=== PATIENT | male | born 1985 | race Caucasian/White ===

== ENCOUNTER 2016-10-05 18:18 | Emergency (ER) | payer OTHER ==
[2016-10-05 18:30] VITALS: RESP 18; TEMP 98.8
[2016-10-05] MEDS ORDERED: SODIUM CHLORIDE 0.9% 1,000 ML IV ONE (18:42)
[2016-10-05] MEDS ORDERED: KETOROLAC 30 MG/ML 1 ML VIAL IVP STA (18:42)
--- NOTE | 2016-10-05 18:46 | ED ---
Abdominal Pain HPI - General Chief Complaint: Abdominal Pain Stated Complaint: abd pain Time Seen by Provider: 10/05/16 18:28 Source: patient, RN notes reviewed Mode of arrival: ambulatory Limitations: no limitations - History of Present Illness Initial Comments: Patient is a 30-year-old male presents to the emergency room for evaluation of abdominal pain. Patient states abdominal pain began last night. Patient states he had a sharp constant right upper quadrant pain. Patient states she's had this type of pain before. Patient states she was here about 2 months ago with the same issue and they told him that nothing was wrong. Patient denies following up with the GI specialist or his primary care provider. Patient denies nausea, vomiting, diarrhea, constipation. Patient denies history of abdominal surgeries. Patient states his pain is worse with movement. Patient denies pain or burning during urination, trouble urinating or blood in the urine. Patient denies chest pain, shortness of breath, headache, dizziness, fevers, chills. Patient denies new foods. Patient states pain is not worsened with eating. - Related Data Home Medications Medication Instructions Recorded Confirmed Gabapentin 800 mg PO TID 06/25/16 10/05/16 Previous Rx's Medication Instructions Recorded Dicyclomine [Bentyl] 10 mg PO TID PRN #15 capsule 10/05/16 Allergies Allergy/AdvReac Type Severity Reaction Status Date / Time No Known Allergies Allergy Verified 10/05/16 18:44 Review of Systems ROS Statement: Those systems with pertinent positive or pertinent negative responses have been documented in the HPI. ROS Other: All systems not noted in ROS Statement are negative. 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 History of Any Multi-Drug Resistant Organisms: None Reported Past Surgical History: Joint Replacement, Orthopedic Surgery Additional Past Surgical History / Comment(s): Left jaw surgery with plate. Past Psychological History: Anxiety, Depression Smoking Status: Current every day smoker Past Alcohol Use History: None Reported Past Drug Use History: None Reported General Exam - General Exam Comments Initial Comments: Sitting in exam room in no acute distress. Limitations: no limitations General appearance: alert, in no apparent distress Head exam: Present: atraumatic, normocephalic, normal inspection Eye exam: Present: normal appearance ENT exam: Present: normal exam Neck exam: Present: normal inspection Respiratory exam: Present: normal lung sounds bilaterally. Absent: respiratory distress Cardiovascular Exam: Present: regular rate, normal rhythm, normal heart sounds GI/Abdominal exam: Present: soft, tenderness (RUQ), normal bowel sounds. Absent : distended, guarding, rebound, rigid Extremities exam: Present: normal inspection Back exam: Present: normal inspection Neurological exam: Present: alert, oriented X3, CN II-XII intact, normal gait Psychiatric exam: Present: normal affect, normal mood Skin exam: Present: warm, dry, intact, normal color. Absent: rash Course Vital Signs 10/05/16 10/05/16 18:27 21:13 Temperature 98.8 F 98.8 F Pulse Rate 99 77 Respiratory 18 18 Rate Blood Pressure 132/83 128/77 O2 Sat by Pulse 100 99 Oximetry Medical Decision Making - Medical Decision Making Patient a 30-year-old male presents to the emergency room for reevaluation of abdominal pain. Patient has been here multiple times for the same complaint. Labs show no significant findings. Advised patient to follow-up with GI specialist or his primary care provider for further evaluation. Patient states he understands everything that was discussed with him. Return parameters discussed. Case discussed with Dr. Chand. - Lab Data Result diagrams: 10/05/16 18:55 10/05/16 18:55 Lab Results 10/05/16 10/05/16 10/05/16 Range/Units 18:55 18:55 18:55 WBC 6.0 (3.8-10.6) k/uL RBC 5.15 (4.30-5.90) m/uL Hgb 15.5 (13.0-17.5) gm/dL Hct 47.1 (39.0-53.0) % MCV 91.3 (80.0-100.0) fL MCH 30.1 (25.0-35.0) pg MCHC 33.0 (31.0-37.0) g/dL RDW 11.8 (11.5-15.5) % Plt Count 171 (150-450) k/uL Neutrophils % 59 % Lymphocytes % 28 % Monocytes % 7 % Eosinophils % 2 % Basophils % 1 % Neutrophils # 3.6 (1.3-7.7) k/uL Lymphocytes # 1.7 (1.0-4.8) k/uL Monocytes # 0.4 (0-1.0) k/uL Eosinophils # 0.1 (0-0.7) k/uL Basophils # 0.1 (0-0.2) k/uL Sodium 142 (137-145) mmol/L Potassium 3.5 (3.5-5.1) mmol/L Chloride 100 (98-107) mmol/L Carbon Dioxide 30 (22-30) mmol/L Anion Gap 12 mmol/L BUN 8 L (9-20) mg/dL Creatinine 0.75 (0.66-1.25) mg/dL Est GFR (MDRD) Af Amer >60 (>60 ml/min/1.73 sqM) Est GFR (MDRD) Non-Af >60 (>60 ml/min/1.73 sqM) Glucose 89 (74-99) mg/dL Calcium 10.0 (8.4-10.2) mg/dL Total Bilirubin 0.6 (0.2-1.3) mg/dL AST 22 (17-59) U/L ALT 28 (21-72) U/L Alkaline Phosphatase 59 (38-126) U/L Total Protein 7.4 (6.3-8.2) g/dL Albumin 4.6 (3.5-5.0) g/dL Amylase 63 (30-110) U/L Lipase 66 (23-300) U/L Urine Color Colorless Urine Appearance Clear (Clear) Urine pH 7.5 (5.0-8.0) Ur Specific [place] 1.000 L (1.001-1.035) Urine Protein Negative (Negative) Urine Glucose (UA) Negative (Negative) Urine Ketones Negative (Negative) Urine Blood Negative (Negative) Urine Nitrate Negative (Negative) Urine Bilirubin Negative (Negative) Urine Urobilinogen <2.0 (<2.0) mg/dL Ur Leukocyte Esterase Negative (Negative) - Radiology Data Radiology results: report reviewed, image reviewed Disposition Clinical Impression: Abdominal pain Disposition: HOME SELF-CARE Condition: Good Instructions: Abdominal Pain (ED) Additional Instructions: Take prescribed medications as needed. Please follow-up with a GI specialist for further evaluation. If any new symptom arises, symptoms worsen or fever develops, return to ER as soon as possible. Prescriptions: Dicyclomine [Bentyl] 10 mg PO TID PRN #15 capsule PRN Reason: Pain Referrals: Carissa Schroeder MD [Primary Care Provider] - 1-2 days Trixie Nguyen MD [STAFF PHYSICIAN] - 1-2 days Time of Disposition: 20:49
[2016-10-05 19:25] LABS: Appearance,Urine Clear (Clear); Bilirubin,Urine Negative (Negative); Glucose,Urine (UA) Negative (Negative); Ketones,Urine Negative (Negative); Leukocyte Esterase,Urine Negative (Negative); Nitrite,Urine Negative (Negative); PH, Urine 7.5 (5.0-8.0); Protein,Urine Negative (Negative); UA Billing (MACRO vs. MICRO) CHEM; Urobilinogen,Urine <2.0 mg/dL (<2.0)
[2016-10-05 19:31] LABS: Basophils # (A) 0.1 k/uL (0-0.2); Basophils % (A) 1 %; CH 30.9; Eosinophils # (A) 0.1 k/uL (0-0.7); Eosinophils % (A) 2 %; HCT 47.1 % (39.0-53.0); HDW 2.49; HGB 15.5 gm/dL (13.0-17.5); Luc # (Auto) 0.17; Luc % (Auto) 3; Lymphocytes # (A) 1.7 k/uL (1.0-4.8); Lymphocytes % (A) 28 %; MCH 30.1 pg (25.0-35.0); MCV 91.3 fL (80.0-100.0); Mean Platelet Volume 8.9; Monocytes # (A) 0.4 k/uL (0-1.0); Monocytes % (A) 7 %; Neutrophils # (A) 3.6 k/uL (1.3-7.7); Neutrophils % (A) 59 %; RBC 5.15 m/uL (4.30-5.90); RDW 11.8 % (11.5-15.5); WBC (Perox) 6.22
[2016-10-05 19:37] LABS: ALT 28 U/L (21-72); AST 22 U/L (17-59); Alkaline Phosphatase 59 U/L (38-126); Amylase 63 U/L (30-110); Anion Gap 12 mmol/L; Blood Urea Nitrogen 8 mg/dL (9-20); Carbon Dioxide 30 mmol/L (22-30); Chloride 100 mmol/L (98-107); Glucose 89 mg/dL (74-99); Non-African American GFR(MDRD) >60 (>60 ml/min/1.73 sqM); Potassium 3.5 mmol/L (3.5-5.1); Sodium 142 mmol/L (137-145); Total Bilirubin 0.6 mg/dL (0.2-1.3); Total Protein 7.4 g/dL (6.3-8.2)
--- NOTE | 2016-10-05 20:09 | XR ---
EXAMINATION TYPE: XR KUB DATE OF EXAM: 10/05/2016 8:04 PM COMPARISON: 07/19/2016 INDICATION: Right upper quadrant pain TECHNIQUE: Single view abdomen upright view FINDINGS: There is a normal bowel gas pattern. Psoas margins are normal. No organomegaly is present. No suspicious air-fluid levels or differential air-fluid levels are evident. No free air is present. No abnormal calcifications are evident. IMPRESSION: 1. Normal upright abdomen
[2016-10-05] MEDS ORDERED: FAMOTIDINE 20 MG/2 ML VIAL IV STA (20:51)
[2016-10-05] MEDS ORDERED: DICYCLOMINE 20 MG TAB PO STA (20:51)
[2016-10-05 21:15] VITALS: BP 128/77; PULSE 77
== END 2016-10-05 21:21 | disposition home or self-care (01) ==
LOC: EC 18:18
DX: R10.11 Right upper quadrant pain (principal); G62.9 Polyneuropathy, unspecified; F17.200 Nicotine dependence, unspecified, uncomplicated; Z85.830 Personal history of malignant neoplasm of bone; Z79.899 Other long term (current) drug therapy
CPT/HCPCS: 36415; 80053; 82150; 83690; 85025; 81003; 74000; 99284; 96374; 96375; 96361; J1885

== ENCOUNTER 2016-10-08 20:40 | Emergency (ER) | payer OTHER ==
[2016-10-08 20:47] VITALS: BP 120/75; PULSE 100; RESP 20; TEMP 98.4
[2016-10-08] MEDS ORDERED: HYDROcodone/APAP 7.5-325MG 1 EACH TAB PO ONE (21:09)
[2016-10-08] MEDS ORDERED: IBUPROFEN 800 MG TAB PO STA (21:09)
--- NOTE | 2016-10-08 21:17 | ED ---
ENT HPI - General Chief complaint: Dental/Oral Stated complaint: Dental Pain Time Seen by Provider: 10/08/16 21:00 Source: patient, RN notes reviewed Mode of arrival: ambulatory Limitations: no limitations - History of Present Illness Initial comments: This is a 30-year-old male with a benign history states he has dental pain. He states he broke his 2 lower mid incisors off years ago they were glued back He broke off summary said pain intermittently since then he was on amoxicillin which she ran out. He does have appointment to see a dentist in [facility] in 1 week. He denies any fevers chills sweats is 8/10 pain. No drainage or discharge from the gums. No new injury. MD complaint: tooth pain - Related Data Home Medications Medication Instructions Recorded Confirmed Gabapentin 800 mg PO TID 06/25/16 10/08/16 Previous Rx's Medication Instructions Recorded Hydrocodone/Acetaminophen [[place] 1 each PO Q6HR PRN #20 tab 10/08/16 5-325] Ibuprofen [Motrin] 800 mg PO Q6HR PRN #20 tab 10/08/16 Allergies Allergy/AdvReac Type Severity Reaction Status Date / Time No Known Allergies Allergy Verified 10/08/16 20:57 Review of Systems ROS Statement: Those systems with pertinent positive or pertinent negative responses have been documented in the HPI. ROS Other: All systems not noted in ROS Statement are negative. 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 History of Any Multi-Drug Resistant Organisms: None Reported Past Surgical History: Joint Replacement, Orthopedic Surgery Additional Past Surgical History / Comment(s): Left jaw surgery with plate. Past Psychological History: Anxiety, Depression Smoking Status: Current every day smoker Past Alcohol Use History: None Reported Past Drug Use History: None Reported General Exam - General Exam Comments Initial Comments: This is a well-developed well-nourished awake alert oriented 3 male Limitations: no limitations General appearance: alert, anxious Head exam: Present: atraumatic, normocephalic, normal inspection Eye exam: Present: normal appearance, PERRL, EOMI. Absent: scleral icterus, conjunctival injection, periorbital swelling ENT exam: Present: mucous membranes moist, other (The lower anterior left incisors. Demonstrate fracture at about the mid level. 2 of them are fractured. No drainage or discharge. No gum erythema.) Neck exam: Present: normal inspection. Absent: tenderness, meningismus, lymphadenopathy Respiratory exam: Present: normal lung sounds bilaterally. Absent: respiratory distress, wheezes, rales, rhonchi, stridor Cardiovascular Exam: Present: regular rate, normal rhythm, normal heart sounds. Absent: systolic murmur, diastolic murmur, rubs, gallop, clicks Extremities exam: Present: normal inspection, full ROM Neurological exam: Present: alert, oriented X3, CN II-XII intact Psychiatric exam: Present: normal affect, normal mood Skin exam: Present: warm, dry, intact, normal color. Absent: rash Course Vital Signs 10/08/16 20:44 Temperature 98.4 F Pulse Rate 100 Respiratory 20 Rate Blood Pressure 120/75 O2 Sat by Pulse 100 Oximetry Medical Decision Making - Medical Decision Making At this time there is no indication of infection his pain likely from exposed nerve roots. Patient will be placed on appropriate pain medication is a keep his appointment next week with a dentist and return when necessary Disposition Clinical Impression: Fracture of tooth, Toothache Disposition: HOME SELF-CARE Condition: Good Instructions: Toothache (ED) Prescriptions: Hydrocodone/Acetaminophen [[place] 5-325] 1 each PO Q6HR PRN #20 tab PRN Reason: Pain Ibuprofen [Motrin] 800 mg PO Q6HR PRN #20 tab PRN Reason: Pain
== END 2016-10-08 21:22 | disposition home or self-care (01) ==
LOC: EC 20:40
DX: S02.5XXA Fracture of tooth (traumatic), initial encounter for closed fracture (principal); F17.200 Nicotine dependence, unspecified, uncomplicated; Z85.89 Personal history of malignant neoplasm of other organs and systems
CPT/HCPCS: 99282

== ENCOUNTER 2016-10-23 17:40 | Emergency (ER) | payer OTHER ==
[2016-10-23 17:54] VITALS: BP 142/71; PULSE 90; RESP 18; TEMP 98.7
--- NOTE | 2016-10-23 18:12 | ED ---
ENT HPI - General Chief complaint: Dental/Oral Stated complaint: oral pain Time Seen by Provider: 10/23/16 17:49 Source: patient, RN notes reviewed, old records reviewed Mode of arrival: ambulatory Limitations: no limitations - History of Present Illness Initial comments: Patient is a 30-year-old male with chief complaint of right lower dental pain for approximately one week. Patient reports that he is seeing a dentist next week in [place]. He reports that he isn't taking antibiotics that he's had left over at home for the past few days try to help with infection. He reports that his lower right molar gums were swelling. Patient states that he's been taking Motrin Tylenol with little relief the pain. Patient denies any swelling or over the face or inability to open and close the jaw. Patient reports that he does have a history of a jaw surgery a few years ago in a metal plate was installed after start was fractured. Patient denies any recent fever, chills, shortness of breath, chest pain, back pain, abdominal pain, nausea vomiting, numbness or tingling, dysuria or hematuria, constipation or diarrhea, headaches or visual changes, or any other current symptoms - Related Data Home Medications Medication Instructions Recorded Confirmed Gabapentin 800 mg PO TID 06/25/16 10/08/16 Previous Rx's Medication Instructions Recorded Hydrocodone/Acetaminophen [[place] 1 each PO Q6HR PRN #20 tab 10/08/16 5-325] Ibuprofen [Motrin] 800 mg PO Q6HR PRN #20 tab 10/08/16 HYDROcodone/APAP 5-325MG [[place] 1 tab PO Q6HR PRN #12 tab 10/23/16 5-325] Penicillin V Potassium [Pen Vee K] 500 mg PO QID #28 tab 10/23/16 Allergies Allergy/AdvReac Type Severity Reaction Status Date / Time No Known Allergies Allergy Verified 10/08/16 20:57 Review of Systems ROS Statement: Those systems with pertinent positive or pertinent negative responses have been documented in the HPI. ROS Other: All systems not noted in ROS Statement are negative. 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 History of Any Multi-Drug Resistant Organisms: None Reported Past Surgical History: Joint Replacement, Orthopedic Surgery Additional Past Surgical History / Comment(s): Left jaw surgery with plate. Past Psychological History: Anxiety, Depression Smoking Status: Current every day smoker Past Alcohol Use History: None Reported Past Drug Use History: None Reported General Exam Limitations: no limitations General appearance: alert, in no apparent distress Head exam: Present: atraumatic, normocephalic, normal inspection Eye exam: Present: normal appearance, PERRL, EOMI. Absent: scleral icterus, conjunctival injection, periorbital swelling ENT exam: Present: normal exam, normal oropharynx, mucous membranes moist, TM's normal bilaterally, other (Patient has extremely poor dentition. Evidence of dental caries in tooth #31, 19, 3, 14.) Neck exam: Present: normal inspection. Absent: tenderness, meningismus, lymphadenopathy Respiratory exam: Present: normal lung sounds bilaterally. Absent: respiratory distress, wheezes, rales, rhonchi, stridor Cardiovascular Exam: Present: regular rate, normal rhythm, normal heart sounds. Absent: systolic murmur, diastolic murmur, rubs, gallop, clicks GI/Abdominal exam: Present: soft, normal bowel sounds. Absent: distended, tenderness, guarding, rebound, rigid Extremities exam: Present: normal inspection, full ROM, normal capillary refill. Absent: tenderness, pedal edema, joint swelling, calf tenderness Back exam: Present: normal inspection Neurological exam: Present: alert, oriented X3, CN II-XII intact Psychiatric exam: Present: normal affect, normal mood Skin exam: Present: warm, dry, intact, normal color. Absent: rash Course Vital Signs 10/23/16 17:52 Temperature 98.7 F Pulse Rate 90 Respiratory 18 Rate Blood Pressure 142/71 O2 Sat by Pulse 98 Oximetry Medical Decision Making - Medical Decision Making Patient is a 30-year-old male with chief complaint of right lower dental pain for approximately one week. Patient reports that he is seeing a dentist next week in [place]. He reports that he isn't taking antibiotics that he's had left over at home for the past few days try to help with infection. He reports that his lower right molar gums were swelling. Patient states that he's been taking Motrin Tylenol with little relief the pain. Patient is declining to have a dental block at this time. Patient will be given a prescription for Pen- V[place]rn Agui[place], [place] 5 #10. Patient advised to follow up with primary care provider. Patient understands that he needs follow-up with the dentist as well and return parameters were discussed. Disposition Clinical Impression: Pain, dental, Dental caries Disposition: HOME SELF-CARE Condition: Good Instructions: Dental Caries (ED), Toothache (ED) Additional Instructions: Patient denies follow-up with dentist. Patient also advised to return to emergency department if any increased signs of swelling or unable to open or close jaw occur. Take antibiotics as prescribed and his pain medication as instructed. Prescriptions: HYDROcodone/APAP 5-325MG [[place] 5-325] 1 tab PO Q6HR PRN #12 tab PRN Reason: Pain Penicillin V Potassium [Pen Vee K] 500 mg PO QID #28 tab Referrals: Nida Falcon FNPBC [Primary Care Provider] - 1-2 days Time of Disposition: 18:09
== END 2016-10-23 18:20 | disposition home or self-care (01) ==
LOC: EC 17:40
DX: K02.9 Dental caries, unspecified (principal); G62.9 Polyneuropathy, unspecified; F17.200 Nicotine dependence, unspecified, uncomplicated; Z85.831 Personal history of malignant neoplasm of soft tissue; Z79.899 Other long term (current) drug therapy
CPT/HCPCS: 99283

== ENCOUNTER → 2016-10-30 | Outpatient (CLI) | payer OTHER ==
--- NOTE | 2016-10-30 16:25 | CT ---
EXAMINATION TYPE: CT shoulder LT wo con DATE OF EXAM: 10/30/2016 3:51 PM COMPARISON: NONE HISTORY: History of osteogenic sarcoma as a child. Surgery done to implant fibula to shoulder. Pain x years. CT DLP: 294.90 mGycm Automated exposure control for dose reduction was used. FINDINGS: Axial images at 3 mm thick sections were obtained. Reconstructed images in the coronal and sagittal p bernardo are reviewed. Three-D reconstructed images are reviewed. The scapula appears intact. The glenoid appears unremarkable. The patient's transplanted proximal humerus appears intact. There multiple surgical clips within the distal diaphyseal region. The transplanted fibula replacing the humerus appears small but intact with out fracture. Soft tissues appear unremarkable. No cortical erosions are evident. No elevated periosteal reaction i s evident. IMPRESSION: UNREMARKABLE POST TRANSPLANT AND FIBULA LEFT HUMERAL REGION. NO ACUTE OSSEOUS ABNORMALITY IS IDENTIFI ED.
== END | disposition home or self-care (01) ==
LOC: RADCTMAIN 15:32
PROVIDERS: ATTEND Nurse Practitioner Family
DX: M25.512 Pain in left shoulder (principal); Z94.6 Bone transplant status

== ENCOUNTER 2016-11-09 13:10 | Emergency (ER) | payer OTHER ==
[2016-11-09 13:18] VITALS: BP 133/73; PULSE 89; RESP 20; TEMP 97.7
--- NOTE | 2016-11-09 13:35 | ED ---
General Adult HPI - General Chief complaint: Dental/Oral Stated complaint: Dental Pain Time Seen by Provider: 11/09/16 13:20 Source: patient, RN notes reviewed Mode of arrival: ambulatory Limitations: no limitations - History of Present Illness Initial comments: This is a 31-year-old male who presents with dental pain 2 weeks. Patient states he has already been an approximately 1 week of penicillin and states he has 1 week left. Patient states he had some swelling to the front lower jaw last week that has improved with penicillin. Patient states he presents to the today has a cannot get his pain under control. Patient states he has been taking Tylenol and Motrin for the pain. With further questioning patient also states he has tramadol at home which he has been taking as well. Patient denies any fever/chills, foul odor or drainage from the area. Patient states he has a follow-up with a dentist on Thursday for tooth extraction. Patient admits to tobacco use but denies any alcohol or drug use. Patient denies any recent shortness breath, chest pain, abdominal pain, nausea/vomiting/diarrhea, back pain, numbness, tingling, hematuria, headache, or visual changes, or any other complaints. - Related Data Home Medications Medication Instructions Recorded Confirmed Gabapentin 800 mg PO TID 06/25/16 10/30/16 Previous Rx's Medication Instructions Recorded Ibuprofen [Motrin] 800 mg PO Q6HR PRN #20 tab 10/08/16 HYDROcodone/APAP 5-325MG [[place] 1 tab PO Q6HR PRN #15 tab 10/30/16 5-325] Allergies Allergy/AdvReac Type Severity Reaction Status Date / Time No Known Allergies Allergy Verified 11/09/16 13:15 Review of Systems ROS Statement: Those systems with pertinent positive or pertinent negative responses have been documented in the HPI. ROS Other: All systems not noted in ROS Statement are negative. 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 History of Any Multi-Drug Resistant Organisms: None Reported Past Surgical History: Joint Replacement, Orthopedic Surgery Additional Past Surgical History / Comment(s): Left jaw surgery with plate. Past Psychological History: Anxiety, Depression Smoking Status: Current every day smoker Past Alcohol Use History: None Reported Past Drug Use History: None Reported General Exam - General Exam Comments Initial Comments: General: The patient is awake and alert, in no distress, and does not appear acutely ill. Eye: Pupils are equal, round and reactive to light, extra-ocular movements are intact. No nystagmus. There is normal conjunctiva bilaterally. No signs of icterus. Ears: TMs pink and pearly with intact cone of light bilaterally. Normal external ear canals Nose: Nasal turbinates pink and moist Mouth and throat: Poor dental hygiene, there is tenderness on palpation of teeth 24 and 23 and also #20. There is no surrounding erythema, drainage or swelling. There are moist mucous membranes and no oral lesions. Neck: The neck is supple, there is no tenderness or JVD. Cardiovascular: There is a regular rate and rhythm. No murmur, rub or gallop is appreciated. Respiratory: Lungs are clear to auscultation, respirations are non-labored, breath sounds are equal. No wheezes, stridor, rales, or rhonchi. Musculoskeletal: Normal ROM, no tenderness. Strength 5/5. Sensation intact. Radial pulses equal bilaterally 2+. Neurological: A&O x 3. CN II-XII intact, There are no obvious motor or sensory deficits. Coordination appears grossly intact. Speech is normal. Skin: Skin is warm and dry and no rashes or lesions are noted. Psychiatric: Cooperative, appropriate mood & affect, normal judgment. Limitations: no limitations Course Vital Signs 11/09/16 13:15 Temperature 97.7 F Pulse Rate 89 Respiratory 20 Rate Blood Pressure 133/73 O2 Sat by Pulse 98 Oximetry Medical Decision Making - Medical Decision Making This is a 31-year-old male who presents with dental pain 2 weeks. Patient is already on penicillin and states he has a week left. On physical exam patient is afebrile in the EC. Poor dental hygiene, there is tenderness on palpation of teeth 24 and 23 and also #20. There is no surrounding erythema, drainage or swelling. There are moist mucous membranes and no oral lesions. Patient already has tramadol, Tylenol and Motrin at home. I discussed that patient should continue his tramadol, Tylenol and Motrin and he needs to follow-up with his dentist for any further pain medication. I discussed that patient should finish his entire course of antibiotics. Patient was just seen in the EC 10 days ago and stated he had a follow-up in 1 week with his dentist and patient never followed up. I discussed that patient will receive one [place] before discharge. I discussed return parameters. I discussed the importance of following up with a dentist. Discussed that patient should follow up with PCP in one to 2 days or return to the EC for any worsening symptoms or for any further concerns. Patient was receptive to this plan and patient will be discharged home. Disposition Clinical Impression: Pain, dental Disposition: HOME SELF-CARE Condition: Good Instructions: Toothache (ED) Additional Instructions: Please continue Tylenol and Motrin. Please use the tramadol you have at home for breakthrough pain only. Please use medication as discussed. Please continue your antibiotics and follow up with your dentist. May use warm compresses to the area. [facility] dental plan: [address] [place] [address], . [employer]: Have to pay $50 for x -rays and the rest is covered. [phone]. Please follow-up with family doctor in the next 2 days of symptoms have not improved. Please return to emergency room if the symptoms increase or worsen or for any other concerns. Referrals: Bernie Groves MD [Primary Care Provider] - 1-2 days Time of Disposition: 13:43
[2016-11-09] MEDS ORDERED: HYDROcodone/APAP 5-325MG 1 EACH TAB PO STA (13:42)
== END 2016-11-09 13:56 | disposition home or self-care (01) ==
LOC: EC 13:10
DX: K08.89 Other specified disorders of teeth and supporting structures (principal); F17.200 Nicotine dependence, unspecified, uncomplicated; Z85.830 Personal history of malignant neoplasm of bone; Z79.899 Other long term (current) drug therapy
CPT/HCPCS: 99282

== ENCOUNTER 2016-11-15 00:01 | Emergency (ER) | payer OTHER ==
[2016-11-15 00:11] VITALS: BP 132/73; PULSE 98; RESP 16
--- NOTE | 2016-11-15 00:50 | ED ---
ENT HPI - General Chief complaint: Dental/Oral Stated complaint: dental pain Time Seen by Provider: 11/15/16 00:23 Source: patient, RN notes reviewed, old records reviewed Mode of arrival: ambulatory Limitations: no limitations - History of Present Illness Initial comments: Patient is 31-year-old male with chief complaint of chronic lower dental pain. Patient has been here multiple times in the past month for pain of the similar tooth. He continues to state that he's been trying to go to a dentist but minute appointment gets declined. Patient states that he had a appointment on last Thursday however he was unable to fulfill the appointment because they wanted a high down payment. Patient reports that he called another dental clinic and is seeing [facility] on the following Thursday. Patient states that he has been taking Motrin Tylenol in the meantime. He states that his pain is a more severe. He states that he will never come back to emergency department again for pain medicine until he can see this primary care provider as well as the dentist next week. Patient denies any fever or chills or increased swelling. He states that he is antibiotics from his previous trip to the emergency department. Patient denies any nausea or vomiting or shortness of breath. - Related Data Home Medications Medication Instructions Recorded Confirmed Gabapentin 800 mg PO TID 06/25/16 11/15/16 Previous Rx's Medication Instructions Recorded HYDROcodone/APAP 5-325MG [[place] 1 tab PO Q6HR PRN #8 tab 11/15/16 5-325] Allergies Allergy/AdvReac Type Severity Reaction Status Date / Time codeine Allergy Rash/Hives Verified 11/15/16 00:11 Review of Systems ROS Statement: Those systems with pertinent positive or pertinent negative responses have been documented in the HPI. ROS Other: All systems not noted in ROS Statement are negative. 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 History of Any Multi-Drug Resistant Organisms: None Reported Past Surgical History: Joint Replacement, Orthopedic Surgery Additional Past Surgical History / Comment(s): Left jaw surgery with plate. Past Psychological History: Anxiety, Depression Smoking Status: Current every day smoker Past Alcohol Use History: None Reported Past Drug Use History: None Reported General Exam - General Exam Comments Initial Comments: Pleasant 31-year-old male. No distress. Limitations: no limitations General appearance: alert, in no apparent distress Head exam: Present: atraumatic, normocephalic, normal inspection Eye exam: Present: normal appearance, PERRL, EOMI. Absent: scleral icterus, conjunctival injection, periorbital swelling ENT exam: Present: normal exam, mucous membranes moist. Absent: normal oropharynx (Chronic poor dentition.) Neck exam: Present: normal inspection. Absent: tenderness, meningismus, lymphadenopathy Respiratory exam: Present: normal lung sounds bilaterally. Absent: respiratory distress, wheezes, rales, rhonchi, stridor Cardiovascular Exam: Present: regular rate, normal rhythm, normal heart sounds. Absent: systolic murmur, diastolic murmur, rubs, gallop, clicks GI/Abdominal exam: Present: soft, normal bowel sounds. Absent: distended, tenderness, guarding, rebound, rigid Extremities exam: Present: normal inspection, full ROM, normal capillary refill. Absent: tenderness, pedal edema, joint swelling, calf tenderness Back exam: Present: normal inspection Neurological exam: Present: alert, oriented X3, CN II-XII intact Psychiatric exam: Present: normal affect, normal mood Skin exam: Present: warm, dry, intact, normal color. Absent: rash Course Vital Signs 11/15/16 00:07 Pulse Rate 98 Respiratory 16 Rate Blood Pressure 132/73 O2 Sat by Pulse 100 Oximetry Medical Decision Making - Medical Decision Making Patient is 31-year-old male with chief complaint of chronic lower dental pain. Patient has been here multiple times in the past month for pain of the similar tooth. He continues to state that he's been trying to go to a dentist but minute appointment gets declined. Patient states that he had a appointment on last Thursday however he was unable to fulfill the appointment because they wanted a high down payment. Patient reports that he called another dental clinic and is seeing [facility] on the following Thursday. Patient reports that he has no further pain medication at this time. He states he does have antibiotics left. Patient will be given a prescription for 5 [place]. I discussed the has to follow-up. I discussed he'll not be allowed to receive anything further in the emergency department. Disposition Clinical Impression: Dental implant pain Disposition: HOME SELF-CARE Condition: Good Instructions: Dental Caries (ED) Additional Instructions: Follow-up with dentist on appointment. Patient apply Orajel over the teeth. Return to emergency department any alarming signs or symptoms occur. Continue to complete antibiotic. Prescriptions: HYDROcodone/APAP 5-325MG [[place] 5-325] 1 tab PO Q6HR PRN #8 tab PRN Reason: Pain Referrals: Bernie Groves MD [Primary Care Provider] - 1-2 days Time of Disposition: 00:50
== END 2016-11-15 00:57 | disposition home or self-care (01) ==
LOC: EC 00:01
DX: K08.89 Other specified disorders of teeth and supporting structures (principal); G89.18 Other acute postprocedural pain; F41.9 Anxiety disorder, unspecified; F32.9 Major depressive disorder, single episode, unspecified; F17.200 Nicotine dependence, unspecified, uncomplicated; Z79.899 Other long term (current) drug therapy; Z88.5 Allergy status to narcotic agent; Z98.890 Other specified postprocedural states; Y83.8 Other surgical procedures as the cause of abnormal reaction of the patient, or of later complication, without mention of misadventure at the time of the procedure
CPT/HCPCS: 99283

== ENCOUNTER 2016-12-08 15:07 | Emergency (ER) | payer OTHER ==
[2016-12-08] MEDS ORDERED: SODIUM CHLORIDE 0.9% 1,000 ML IV ONE (15:55)
[2016-12-08] MEDS ORDERED: MORPHINE SULFATE 4 MG/ML SYRINGE IVP STA (15:55)
[2016-12-08] MEDS ORDERED: ONDANSETRON 4 MG/2 ML VIAL IVP STA (15:55)
--- NOTE | 2016-12-08 15:55 | ED ---
Abdominal Pain HPI - General Chief Complaint: Abdominal Pain Stated Complaint: Abd Pain Time Seen by Provider: 12/08/16 15:31 Source: patient, RN notes reviewed, old records reviewed Mode of arrival: ambulatory Limitations: no limitations - History of Present Illness Initial Comments: 31-year-old male presenting for right upper quadrant abdominal pain. Patient states he's had pain present for the past 3 days which is gradually worsening. He denies any nausea or vomiting associated. He denies any fevers or chills. States he has had this type of pain in the past. He has had a previous ultrasound about 6 months ago. He has not followed up with GI or his PCP for this recently. He has tried NSAIDs without relief. - Related Data Home Medications Medication Instructions Recorded Confirmed Gabapentin 800 mg PO TID PRN 06/25/16 12/08/16 Sertraline HCl [Zoloft] 50 mg PO HS 12/08/16 12/08/16 Previous Rx's Medication Instructions Recorded Dicyclomine [Bentyl] 20 mg PO QID PRN #16 tablet 12/08/16 HYDROcodone/APAP 5-325MG [[place] 1 tab PO Q6HR PRN #12 tab 12/08/16 5-325] Ibuprofen [Motrin] 800 mg PO Q8HR PRN #21 tab 12/08/16 Ondansetron Odt [Zofran Odt] 4 mg PO Q8HR PRN #12 tab 12/08/16 Allergies Allergy/AdvReac Type Severity Reaction Status Date / Time codeine Allergy Rash/Hives/ Verified 12/08/16 16:21 Itching Review of Systems ROS Statement: Those systems with pertinent positive or pertinent negative responses have been documented in the HPI. ROS Other: All systems not noted in ROS Statement are negative. 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 History of Any Multi-Drug Resistant Organisms: None Reported Past Surgical History: Joint Replacement, Orthopedic Surgery Additional Past Surgical History / Comment(s): Left jaw surgery with plate. Past Psychological History: Anxiety, Depression Smoking Status: Current every day smoker Past Alcohol Use History: None Reported Past Drug Use History: None Reported General Exam - General Exam Comments Initial Comments: General: Awake and Alert. No acute distress. Does not appear acutely ill. Eyes: GILMA, EOM intact. No nystagmus. No scleral icterus. HENT: Atraumatic, normocephalic. Mucous membranes moist. Trachea midline. Neck: The neck is supple, there is no tenderness or JVD. Cardiovascular: Regular rate and rhythm. No murmur, rub, or gallop is appreciated. Distal pulses intact. Respiratory: Lungs are clear to auscultation bilaterally. No wheezes, rales, rhonchi. No respiratory distress. Gastrointestinal: Soft, mild right upper quadrant tenderness. No rebound or guarding. Non-distended. No masses or organomegaly noted. No CVA tenderness. Musculoskeletal: No tenderness. Normal ROM. No gross deformity. No strength deficits. Neurological: A&Ox3. CN II-XII grossly intact, There are no obvious motor or sensory deficits. Coordination appears grossly intact. Speech is normal. Skin: Skin is warm and dry and no rashes or lesions are noted. Psychiatric: Cooperative, appropriate mood & affect, normal judgment. Limitations: no limitations Course Vital Signs 12/08/16 12/08/16 12/08/16 15:18 16:11 17:29 Temperature 98.0 F 98 F Pulse Rate 69 68 70 Respiratory 18 16 16 Rate Blood Pressure 149/79 141/88 126/62 O2 Sat by Pulse 100 99 98 Oximetry Medical Decision Making - Medical Decision Making 31-year-old male presenting for right upper quadrant pain. Patient with mild right upper quadrant tenderness on exam but no evidence of acute peritonitis. Per review of records patient has had recurrent pain in this area over several previous visits. He has had a previous ultrasound about 6 months ago which showed gallbladder contraction but no acute cholelithiasis or cholecystitis. Lab work was performed again today which was grossly unremarkable. No evidence of biliary obstructive process at this time. On reevaluation patient states he is feeling improved. Per review of records, I have previously seen this patient and recommended HIDA scan for further evaluation that time. Patient has not followed up with PCP or GI at this time. Recommend he follow up and have outpatient HIDA scan further evaluation of biliary dyskinesia. Referral for GI provided, although we discussed he may go through his PCP for this as well. Discussed symptomatic management and Rx provided in the interim. Discussed concerning signs symptoms for immediate return to the ED. Patient is agreeable with plan and discharge. - Lab Data Result diagrams: 12/08/16 16:00 12/08/16 16:00 Lab Results 12/08/16 12/08/16 Range/Units 16:00 16:00 WBC 7.0 (3.8-10.6) k/uL RBC 5.21 (4.30-5.90) m/uL Hgb 16.2 (13.0-17.5) gm/dL Hct 48.7 (39.0-53.0) % MCV 93.5 (80.0-100.0) fL MCH 31.1 (25.0-35.0) pg MCHC 33.3 (31.0-37.0) g/dL RDW 13.1 (11.5-15.5) % Plt Count 196 (150-450) k/uL Neutrophils % 55 % Lymphocytes % 32 % Monocytes % 7 % Eosinophils % 2 % Basophils % 0 % Neutrophils # 3.9 (1.3-7.7) k/uL Lymphocytes # 2.3 (1.0-4.8) k/uL Monocytes # 0.5 (0-1.0) k/uL Eosinophils # 0.1 (0-0.7) k/uL Basophils # 0.0 (0-0.2) k/uL Sodium 144 (137-145) mmol/L Potassium 3.8 (3.5-5.1) mmol/L Chloride 104 (98-107) mmol/L Carbon Dioxide 29 (22-30) mmol/L Anion Gap 11 mmol/L BUN 10 (9-20) mg/dL Creatinine 0.76 (0.66-1.25) mg/dL Est GFR (MDRD) Af Amer >60 (>60 ml/min/1.73 sqM) Est GFR (MDRD) Non-Af >60 (>60 ml/min/1.73 sqM) Glucose 96 (74-99) mg/dL Calcium 10.2 (8.4-10.2) mg/dL Magnesium 2.1 (1.6-2.3) mg/dL Total Bilirubin 0.8 (0.2-1.3) mg/dL AST 38 (17-59) U/L ALT 39 (21-72) U/L Alkaline Phosphatase 69 (38-126) U/L Total Protein 7.9 (6.3-8.2) g/dL Albumin 5.0 (3.5-5.0) g/dL Lipase 62 (23-300) U/L - Radiology Data Radiology results: report reviewed Disposition Clinical Impression: Nonspecific abdominal pain Disposition: HOME SELF-CARE Condition: Stable Instructions: Abdominal Pain (ED) Additional Instructions: Please follow up with your regular doctor or a GI specialist to schedule a HIDA scan. Prescriptions: Dicyclomine [Bentyl] 20 mg PO QID PRN #16 tablet PRN Reason: abdominal pain HYDROcodone/APAP 5-325MG [[place] 5-325] 1 tab PO Q6HR PRN #12 tab PRN Reason: Pain Ibuprofen [Motrin] 800 mg PO Q8HR PRN #21 tab PRN Reason: Pain Ondansetron Odt [Zofran Odt] 4 mg PO Q8HR PRN #12 tab PRN Reason: Nausea Referrals: Bernie Groves MD [Primary Care Provider] - 1-2 days Trixie Nguyen MD [STAFF PHYSICIAN] - 1-2 days Time of Disposition: 17:14
[2016-12-08 16:12] VITALS: RESP 16
[2016-12-08 16:22] LABS: Basophils % (A) 0 %; CH 30.8; CHCM 33.1; Eosinophils # (A) 0.1 k/uL (0-0.7); Eosinophils % (A) 2 %; HCT 48.7 % (39.0-53.0); HDW 2.48; HGB 16.2 gm/dL (13.0-17.5); Luc # (Auto) 0.25; Luc % (Auto) 4; Lymphocytes # (A) 2.3 k/uL (1.0-4.8); Lymphocytes % (A) 32 %; MCH 31.1 pg (25.0-35.0); MCHC 33.3 g/dL (31.0-37.0); MCV 93.5 fL (80.0-100.0); Mean Platelet Volume 7.9; Monocytes # (A) 0.5 k/uL (0-1.0); Monocytes % (A) 7 %; Neutrophils # (A) 3.9 k/uL (1.3-7.7); Neutrophils % (A) 55 %; RBC 5.21 m/uL (4.30-5.90); RDW 13.1 % (11.5-15.5); WBC (Perox) 7.22
[2016-12-08 16:32] LABS: ALT 39 U/L (21-72); AST 38 U/L (17-59); Alkaline Phosphatase 69 U/L (38-126); Anion Gap 11 mmol/L; Blood Urea Nitrogen 10 mg/dL (9-20); Calcium 10.2 mg/dL (8.4-10.2); Carbon Dioxide 29 mmol/L (22-30); Chloride 104 mmol/L (98-107); Glucose 96 mg/dL (74-99); Magnesium 2.1 mg/dL (1.6-2.3); Non-African American GFR(MDRD) >60 (>60 ml/min/1.73 sqM); Potassium 3.8 mmol/L (3.5-5.1); Sodium 144 mmol/L (137-145); Total Bilirubin 0.8 mg/dL (0.2-1.3); Total Protein 7.9 g/dL (6.3-8.2)
[2016-12-08] MEDS ORDERED: KETOROLAC 30 MG/ML 1 ML VIAL IVP STA (17:10)
[2016-12-08 17:33] VITALS: BP 126/62; PULSE 70; TEMP 98
== END 2016-12-08 17:33 | disposition home or self-care (01) ==
LOC: EC 15:07
DX: R10.11 Right upper quadrant pain (principal); F32.9 Major depressive disorder, single episode, unspecified; F17.200 Nicotine dependence, unspecified, uncomplicated; Z85.830 Personal history of malignant neoplasm of bone; Z88.5 Allergy status to narcotic agent; Z79.899 Other long term (current) drug therapy
CPT/HCPCS: 99284; 96374; 96375 ×2; 96361; 36415; 80053; 83690; 83735; 85025; J2270; J2405; J1885

== ENCOUNTER 2016-12-14 15:50 | Emergency (ER) | payer OTHER ==
[2016-12-14 15:56] VITALS: BP 136/93; PULSE 97; RESP 20; TEMP 98.5
--- NOTE | 2016-12-14 16:33 | ED ---
Wound/Laceration HPI - General Chief Complaint: Wound/Laceration Stated Complaint: finger lac-[facility] Time Seen by Provider: 12/14/16 16:04 Source: patient Mode of arrival: ambulatory Limitations: no limitations - History of Present Illness Initial Comments: Patient is a 31-year-old right-handed white male presenting to the emergency department with complaints of laceration to the ulnar side of his distal fifth digit. 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 Patient states he tried to catch the glass and cut his finger. Onset/Timin -: minutes(s) Extremity Location: Right: Hand (Ulnar side of distal fifth digit ) Place: work Patient Tetanus UTD: Yes Context: accidental Associated Symptoms: pain (Patient complains of a burning sensation currently rates pain 7 out of 10) Treatments Prior to Arrival: other (Patient states he flushed laceration with water immediately after cutting it) - Related Data Home Medications Medication Instructions Recorded Confirmed Gabapentin 800 mg PO TID PRN 06/25/16 12/08/16 Sertraline HCl [Zoloft] 50 mg PO HS 12/08/16 12/08/16 Previous Rx's Medication Instructions Recorded Dicyclomine [Bentyl] 20 mg PO QID PRN #16 tablet 12/08/16 HYDROcodone/APAP 5-325MG [[place] 1 tab PO Q6HR PRN #12 tab 12/08/16 5-325] Ibuprofen [Motrin] 800 mg PO Q8HR PRN #21 tab 12/08/16 Ondansetron Odt [Zofran Odt] 4 mg PO Q8HR PRN #12 tab 12/08/16 Allergies Allergy/AdvReac Type Severity Reaction Status Date / Time codeine Allergy Rash/Hives/ Verified 12/14/16 15:55 Itching Review of Systems ROS Statement: Those systems with pertinent positive or pertinent negative responses have been documented in the HPI. ROS Other: All systems not noted in ROS Statement are negative. 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 History of Any Multi-Drug Resistant Organisms: None Reported Past Surgical History: Joint Replacement, Orthopedic Surgery Additional Past Surgical History / Comment(s): Left jaw surgery with plate. Past Psychological History: Anxiety, Depression Smoking Status: Current every day smoker Past Alcohol Use History: None Reported Past Drug Use History: None Reported General Exam - General Exam Comments Initial Comments: GENERAL: Pt awake and alert, well-appearing, well-nourished, and in no acute distress. HEAD: Atraumatic, normocephalic. EYES: Pupils equal, round, and reactive to light, extraocular movements intact, sclera anicteric, conjunctiva are normal. ENT: Moist mucous membranes. NECK:supple without lymphadenopathy or JVD. LUNGS: Breath sounds clear to auscultation bilaterally. No wheezes, rales, or rhonchi. HEART: Heart S1, S2, no S3 or S4. Regular rate and rhythm. No murmurs, rubs or gallops. ABDOMEN: Soft, nontender, nondistended, normoactive bowel sounds. EXTREMITIES: Palpable peripheral pulses. Full range of motion of right hand. NEUROLOGICAL: Pt oriented x 3. No focal deficits. Strength and sensation grossly intact. PSYCH: Normal mood, normal affect. SKIN: Warm, dry. Irregular 2 mm laceration noted to ulnar distal fifth digit. Limitations: no limitations Right Hand Wrist exam: Present: normal inspection, full ROM, tenderness, laceration. Absent: swelling, ecchymosis Neuro motor exam: Present: wrist extension intact, thumb opposition intact, thumb IP flexion intact, thumb adduction intact, fingers 2-5 abduction intact Neurosensory exam: Present: 2-point discrimination, radial nerve intact, ulnar nerve intact, median nerve intact Vascular: Present: normal capillary refill, radial pulse, brachial pulse, ulnar pulse. Absent: vascular compromise Course Vital Signs 12/14/16 15:54 Temperature 98.5 F Pulse Rate 97 Respiratory 20 Rate Blood Pressure 136/93 O2 Sat by Pulse 99 Oximetry Procedures - Laceration Laceration #1 Consent Obtained: verbal consent Time Out Performed: No Indication: laceration Site: hand (Distal phalanx of fifth digit) Size (cm): 3 Description: irregular, clean Depth: simple, single layer Anesthetic Used: lidocaine 1% Anesthesia Technique: local infiltration Amount (mls): 2 Pre-repair: wound explored, irrigated extensively, deep structures intact Type of Sutures: nylon Size of Sutures: 5-0 Number of Sutures: 5 Technique: simple, interrupted Patient Tolerated Procedure: well, no complications Medical Decision Making - Medical Decision Making Laceration to right fifth digit. X-ray negative for foreign body. Patient tolerated laceration repair well. Discharge instructions and return parameters reviewed. Patient agrees with treatment plan. - Radiology Data Radiology results: report reviewed X-ray right finger: No evidence of fracture or dislocation. No radiopaque foreign body. As read by radiologist Dr. Collado. Disposition Clinical Impression: Laceration Disposition: HOME SELF-CARE Condition: Good Instructions: Care For Your Stitches (ED), Finger Laceration (ED) Additional Instructions: Postop wound care: Keep wound dry and clean for 24 hours; if dressing accidentally becomes wet, change dressing immediately. Gently clean the edges of the wound daily with a cotton swab saturated with peroxide to remove crust. Return immediately if signs of infection occur such as redness or red streaks progressing up and extremity, increasing pain, swelling, or fevers. Please return for suture removal in 7-9 days or sooner if complications. Please return to the emergency department if symptoms do not improve or get worse. Referrals: Bernie Groves MD [Primary Care Provider] - 1-2 days Time of Disposition: 17:07
--- NOTE | 2016-12-14 16:42 | XR ---
EXAMINATION TYPE: XR finger RT DATE OF EXAM: 12/14/2016 4:37 PM COMPARISON: NONE HISTORY: Laceration from glass to the middle phalanx of the fifth digit. TECHNIQUE: 3 radiographic views of the fifth digit were obtained. FINDINGS: There is no evidence of fracture or dislocation. Osseous mineralization is unremarkable. Mi ld soft tissue swelling is seen of the fifth digit at the proximal interphalangeal joint. The known l aceration is not radiographically evident. There is no radiopaque foreign body appreciated. IMPRESSION: No radiopaque foreign body. No fracture or dislocation.
== END 2016-12-14 17:18 | disposition home or self-care (01) ==
LOC: EC 15:50
DX: S61.216A Laceration without foreign body of right little finger without damage to nail, initial encounter (principal); F32.9 Major depressive disorder, single episode, unspecified; F17.200 Nicotine dependence, unspecified, uncomplicated; Z88.5 Allergy status to narcotic agent; Z85.830 Personal history of malignant neoplasm of bone; Z79.899 Other long term (current) drug therapy; W25.XXXA Contact with sharp glass, initial encounter; Y92.511 Restaurant or cafe as the place of occurrence of the external cause
CPT/HCPCS: 12002; 99283

== ENCOUNTER 2016-12-26 01:12 | Emergency (ER) | payer OTHER ==
[2016-12-26 01:19] VITALS: RESP 16; TEMP 98.5
[2016-12-26] MEDS ORDERED: KETOROLAC 30 MG/ML 1 ML VIAL IVP STA (01:31)
[2016-12-26] MEDS ORDERED: ONDANSETRON 4 MG/2 ML VIAL IVP STA (01:31)
[2016-12-26] MEDS ORDERED: SODIUM CHLORIDE 0.9% 1,000 ML IV STA (01:31)
[2016-12-26 02:20] LABS: ALT 36 U/L (21-72); AST 26 U/L (17-59); Alkaline Phosphatase 59 U/L (38-126); Amylase 63 U/L (30-110); Anion Gap 11 mmol/L; Appearance,Urine Clear (Clear); Bilirubin,Urine Negative (Negative); Blood Urea Nitrogen 10 mg/dL (9-20); Calcium 9.1 mg/dL (8.4-10.2); Carbon Dioxide 25 mmol/L (22-30); Chloride 105 mmol/L (98-107); Glucose 99 mg/dL (74-99); Glucose,Urine (UA) Negative (Negative); Ketones,Urine Trace (Negative); Leukocyte Esterase,Urine Negative (Negative); Mucus,Urine Few /hpf; Nitrite,Urine Negative (Negative); Non-African American GFR(MDRD) >60 (>60 ml/min/1.73 sqM); PH, Urine 5.5 (5.0-8.0); Particle Count 5028; Potassium 3.3 mmol/L (3.5-5.1); Protein,Urine 1+ (Negative); RBC,Urine 1 /hpf (0-5); Sodium 141 mmol/L (137-145); Specific Gravity,Urine 1.024 (1.001-1.035); Squamous Epithelial Cell,Urine <1 /hpf (0-4); Total Bilirubin 0.4 mg/dL (0.2-1.3); Total Protein 6.9 g/dL (6.3-8.2); UA Billing (MACRO vs. MICRO) MICRO; WBC,Urine 1 /hpf (0-5)
--- NOTE | 2016-12-26 02:36 | XR ---
EXAM: XR Abdomen, 1 View CLINICAL HISTORY: Reason: abdominal pain TECHNIQUE: Frontal upright views of the abdomen/pelvis. COMPARISON: 10/05/16 FINDINGS: Gastrointestinal tract: Stomach now appears somewhat distended, with air-fluid level in the fundus and debris present within. There is also now an air-fluid level in the right upper quadrant, most likely within duodenum. Otherwise, there is a relative paucity of small bowel gas. There are scattered air fluid levels present within nondilated colon. Bones/joints: Mild rightward curvature of the spine is stable as is bony deformity of the left iliac wing. IMPRESSION: Nonspecific findings that may be on the basis of a generalized ileus with air and fluid-filled distended stomach, air fluid level in the duodenum and within nondilated colon. Possibility of ongoing intestinal obstruction is not entirely excluded however. The findings could be correlated and followed clinically to guide further imaging follow-up if clinically indicated.
[2016-12-26 02:42] LABS: Basophils # (A) 0.1 k/uL (0-0.2); Basophils % (A) 1 %; CH 31.2; CHCM 34.6; Eosinophils # (A) 0.1 k/uL (0-0.7); Eosinophils % (A) 1 %; HCT 42.6 % (39.0-53.0); HDW 2.63; HGB 14.6 gm/dL (13.0-17.5); Luc # (Auto) 0.28; Luc % (Auto) 4; Lymphocytes # (A) 2.5 k/uL (1.0-4.8); Lymphocytes % (A) 31 %; MCH 31.1 pg (25.0-35.0); MCHC 34.3 g/dL (31.0-37.0); MCV 90.7 fL (80.0-100.0); Mean Platelet Volume 8.2; Monocytes # (A) 0.6 k/uL (0-1.0); Monocytes % (A) 7 %; Neutrophils # (A) 4.4 k/uL (1.3-7.7); Neutrophils % (A) 56 %; RBC 4.69 m/uL (4.30-5.90); RDW 12.8 % (11.5-15.5); WBC 7.8 k/uL (3.8-10.6); WBC (Perox) 7.88
[2016-12-26] MEDS ORDERED: MORPHINE SULFATE 2 MG/ML SYRINGE IVP ONE (03:16)
[2016-12-26] MEDS ORDERED: DICYCLOMINE 10 MG/ML 2 ML AMP IM STA (03:16)
--- NOTE | 2016-12-26 03:20 | ED ---
Abdominal Pain HPI - General Chief Complaint: Abdominal Pain Stated Complaint: Abd Pain Time Seen by Provider: 12/26/16 01:20 Source: patient, RN notes reviewed, old records reviewed Mode of arrival: ambulatory Limitations: no limitations - History of Present Illness Initial Comments: This is a 31-year-old male with chief complaint of abdominal pain, vomiting and diarrhea for the past week. Patient reports that he initially started with the abdominal pain on Thursday. He states is intermittent. He states that had multiple episodes of vomiting earlier in the week. He states it somewhat subsided. Then yesterday he had some diarrhea. Patient reports that he called off of work today. He states that he needs a note for work. Denies any fever or chills. Patient reports that the pain is mainly in the right upper quadrant. He does have a scheduled appointment with GI specialist next week. Denies any blood in his stool or vomit. Denies any chest pain, shortness of breath, nausea, dizziness, headache, upper a story symptoms. Denies any peripheral paresthesias or back pain. - Related Data Home Medications Medication Instructions Recorded Confirmed Gabapentin 800 mg PO TID PRN 06/25/16 12/08/16 Sertraline HCl [Zoloft] 50 mg PO HS 12/08/16 12/08/16 Previous Rx's Medication Instructions Recorded Dicyclomine [Bentyl] 20 mg PO QID PRN #16 tablet 12/08/16 HYDROcodone/APAP 5-325MG [[place] 1 tab PO Q6HR PRN #12 tab 12/08/16 5-325] Ibuprofen [Motrin] 800 mg PO Q8HR PRN #21 tab 12/08/16 Ondansetron Odt [Zofran Odt] 4 mg PO Q8HR PRN #12 tab 12/08/16 Loperamide HCl [Loperamide] 2 mg PO DAILY #6 capsule 12/26/16 Ondansetron Odt [Zofran Odt] 4 mg PO Q8HR PRN #10 tab 12/26/16 traMADol HCl [Ultram] 50 mg PO Q6H PRN #10 tab 12/26/16 Allergies Allergy/AdvReac Type Severity Reaction Status Date / Time codeine Allergy Rash/Hives/ Verified 12/26/16 01:19 Itching Review of Systems ROS Statement: Those systems with pertinent positive or pertinent negative responses have been documented in the HPI. ROS Other: All systems not noted in ROS Statement are negative. 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 History of Any Multi-Drug Resistant Organisms: None Reported Past Surgical History: Joint Replacement, Orthopedic Surgery Additional Past Surgical History / Comment(s): Left jaw surgery with plate. Past Psychological History: Anxiety, Depression Smoking Status: Current every day smoker Past Alcohol Use History: None Reported Past Drug Use History: None Reported General Exam - General Exam Comments Initial Comments: This is a well-appearing 31-year-old male. No distress. Limitations: no limitations General appearance: alert, in no apparent distress Head exam: Present: atraumatic, normocephalic, normal inspection Eye exam: Present: normal appearance, PERRL, EOMI. Absent: scleral icterus, conjunctival injection, periorbital swelling ENT exam: Present: normal exam, mucous membranes moist Neck exam: Present: normal inspection. Absent: tenderness, meningismus, lymphadenopathy Respiratory exam: Present: normal lung sounds bilaterally. Absent: respiratory distress, wheezes, rales, rhonchi, stridor Cardiovascular Exam: Present: regular rate, normal rhythm, normal heart sounds. Absent: systolic murmur, diastolic murmur, rubs, gallop, clicks GI/Abdominal exam: Present: soft, tenderness (Mild right upper quadrant tenderness.), normal bowel sounds. Absent: distended, guarding, rebound, rigid Extremities exam: Present: normal inspection, full ROM, normal capillary refill. Absent: tenderness, pedal edema, joint swelling, calf tenderness Back exam: Present: normal inspection Neurological exam: Present: alert, oriented X3, CN II-XII intact Psychiatric exam: Present: normal affect, normal mood Skin exam: Present: warm, dry, intact, normal color. Absent: rash Course Vital Signs 12/26/16 12/26/16 01:15 04:04 Temperature 98.5 F Pulse Rate 84 66 Respiratory 16 16 Rate Blood Pressure 130/71 126/69 O2 Sat by Pulse 100 100 Oximetry Medical Decision Making - Medical Decision Making Is a 31-year-old male well-known to the emergency department with chief complaint of right upper quadrant abdominal pain, nausea and vomiting earlier this week. Patient did have one episode diarrhea history. He called off from work and stated he needed a workup. IV fluids and labs are obtained. Labs are normal. Abdominal x-ray is normal. Patient does have a scheduled appointment to has missed next week. Discussed that I'll write him for work and he can have medication for his diarrhea and vomiting. Patient still concerned about pain medication. For a few tramadol for pain. Patient agrees to treatment plan will comply. Return parameters were discussed. - Lab Data Result diagrams: 12/26/16 01:50 12/26/16 01:50 Lab Results 12/26/16 12/26/16 12/26/16 Range/Units 01:50 01:50 01:50 WBC 7.8 (3.8-10.6) k/uL RBC 4.69 (4.30-5.90) m/uL Hgb 14.6 (13.0-17.5) gm/dL Hct 42.6 (39.0-53.0) % MCV 90.7 (80.0-100.0) fL MCH 31.1 (25.0-35.0) pg MCHC 34.3 (31.0-37.0) g/dL RDW 12.8 (11.5-15.5) % Plt Count 153 (150-450) k/uL Neutrophils % 56 % Lymphocytes % 31 % Monocytes % 7 % Eosinophils % 1 % Basophils % 1 % Neutrophils # 4.4 (1.3-7.7) k/uL Lymphocytes # 2.5 (1.0-4.8) k/uL Monocytes # 0.6 (0-1.0) k/uL Eosinophils # 0.1 (0-0.7) k/uL Basophils # 0.1 (0-0.2) k/uL Sodium 141 (137-145) mmol/L Potassium 3.3 L (3.5-5.1) mmol/L Chloride 105 (98-107) mmol/L Carbon Dioxide 25 (22-30) mmol/L Anion Gap 11 mmol/L BUN 10 (9-20) mg/dL Creatinine 0.90 (0.66-1.25) mg/dL Est GFR (MDRD) Af Amer >60 (>60 ml/min/1.73 sqM) Est GFR (MDRD) Non-Af >60 (>60 ml/min/1.73 sqM) Glucose 99 (74-99) mg/dL Calcium 9.1 (8.4-10.2) mg/dL Total Bilirubin 0.4 (0.2-1.3) mg/dL AST 26 (17-59) U/L ALT 36 (21-72) U/L Alkaline Phosphatase 59 (38-126) U/L Total Protein 6.9 (6.3-8.2) g/dL Albumin 4.4 (3.5-5.0) g/dL Amylase 63 (30-110) U/L Lipase 115 (23-300) U/L Urine Color Yellow Urine Appearance Clear (Clear) Urine pH 5.5 (5.0-8.0) Ur Specific [place] 1.024 (1.001-1.035) Urine Protein 1+ H (Negative) Urine Glucose (UA) Negative (Negative) Urine Ketones Trace H (Negative) Urine Blood Negative (Negative) Urine Nitrite Negative (Negative) Urine Bilirubin Negative (Negative) Urine Urobilinogen 2.0 (<2.0) mg/dL Ur Leukocyte Esterase Negative (Negative) Urine RBC 1 (0-5) /hpf Urine WBC 1 (0-5) /hpf Ur Squamous Epith Cells <1 (0-4) /hpf Hyaline Casts 14 H (0-2) /lpf Urine Mucus Few H (None) /hpf - Radiology Data Radiology results: report reviewed Nonspecific findings may be on the basis of generalized ileus with air air- fluid filled stented stomach. Air-fluid level in the duodenum and nondilated colon. Possibility of ongoing intestinal obstruction is not excluded. Findings could be correlated and followed up clinically to guide further imaging follow-up if clinically indicated. Disposition Clinical Impression: Gastroenteritis Disposition: HOME SELF-CARE Condition: Good Instructions: Gastroenteritis (ED) Additional Instructions: Patient to rest, increase fluids. Drink Gatorade or other fluids with electrolytes. Patient should follow-up with GI specialist as directed within the next week. Return to the emergency department if any alarming signs or symptoms occur. Take diarrhea medication and nausea medication as needed. Prescriptions: Loperamide HCl [Loperamide] 2 mg PO DAILY #6 capsule Ondansetron Odt [Zofran Odt] 4 mg PO Q8HR PRN #10 tab PRN Reason: Nausea traMADol HCl [Ultram] 50 mg PO Q6H PRN #10 tab PRN Reason: Pain Referrals: Bernie Groves MD [Primary Care Provider] - 1-2 days Time of Disposition: 03:17
[2016-12-26 04:05] VITALS: BP 126/69; PULSE 66
== END 2016-12-26 04:04 | disposition home or self-care (01) ==
LOC: EC 01:12
DX: K52.9 Noninfective gastroenteritis and colitis, unspecified (principal); R11.2 Nausea with vomiting, unspecified; F32.9 Major depressive disorder, single episode, unspecified; F41.9 Anxiety disorder, unspecified; F17.200 Nicotine dependence, unspecified, uncomplicated; Z79.899 Other long term (current) drug therapy; Z88.5 Allergy status to narcotic agent; Z85.830 Personal history of malignant neoplasm of bone; Z98.890 Other specified postprocedural states
CPT/HCPCS: 36415; 80053; 82150; 83690; 85025; 81001; 74000; 99284; 96374; 96375 ×2; 96361; 96372; J0500; J2405; J1885; J2270

== ENCOUNTER 2017-01-05 16:34 | Emergency (ER) | payer OTHER ==
[2017-01-05] MEDS ORDERED: SODIUM CHLORIDE 0.9% 1,000 ML IV STA (17:06)
[2017-01-05] MEDS ORDERED: KETOROLAC 30 MG/ML 1 ML VIAL IVP STA (17:06)
[2017-01-05] MEDS ORDERED: ONDANSETRON 4 MG/2 ML VIAL IVP STA (17:06)
--- NOTE | 2017-01-05 17:19 | ED ---
Abdominal Pain HPI - General Chief Complaint: Abdominal Pain Stated Complaint: Abd Pain Time Seen by Provider: 01/05/17 17:02 Source: patient, RN notes reviewed, old records reviewed Mode of arrival: ambulatory - History of Present Illness Initial Comments: This is a 31-year-old male presents emergency department with recurrent right upper quadrant pain. Patient was evaluated 10 days ago and lab work was obtained negative for any acute process. Patient reports that he has been down with his right upper quadrant pain for the past few months. He states that it will come and go for a few days. He states is been worse the past 3 days. He states he is unable to eat anything. Denies any nausea or vomiting. Denies any fever or chills, diarrhea or blood in his stools. Patient states that he is supposed to see a GI specialist on the . He states he feels like he cannot wait that long. Patient reports that he is supposed to have a HIDA scan done. Patient reports that he did have an ultrasound approximately 9 months ago which was negative for any stones that time. - Related Data Home Medications Medication Instructions Recorded Confirmed Gabapentin 800 mg PO TID 06/25/16 01/05/17 Sertraline [Zoloft] 100 mg PO HS 01/05/17 01/05/17 Previous Rx's Medication Instructions Recorded Famotidine [Pepcid] 20 mg PO BID #20 tablet 01/05/17 Allergies Allergy/AdvReac Type Severity Reaction Status Date / Time codeine Allergy Rash/Hives/ Verified 01/05/17 17:36 Itching Review of Systems ROS Statement: Those systems with pertinent positive or pertinent negative responses have been documented in the HPI. ROS Other: All systems not noted in ROS Statement are negative. Constitutional: Reports: chills. Denies: fever Eyes: Denies: eye pain ENT: Denies: ear pain, throat pain Respiratory: Denies: cough, dyspnea Cardiovascular: Denies: chest pain, palpitations Endocrine: Denies: fatigue Gastrointestinal: Reports: abdominal pain. 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 History of Any Multi-Drug Resistant Organisms: None Reported Past Surgical History: Joint Replacement, Orthopedic Surgery Additional Past Surgical History / Comment(s): Left jaw surgery with plate. Past Psychological History: Anxiety, Depression Smoking Status: Current every day smoker Past Alcohol Use History: None Reported Past Drug Use History: None Reported General Exam - General Exam Comments Initial Comments: This is a 31-year-old male, patient is resting in bed. He does not appear to be in any acute discomfort. General appearance: alert, in no apparent distress Head exam: Present: atraumatic, normocephalic, normal inspection Eye exam: Present: normal appearance, PERRL, EOMI. Absent: scleral icterus, conjunctival injection, periorbital swelling ENT exam: Present: normal exam, mucous membranes moist Neck exam: Present: normal inspection. Absent: tenderness, meningismus, lymphadenopathy Respiratory exam: Present: normal lung sounds bilaterally. Absent: respiratory distress, wheezes, rales, rhonchi, stridor Cardiovascular Exam: Present: regular rate, normal rhythm, normal heart sounds. Absent: systolic murmur, diastolic murmur, rubs, gallop, clicks GI/Abdominal exam: Present: soft, tenderness (Right upper quadrant and epigastric tenderness.), normal bowel sounds. Absent: distended, guarding, rebound, rigid Extremities exam: Present: normal inspection, full ROM, normal capillary refill. Absent: tenderness, pedal edema, joint swelling, calf tenderness Back exam: Present: normal inspection Neurological exam: Present: alert, oriented X3, CN II-XII intact Psychiatric exam: Present: normal affect, normal mood Skin exam: Present: warm, dry, intact, normal color. Absent: rash Course Vital Signs 01/05/17 16:51 Temperature 99.4 F Pulse Rate 96 Respiratory 18 Rate Blood Pressure 136/88 O2 Sat by Pulse 100 Oximetry Medical Decision Making - Medical Decision Making This is a 31-year-old male on into the emergency department with chief complaint of right upper quadrant abdominal pain. Patient denies any nausea or vomiting or diarrhea. He denies any blood in stools. No fever at this time. Patient is tender in the right upper quadrant. And slightly in the epigastric region. All lab work was reviewed and negative. Patient was given IV Zofran and Toradol. Patient is needed. Over all his labs are negative for any acute process. Right upper quadrant ultrasound shows no evidence of choledocholithiasis or cholecystitis. Right kidney was visualized and normal no masses were seen. Common bile duct was 3 mm and within normal limits. Discussed the findings with the patient. He does have an appointment with GI specialist next week. Discussed that I'll discharge the patient with Pepcid. Patient agrees to treatment plan will comply. Return parameters were discussed. - Lab Data Result diagrams: 01/05/17 17:01/05/17 17: Lab Results 01/05/17 01/05/17 01/05/17 Range/Units 17:15 17:15 17:15 WBC 8.3 (3.8-10.6) k/uL RBC 5.27 (4.30-5.90) m/uL Hgb 16.3 (13.0-17.5) gm/dL Hct 49.3 (39.0-53.0) % MCV 93.5 (80.0-100.0) fL MCH 30.9 (25.0-35.0) pg MCHC 33.0 (31.0-37.0) g/dL RDW 12.9 (11.5-15.5) % Plt Count 219 (150-450) k/uL Neutrophils % 69 % Lymphocytes % 22 % Monocytes % 5 % Eosinophils % 0 % Basophils % 0 % Neutrophils # 5.7 (1.3-7.7) k/uL Lymphocytes # 1.8 (1.0-4.8) k/uL Monocytes # 0.4 (0-1.0) k/uL Eosinophils # 0.0 (0-0.7) k/uL Basophils # 0.0 (0-0.2) k/uL Sodium 142 (137-145) mmol/L Potassium 4.1 (3.5-5.1) mmol/L Chloride 107 (98-107) mmol/L Carbon Dioxide 26 (22-30) mmol/L Anion Gap 9 mmol/L BUN 12 (9-20) mg/dL Creatinine 0.75 (0.66-1.25) mg/dL Est GFR (MDRD) Af Amer >60 (>60 ml/min/1.73 sqM) Est GFR (MDRD) Non-Af >60 (>60 ml/min/1.73 sqM) Glucose 105 H (74-99) mg/dL Plasma Lactic Acid Naif 1.5 (0.7-2.0) mmol/L Calcium 9.9 (8.4-10.2) mg/dL Total Bilirubin 0.7 (0.2-1.3) mg/dL AST 30 (17-59) U/L ALT 31 (21-72) U/L Alkaline Phosphatase 64 (38-126) U/L Total Protein 7.6 (6.3-8.2) g/dL Albumin 4.8 (3.5-5.0) g/dL Amylase 70 (30-110) U/L Lipase 71 (23-300) U/L Urine Color Urine Appearance (Clear) Urine pH (5.0-8.0) Ur Specific [place] (1.001-1.035) Urine Protein (Negative) Urine Glucose (UA) (Negative) Urine Ketones (Negative) Urine Blood (Negative) Urine Nitrite (Negative) Urine Bilirubin (Negative) Urine Urobilinogen (<2.0) mg/dL Ur Leukocyte Esterase (Negative) 01/05/17 Range/Units 17:15 WBC (3.8-10.6) k/uL RBC (4.30-5.90) m/uL Hgb (13.0-17.5) gm/dL Hct (39.0-53.0) % MCV (80.0-100.0) fL MCH (25.0-35.0) pg MCHC (31.0-37.0) g/dL RDW (11.5-15.5) % Plt Count (150-450) k/uL Neutrophils % % Lymphocytes % % Monocytes % % Eosinophils % % Basophils % % Neutrophils # (1.3-7.7) k/uL Lymphocytes # (1.0-4.8) k/uL Monocytes # (0-1.0) k/uL Eosinophils # (0-0.7) k/uL Basophils # (0-0.2) k/uL Sodium (137-145) mmol/L Potassium (3.5-5.1) mmol/L Chloride (98-107) mmol/L Carbon Dioxide (22-30) mmol/L Anion Gap mmol/L BUN (9-20) mg/dL Creatinine (0.66-1.25) mg/dL Est GFR (MDRD) Af Amer (>60 ml/min/1.73 sqM) Est GFR (MDRD) Non-Af (>60 ml/min/1.73 sqM) Glucose (74-99) mg/dL Plasma Lactic Acid Naif (0.7-2.0) mmol/L Calcium (8.4-10.2) mg/dL Total Bilirubin (0.2-1.3) mg/dL AST (17-59) U/L ALT (21-72) U/L Alkaline Phosphatase (38-126) U/L Total Protein (6.3-8.2) g/dL Albumin (3.5-5.0) g/dL Amylase (30-110) U/L Lipase (23-300) U/L Urine Color Light Yellow Urine Appearance Clear (Clear) Urine pH 7.5 (5.0-8.0) Ur Specific [place] 1.008 (1.001-1.035) Urine Protein Negative (Negative) Urine Glucose (UA) Negative (Negative) Urine Ketones Negative (Negative) Urine Blood Negative (Negative) Urine Nitrite Negative (Negative) Urine Bilirubin Negative (Negative) Urine Urobilinogen <2.0 (<2.0) mg/dL Ur Leukocyte Esterase Negative (Negative) - Radiology Data Radiology results: report reviewed Right upper quadrant ultrasound is negative for Colace. No evidence of Ortega sign. Right kidney within normal limits. No hydronephrosis or masses seen. Disposition Clinical Impression: Col[place] RUQ abdominal pain Disposition: HOME SELF-CARE Condition: Good Instructions: Abdominal Pain (ED) Additional Instructions: Patient advised to rest, increase fluids. Take prescriptions as directed. 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 Return to emergency Department family alarming signs or symptoms occur. Prescriptions: Famotidine [Pepcid] 20 mg PO BID #20 tablet Time of Disposition: 18:40
[2017-01-05 17:31] LABS: Basophils % (A) 0 %; CH 30.9; CHCM 33.2; Eosinophils % (A) 0 %; HCT 49.3 % (39.0-53.0); HDW 2.44; HGB 16.3 gm/dL (13.0-17.5); Luc # (Auto) 0.21; Luc % (Auto) 3; Lymphocytes # (A) 1.8 k/uL (1.0-4.8); Lymphocytes % (A) 22 %; MCH 30.9 pg (25.0-35.0); MCV 93.5 fL (80.0-100.0); Mean Platelet Volume 8.3; Monocytes # (A) 0.4 k/uL (0-1.0); Monocytes % (A) 5 %; Neutrophils # (A) 5.7 k/uL (1.3-7.7); Neutrophils % (A) 69 %; RBC 5.27 m/uL (4.30-5.90); RDW 12.9 % (11.5-15.5); WBC 8.3 k/uL (3.8-10.6)
[2017-01-05 17:34] LABS: Appearance,Urine Clear (Clear); Bilirubin,Urine Negative (Negative); Glucose,Urine (UA) Negative (Negative); Ketones,Urine Negative (Negative); Leukocyte Esterase,Urine Negative (Negative); Nitrite,Urine Negative (Negative); PH, Urine 7.5 (5.0-8.0); Protein,Urine Negative (Negative); Specific Gravity,Urine 1.008 (1.001-1.035); UA Billing (MACRO vs. MICRO) CHEM; Urobilinogen,Urine <2.0 mg/dL (<2.0)
[2017-01-05 17:39] LABS: ALT 31 U/L (21-72); AST 30 U/L (17-59); Alkaline Phosphatase 64 U/L (38-126); Amylase 70 U/L (30-110); Anion Gap 9 mmol/L; Blood Urea Nitrogen 12 mg/dL (9-20); Calcium 9.9 mg/dL (8.4-10.2); Carbon Dioxide 26 mmol/L (22-30); Chloride 107 mmol/L (98-107); Glucose 105 mg/dL (74-99); Non-African American GFR(MDRD) >60 (>60 ml/min/1.73 sqM); Potassium 4.1 mmol/L (3.5-5.1); Sodium 142 mmol/L (137-145); Total Bilirubin 0.7 mg/dL (0.2-1.3); Total Protein 7.6 g/dL (6.3-8.2)
--- NOTE | 2017-01-05 18:33 | US ---
EXAMINATION TYPE: US gallbladder DATE OF EXAM: 01/05/2017 5:58 PM COMPARISON: US CLINICAL HISTORY: Pain. RUQ pain EXAM MEASUREMENTS: Liver Length: 16.5 cm Gallbladder Wall: 0.2 cm CBD: 0.3 cm Right Kidney: 11.4 x 4.6 x 5.5 cm Pancreas: wnl Liver: wnl Gallbladder: No stones seen. Evidence for sonographic Ortega's sign: No CBD: wnl 3 mm. Right Kidney: No hydronephrosis or masses seen IMPRESSION: No sonographic evidence of cholecystitis.
[2017-01-05 18:55] VITALS: BP 121/73; PULSE 70; RESP 16; TEMP 98.3
== END 2017-01-05 18:54 | disposition home or self-care (01) ==
LOC: EC 16:34
DX: R10.11 Right upper quadrant pain (principal); F32.9 Major depressive disorder, single episode, unspecified; F17.200 Nicotine dependence, unspecified, uncomplicated; Z85.830 Personal history of malignant neoplasm of bone; Z88.5 Allergy status to narcotic agent; Z79.899 Other long term (current) drug therapy
CPT/HCPCS: 99284; 96374; 96375; 96361; 36415; 80053; 82150; 83605; 83690; 85025; 81003; 76705; J2405; J1885

== ENCOUNTER 2017-04-24 01:20 | Emergency (ER) | payer OTHER ==
[2017-04-24 01:25] VITALS: BP 137/82; PULSE 80; RESP 18; TEMP 99.2
[2017-04-24] MEDS ORDERED: HYDROcodone/APAP 7.5-325MG 1 EACH TAB PO ONE (01:46)
--- NOTE | 2017-04-24 01:50 | ED ---
Extremity Problem HPI - General Chief complaint: Extremity Problem,Nontraumatic Stated complaint: Pain/Anxiety Time Seen by Provider: 04/24/17 01:35 Source: patient, RN notes reviewed Mode of arrival: ambulatory Limitations: no limitations - History of Present Illness Initial comments: This a 31-year-old male presents emergency Department chief complaint of chronic pain. Patient states that he was on [place] 7.53 times a day for several years. Patient states that he is currently switching from Dr. Gomez to Dr. Elise for pain management. Patient states that he had osteosarcoma. Patient states that he said multiple bone grafting and full removal. Patient states that he ran out on the has been trying to deal with it was states he cannot tolerate the pain anymore. Patient denies any withdrawal symptoms at this time. Denies any suicidal or homicidal thoughts. Denies any illicit drug abuse. - Related Data Home Medications Medication Instructions Recorded Confirmed Gabapentin 800 mg PO TID 06/25/16 04/24/17 Sertraline [Zoloft] 100 mg PO HS 01/05/17 04/24/17 Previous Rx's Medication Instructions Recorded HYDROcodone/APAP 7.5-325MG [[place] 1 tab PO Q6HR PRN #20 tab 04/24/17 7.5-325] Allergies Allergy/AdvReac Type Severity Reaction Status Date / Time codeine Allergy Rash/Hives/ Verified 01/05/17 17:36 Itching Review of Systems ROS Statement: Those systems with pertinent positive or pertinent negative responses have been documented in the HPI. ROS Other: All systems not noted in ROS Statement are negative. 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 History of Any Multi-Drug Resistant Organisms: None Reported Past Surgical History: Joint Replacement, Orthopedic Surgery Additional Past Surgical History / Comment(s): Left jaw surgery with plate. Past Psychological History: Anxiety, Depression Smoking Status: Current every day smoker Past Alcohol Use History: None Reported Past Drug Use History: None Reported General Exam Limitations: no limitations General appearance: alert, in no apparent distress Head exam: Present: atraumatic, normocephalic, normal inspection Respiratory exam: Present: normal lung sounds bilaterally. Absent: respiratory distress, wheezes, rales, rhonchi, stridor Cardiovascular Exam: Present: regular rate, normal rhythm, normal heart sounds. Absent: systolic murmur, diastolic murmur, rubs, gallop, clicks Extremities exam: Present: other (Large deformity noted to the left humeral, shoulder region scars noted to the left lower leg and left hip) Course Vital Signs 04/24/17 01:22 Temperature 99.2 F Pulse Rate 80 Respiratory 18 Rate Blood Pressure 137/82 O2 Sat by Pulse 99 Oximetry Medical Decision Making - Medical Decision Making 31-year-old male presented for chronic pain. Patient's maps does not reveal any doctor shopping he's had prescriptions filled by Dr. Fischer last 3 months which are consistent. Patient will be given a short course of pain medication he is advised that we do not do long-term pain management from the ER that he needs to make these pills last until his appointment. Patient agrees to plan. Disposition Clinical Impression: Chronic pain Disposition: HOME SELF-CARE Condition: Stable Instructions: Chronic Pain (ED) Additional Instructions: Please return to the Emergency Department if symptoms worsen or any other concerns. Prescriptions: HYDROcodone/APAP 7.5-325MG [[place] 7.5-325] 1 tab PO Q6HR PRN #20 tab PRN Reason: Pain Referrals: Bernie Groves MD [Primary Care Provider] - 1-2 days Time of Disposition: 01:50
== END 2017-04-24 01:58 | disposition home or self-care (01) ==
LOC: EC 01:20
DX: G89.29 Other chronic pain (principal); M21.822 Other specified acquired deformities of left upper arm; M79.602 Pain in left arm; M79.605 Pain in left leg; F32.9 Major depressive disorder, single episode, unspecified; F41.9 Anxiety disorder, unspecified; G62.9 Polyneuropathy, unspecified; F17.200 Nicotine dependence, unspecified, uncomplicated; Z79.899 Other long term (current) drug therapy; Z88.5 Allergy status to narcotic agent; Z85.830 Personal history of malignant neoplasm of bone; Z98.890 Other specified postprocedural states
CPT/HCPCS: 99283

== ENCOUNTER 2017-04-30 16:48 | Emergency (ER) | payer OTHER ==
[2017-04-30 17:04] VITALS: BP 174/99; PULSE 97; RESP 18; TEMP 97.5
--- NOTE | 2017-04-30 17:22 | ED ---
Recheck HPI - General Chief Complaint: Recheck/Abnormal Lab/Rx Stated Complaint: chronic pain in left arm and left leg Time Seen by Provider: 04/30/17 17:08 Source: patient, RN notes reviewed Mode of arrival: ambulatory Limitations: no limitations - History of Present Illness Initial Comments: 31-year-old male presents for medication refill. 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 Patient scheduled see Dr. Elise in May. Patient states that he is to see Dr. Diego. Patient denies any new trauma. - Related Data Home Medications Medication Instructions Recorded Confirmed Gabapentin 800 mg PO TID 06/25/16 04/24/17 Sertraline [Zoloft] 100 mg PO HS 01/05/17 04/24/17 Previous Rx's Medication Instructions Recorded HYDROcodone/APAP 7.5-325MG [[place] 1 tab PO Q6HR PRN #20 tab 04/24/17 7.5-325] HYDROcodone/APAP 7.5-325MG [[place] 1 tab PO Q6HR PRN #20 tab 04/30/17 7.5-325] Allergies Allergy/AdvReac Type Severity Reaction Status Date / Time codeine Allergy Rash/Hives/ Verified 04/30/17 17:05 Itching Review of Systems ROS Statement: Those systems with pertinent positive or pertinent negative responses have been documented in the HPI. ROS Other: All systems not noted in ROS Statement are negative. 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 History of Any Multi-Drug Resistant Organisms: None Reported Past Surgical History: Joint Replacement, Orthopedic Surgery Additional Past Surgical History / Comment(s): Left jaw surgery with plate. Past Psychological History: Anxiety, Depression Smoking Status: Current every day smoker Past Alcohol Use History: None Reported Past Drug Use History: None Reported General Exam Limitations: no limitations General appearance: alert, in no apparent distress Neck exam: Present: normal inspection. Absent: tenderness, meningismus, lymphadenopathy Respiratory exam: Present: normal lung sounds bilaterally. Absent: respiratory distress, wheezes, rales, rhonchi, stridor Cardiovascular Exam: Present: regular rate, normal rhythm, normal heart sounds. Absent: systolic murmur, diastolic murmur, rubs, gallop, clicks Extremities exam: Present: other (Deformity noted to left shoulder, left hip and leg region) Course Vital Signs 04/30/17 17:01 Temperature 97.5 F L Pulse Rate 97 Respiratory 18 Rate Blood Pressure 174/99 O2 Sat by Pulse 100 Oximetry Medical Decision Making - Medical Decision Making 31-year-old male presented for medication refill. I did expand the patient that he'll receive a prescription now though he will not receive any further narcotics emergency department. He states he does understand this. I did explain that this is not place for chronic pain management. He does agree to this plan that he will not receive another prescription of [place] from the emergency department for his chronic pain. Disposition Clinical Impression: Chronic pain, Encounter for medication refill Disposition: HOME SELF-CARE Condition: Stable Instructions: Chronic Pain (ED) Additional Instructions: You must follow-up with pain management or primary care physician for further pain medications.Please return to the Emergency Department if symptoms worsen or any other concerns. Prescriptions: HYDROcodone/APAP 7.5-325MG [[place] 7.5-325] 1 tab PO Q6HR PRN #20 tab PRN Reason: Pain Referrals: Bernie Groves MD [Primary Care Provider] - 1-2 days Time of Disposition: 17:22
== END 2017-04-30 17:29 | disposition home or self-care (01) ==
LOC: EC 16:48
DX: G89.3 Neoplasm related pain (acute) (chronic) (principal); Z76.0 Encounter for issue of repeat prescription; M79.602 Pain in left arm; M79.605 Pain in left leg; G62.9 Polyneuropathy, unspecified; F41.9 Anxiety disorder, unspecified; F32.9 Major depressive disorder, single episode, unspecified; F17.200 Nicotine dependence, unspecified, uncomplicated; Z85.830 Personal history of malignant neoplasm of bone; Z98.890 Other specified postprocedural states; Z79.899 Other long term (current) drug therapy; Z88.5 Allergy status to narcotic agent
CPT/HCPCS: 99283

== ENCOUNTER 2017-05-01 14:20 | Emergency (ER) | payer OTHER ==
[2017-05-01 14:31] VITALS: BP 125/79; PULSE 82; RESP 20; TEMP 100.4
--- NOTE | 2017-05-01 15:08 | ED ---
Wound/Laceration HPI - General Chief Complaint: Wound/Laceration Stated Complaint: left mccall injury Time Seen by Provider: 05/01/17 14:37 Source: patient Mode of arrival: ambulatory Limitations: no limitations - History of Present Illness Initial Comments: Patient is a 31-year-old male who presents with a chief complaint of a laceration to his left anterior mccall. Patient was playing with his dog one hour ago when he hit his mccall on a coffee table. There is a 2 cm linear laceration on his anterior mccall. Patient states his last tetanus shot was 5 years ago. He has no other complaints at this time. Onset/Timin -: hour(s) Location: other Extremity Location: Left: Lower Leg Place: home Patient Tetanus UTD: Yes Context: accidental Associated Symptoms: pain Treatments Prior to Arrival: bandage - Related Data Home Medications Medication Instructions Recorded Confirmed Gabapentin 800 mg PO TID 06/25/16 05/01/17 Sertraline [Zoloft] 100 mg PO HS 01/05/17 05/01/17 HYDROcodone/APAP 7.5-325MG [[place] 1 tab PO TID 05/01/17 05/01/17 7.5-325] Allergies Allergy/AdvReac Type Severity Reaction Status Date / Time codeine Allergy Rash/Hives/ Verified 05/01/17 14:53 Itching Review of Systems ROS Statement: Those systems with pertinent positive or pertinent negative responses have been documented in the HPI. ROS Other: All systems not noted in ROS Statement are negative. 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 History of Any Multi-Drug Resistant Organisms: None Reported Past Surgical History: Joint Replacement, Orthopedic Surgery Additional Past Surgical History / Comment(s): Left jaw surgery with plate. Past Psychological History: Anxiety, Depression Smoking Status: Current every day smoker Past Alcohol Use History: None Reported Past Drug Use History: None Reported General Exam Limitations: no limitations General appearance: alert, in no apparent distress Head exam: Present: atraumatic, normocephalic Eye exam: Present: normal appearance Respiratory exam: Present: normal lung sounds bilaterally. Absent: respiratory distress, wheezes Cardiovascular Exam: Present: regular rate, normal rhythm GI/Abdominal exam: Present: soft. Absent: distended, tenderness Rectal exam: Present: deferred Extremities exam: Present: other (Patient is a 2 cm linear laceration to the anterior lower leg) Back exam: Present: normal inspection Neurological exam: Present: alert, altered Psychiatric exam: Present: normal affect Skin exam: Present: warm, dry, intact, other (See laceration description above) Course Vital Signs 05/01/17 14:29 Temperature 100.4 F H Pulse Rate 82 Respiratory 20 Rate Blood Pressure 125/79 O2 Sat by Pulse 99 Oximetry Procedures - Laceration Laceration #1 Consent Obtained: verbal consent Time Out Performed: Yes Indication: laceration Site: lower extremity Description: linear Depth: simple, single layer Sedation/Analgesia: none Anesthetic Used: lidocaine 1% Anesthesia Technique: local infiltration Pre-repair: wound explored, irrigated extensively Type of Sutures: nylon Size of Sutures: 4-0 Number of Sutures: 3 Technique: simple, interrupted Patient Tolerated Procedure: well, no complications Medical Decision Making - Medical Decision Making Patient presents with a laceration of the lower leg. Laceration was repaired as per the procedure note. Tetanus shot is up-to-date. Patient otherwise has no complaints. At this time he is stable for discharge, he is instructed to follow-up with primary care and to have his stitches removed in 7 days. He is further instructed to return to the emergency department if symptoms worsen or change in any way. Disposition Clinical Impression: Laceration Disposition: HOME SELF-CARE Condition: Good Instructions: Care For Your Stitches (ED) Referrals: Bernie Groves MD [Primary Care Provider] - 1-2 days
== END 2017-05-01 15:20 | disposition home or self-care (01) ==
LOC: EC 14:20
DX: S81.812A Laceration without foreign body, left lower leg, initial encounter (principal); F32.9 Major depressive disorder, single episode, unspecified; F41.9 Anxiety disorder, unspecified; F17.200 Nicotine dependence, unspecified, uncomplicated; Z98.890 Other specified postprocedural states; Z79.899 Other long term (current) drug therapy; Z88.5 Allergy status to narcotic agent; Z85.830 Personal history of malignant neoplasm of bone; W22.03XA Walked into furniture, initial encounter; Y93.89 Activity, other specified
CPT/HCPCS: 12001; 99282

== ENCOUNTER 2017-05-30 20:28 | Emergency (ER) | payer OTHER ==
[2017-05-30 20:39] VITALS: BP 132/95; PULSE 112; RESP 20; TEMP 98.9
--- NOTE | 2017-05-30 20:48 | ED ---
General Adult HPI - General Chief complaint: Recheck/Abnormal Lab/Rx Stated complaint: left side pain Time Seen by Provider: 05/30/17 20:40 Source: patient Mode of arrival: ambulatory Limitations: no limitations - History of Present Illness Initial comments: This is a 31-year-old male who presents to emergency department with request for medication refill of [place]. Patient states his prescription ran out and is unable to have it refilled until . He is prescribed [place] for chronic pain management. - Related Data Home Medications Medication Instructions Recorded Confirmed Gabapentin 800 mg PO TID 06/25/16 05/30/17 Sertraline [Zoloft] 100 mg PO HS 01/05/17 05/30/17 HYDROcodone/APAP 7.5-325MG [[place] 1 tab PO TID 05/01/17 05/30/17 7.5-325] Previous Rx's Medication Instructions Recorded Ibuprofen 600 mg PO Q6HR #30 tablet 05/30/17 Allergies Allergy/AdvReac Type Severity Reaction Status Date / Time codeine Allergy Rash/Hives/ Verified 05/30/17 20:39 Itching Review of Systems ROS Statement: Those systems with pertinent positive or pertinent negative responses have been documented in the HPI. ROS Other: All systems not noted in ROS Statement are negative. 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 History of Any Multi-Drug Resistant Organisms: None Reported Past Surgical History: Joint Replacement, Orthopedic Surgery Additional Past Surgical History / Comment(s): Left jaw surgery with plate. Past Psychological History: Anxiety, Depression Smoking Status: Current every day smoker Past Alcohol Use History: None Reported Past Drug Use History: None Reported General Exam - General Exam Comments Initial Comments: General: Awake and alert, well-developed; in no apparent distress. HEENT: Head atraumatic, normocephalic. Pupils are equal, round and reactive to light. Extraocular movements intact. Neck: Supple. Normal ROM. Cardiovascular: Regular rate and rhythm. No murmurs, rubs or gallops. Chest symmetrical. Respiratory: Lungs clear to auscultation bilaterally. No wheezes, rales or rhonchi. Normal respiratory effort with no use of accessory muscles. Skin: [place], warm and dry without rashes or lesions. Neurological: Alert and oriented x3. CN II-XII grossly intact. Speech is fluent and answers are appropriate. No focal neuro deficits. Psychiatric: Normal mood and affect. No overt signs of depression or anxiety noted. Limitations: no limitations Course Vital Signs 05/30/17 20:38 Temperature 98.9 F Pulse Rate 112 H Respiratory 20 Rate Blood Pressure 132/95 O2 Sat by Pulse 99 Oximetry Medical Decision Making - Medical Decision Making This case was discussed with attending physician, Dr. Long. I explained to the patient that the emergency department will not refill narcotics. Patient requests prescription for ibuprofen to hold him over until . Disposition Clinical Impression: Chronic pain Disposition: HOME SELF-CARE Condition: Good Additional Instructions: Please follow up with her primary care provider for pain management. Please return to the ED if any concerns arise. Prescriptions: Ibuprofen 600 mg PO Q6HR #30 tablet Referrals: Bernie Groves MD [Primary Care Provider] - 1-2 days Time of Disposition: 20:51
== END 2017-05-30 21:02 | disposition home or self-care (01) ==
LOC: EC 20:28
DX: G89.29 Other chronic pain (principal); Z76.0 Encounter for issue of repeat prescription; F32.9 Major depressive disorder, single episode, unspecified; F41.9 Anxiety disorder, unspecified; F17.200 Nicotine dependence, unspecified, uncomplicated; Z85.830 Personal history of malignant neoplasm of bone; Z79.899 Other long term (current) drug therapy; Z88.5 Allergy status to narcotic agent
CPT/HCPCS: 99283

== ENCOUNTER 2017-09-20 14:31 | Emergency (ER) | payer OTHER ==
[2017-09-20 14:41] VITALS: RESP 16
[2017-09-20] MEDS ORDERED: ONDANSETRON ODT 4 MG TAB PO STA (14:59)
--- NOTE | 2017-09-20 15:00 | ED ---
General Adult HPI - General Chief complaint: Nausea/Vomiting/Diarrhea Stated complaint: nausea/dizziness Time Seen by Provider: 09/20/17 14:53 Source: patient, family, RN notes reviewed Mode of arrival: ambulatory Limitations: no limitations - History of Present Illness Initial comments: Patient 31-year-old male who presents emergency room today with a chief complaint of symptoms of nausea and feeling lightheaded. He states symptoms started yesterday. States he does feel little better today. States that he was feeling nauseated earlier in the day had decreased appetite. States that appetites seems to be improving little since she's been here at the hospital. Patient admits to feeling dizzy lightheaded worse when he stands up. Patient denies any other complaints or symptoms. Denies any other sick contacts. Patient denies any recent fever, chills, shortness of breath, chest pain, back pain, abdominal pain, vomiting, numbness or tingling, dysuria or hematuria, constipation or diarrhea, headaches or visual changes, or any other complaints. - Related Data Home Medications Medication Instructions Recorded Confirmed Sertraline [Zoloft] 100 mg PO HS 01/05/17 09/20/17 Buprenorphine HCl/Naloxone HCl 1 each SL TID 09/20/17 09/20/17 [Suboxone 8 mg-2 mg Sl Film] Previous Rx's Medication Instructions Recorded Ondansetron Odt [Zofran ODT] 4 mg PO Q8HR PRN #20 tab 09/20/17 Allergies Allergy/AdvReac Type Severity Reaction Status Date / Time codeine Allergy Rash/Hives/ Verified 09/20/17 15:05 Itching Review of Systems ROS Statement: Those systems with pertinent positive or pertinent negative responses have been documented in the HPI. ROS Other: All systems not noted in ROS Statement are negative. 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 History of Any Multi-Drug Resistant Organisms: None Reported Past Surgical History: Joint Replacement, Orthopedic Surgery Additional Past Surgical History / Comment(s): Left jaw surgery with plate. Past Psychological History: Anxiety, Depression Smoking Status: Current every day smoker Past Alcohol Use History: None Reported Past Drug Use History: None Reported General Exam - General Exam Comments Initial Comments: General: The patient is awake and alert, in no distress, and does not appear acutely ill. Eye: Pupils are equal, round and reactive to light, extra-ocular movements are intact. No nystagmus. There is normal conjunctiva bilaterally. No signs of icterus. Ears, nose, mouth and throat: There are moist mucous membranes and no oral lesions. Neck: The neck is supple, there is no tenderness or JVD. Cardiovascular: There is a regular rate and rhythm. No murmur, rub or gallop is appreciated. Respiratory: Lungs are clear to auscultation, respirations are non-labored, breath sounds are equal. No wheezes, stridor, rales, or rhonchi. Gastrointestinal: Soft, non-distended, non-tender abdomen without masses or organomegaly noted. There is no rebound or guarding present. No CVA tenderness. Bowel sounds are unremarkable. Musculoskeletal: Normal ROM, no tenderness. Strength 5/5. Sensation intact. Pulses equal bilaterally 2+. Neurological: A&O x 3. CN II-XII intact, There are no obvious motor or sensory deficits. Coordination appears grossly intact. Speech is normal. Skin: Skin is warm and dry and no rashes or lesions are noted. Psychiatric: Cooperative, appropriate mood & affect, normal judgment. Limitations: no limitations Course Vital Signs 09/20/17 14:39 Temperature 98 F Pulse Rate 70 Respiratory 16 Rate Blood Pressure 112/70 O2 Sat by Pulse 100 Oximetry Medical Decision Making - Medical Decision Making Patient feeling better here in the emergency room after medication. Options were discussed about IV. Has declined. Feels well with Zofran ODT. Tolerating fluids. Will be discharged home. Advised follow-up or return if symptoms increase or worsen. Disposition Clinical Impression: Nausea & vomiting Disposition: HOME SELF-CARE Condition: Good Instructions: Acute Nausea and Vomiting (ED) Additional Instructions: Please use medication as discussed. Please follow-up with family doctor in the next 2 days of symptoms have not improved. Please return to emergency room if the symptoms increase or worsen or for any other concerns. Prescriptions: Ondansetron Odt [Zofran ODT] 4 mg PO Q8HR PRN #20 tab PRN Reason: Nausea Referrals: Carissa Schroeder MD [Primary Care Provider] - 1-2 days Time of Disposition: 15:52
[2017-09-20 16:07] VITALS: BP 120/56; PULSE 72; TEMP 97.4
== END 2017-09-20 15:55 | disposition home or self-care (01) ==
LOC: SUPCPDRO 14:31 → EC 14:31
DX: R11.2 Nausea with vomiting, unspecified (principal); R42 Dizziness and giddiness; R63.8 Other symptoms and signs concerning food and fluid intake; F17.200 Nicotine dependence, unspecified, uncomplicated; Z79.891 Long term (current) use of opiate analgesic; Z79.899 Other long term (current) drug therapy; Z88.5 Allergy status to narcotic agent
CPT/HCPCS: 99283

== ENCOUNTER 2017-12-05 23:05 | Emergency (ER) | payer OTHER ==
[2017-12-05] MEDS ORDERED: KETOROLAC 30 MG/ML 1 ML VIAL IVP STA (23:31)
[2017-12-05] MEDS ORDERED: SODIUM CHLORIDE 0.9% 1,000 ML IV STA (23:31)
[2017-12-05] MEDS ORDERED: METOCLOPRAMIDE 5 MG/ML 2 ML VIAL IVP STA (23:31)
[2017-12-05] MEDS ORDERED: diphenhydrAMINE 50 MG/ML 1 ML VIAL IVP STA (23:31)
--- NOTE | 2017-12-05 23:35 | ED ---
Headache HPI - General Chief Complaint: Headache Stated Complaint: Headache,Fever Time Seen by Provider: 12/05/17 23:21 Mode of arrival: ambulatory Limitations: no limitations - History of Present Illness Initial Comments: Patient is a 32-year-old male presenting to the emergency department for headache. He states that he woke up this morning with nausea and a fever of 102. He also admits to diffuse headache that has been fairly constant. He tried some Tylenol at noon which helped the fever but did not help the pain. He denies any significant neck pain or back pain as well as any abdominal complaints such as vomiting or diarrhea. Additionally, his fianc states that she had a viral type illness within the last week and thinks he may have contracted it. He denies any IV drug use or other illicit drug use - Related Data Home Medications Medication Instructions Recorded Confirmed Sertraline [Zoloft] 100 mg PO HS 01/05/17 12/05/17 Allergies Allergy/AdvReac Type Severity Reaction Status Date / Time codeine Allergy Rash/Hives/ Verified 12/05/17 23:16 Itching Review of Systems ROS Statement: Those systems with pertinent positive or pertinent negative responses have been documented in the HPI. Constitutional: Negative for chills, fatigue and fever. HENT: Negative for congestion. Respiratory: Negative for chest tightness, shortness of breath and wheezing. Cardiovascular: Negative for chest pain and palpitations. Gastrointestinal: Negative for abdominal pain. Negative for abdominal distention , diarrhea, nausea and vomiting. Genitourinary: Negative for dysuria. Musculoskeletal: Negative for back pain, neck pain and neck stiffness. Skin: Negative for color change. Neurological: Negative for dizziness, speech difficulty, weakness and light- headedness. Positive for headache Psychiatric/Behavioral: Negative for agitation and confusion. The patient is not nervous/anxious. ROS Other: All systems not noted in ROS Statement are negative. 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 History of Any Multi-Drug Resistant Organisms: None Reported Past Surgical History: Joint Replacement, Orthopedic Surgery Additional Past Surgical History / Comment(s): Left jaw surgery with plate. Past Psychological History: Anxiety, Depression Smoking Status: Current every day smoker Past Alcohol Use History: None Reported Past Drug Use History: None Reported General Exam - General Exam Comments Initial Comments: Physical Exam Constitutional: Pt is oriented to person, place, and time. Pt appears well- developed and well-nourished. No distress. HENT: Head: Normocephalic and atraumatic. Eyes: EOM are normal. Neck: Normal range of motion. Neck supple. Negative Kernig, negative Brudzinski Cardiovascular: Normal rate, regular rhythm, S1 normal, S2 normal and normal heart sounds. Exam reveals no gallop and no friction rub. No murmur heard. Pulmonary/Chest: Effort normal and breath sounds normal. No tachypnea and no bradypnea. No respiratory distress. No wheezes or rales noted. Abdominal: Soft. Bowel sounds are normal. Pt exhibits no shifting dullness, no distension, no pulsatile liver, no fluid wave, no abdominal bruit and no ascites. There is no tenderness. There is no rigidity, no rebound, no guarding, no tenderness at McBurney's point and negative Ortega's sign. Musculoskeletal: Normal range of motion. Neurological: Pt is alert and oriented to person, place, and time. No cranial nerve deficit. No meningeal signs present Skin: Skin is warm and dry. No rash noted. Pt is not diaphoretic. No erythema. No pallor. Psychiatric: Pt has a normal mood and affect. Pt behavior is normal. Thought content normal. Limitations: no limitations Course Vital Signs 12/05/17 12/06/17 23:13 00:43 Temperature 98.5 F 97 F L Pulse Rate 82 68 Respiratory 20 18 Rate Blood Pressure 109/68 108/56 O2 Sat by Pulse 100 98 Oximetry Medical Decision Making - Medical Decision Making Laboratory studies revealed that influenza was negative. Extensive discussion was had with the patient and his family member about the possibility of meningitis. Joint decision making was conducted and it was decided that there is a low likelihood of meningitis based on physical exam findings as well as HPI. However, present cons of lumbar puncture were discussed and patient currently declined. Patient was given fluids as well as Toradol, Reglan, Benadryl and stated that his symptoms were much improved.It was explained that while there does not appear to be an emergent process, the etiology of the symptoms are still unclear but possibly related to viral illness and may need further workup as an outpatient if symptoms continue. Explained all labs and diagnostic test results and that we will discharge the patient home and patient is to follow up with PCP in 1-2 days and return to the ED if symptoms worsen. Pt is agreeable to plan. - Lab Data Lab Results 12/05/17 Range/Units 23:42 Influenza Type A RNA Not Detected (Not Detectd) Influenza Type B (PCR) Not Detected (Not Detectd) Disposition Clinical Impression: Headache Disposition: HOME SELF-CARE Condition: Good Instructions: Acute Headache (ED) Referrals: None,Stated [Primary Care Provider] - 1-2 days Time of Disposition: 00:25
[2017-12-06 00:44] VITALS: BP 108/56; PULSE 68; RESP 18; TEMP 97
== END 2017-12-06 00:47 | disposition home or self-care (01) ==
LOC: EC 23:05
DX: R51 Headache (principal); R11.0 Nausea; R50.9 Fever, unspecified; F32.9 Major depressive disorder, single episode, unspecified; F41.9 Anxiety disorder, unspecified; F17.200 Nicotine dependence, unspecified, uncomplicated; Z85.830 Personal history of malignant neoplasm of bone; Z79.899 Other long term (current) drug therapy; Z88.5 Allergy status to narcotic agent
CPT/HCPCS: 87502; 99284; 96374; 96375 ×2; 96361; J1200; J2765; J1885

== ENCOUNTER 2018-04-25 21:13 | Emergency (ER) | payer OTHER ==
[2018-04-25 21:18] VITALS: BP 117/74; PULSE 87; RESP 16; TEMP 98.3
[2018-04-25] MEDS ORDERED: ONDANSETRON 4 MG/2 ML VIAL IVP STA (22:03)
--- NOTE | 2018-04-25 22:41 | ED ---
Nausea/Vomiting/Diarrhea HPI - General Chief complaint: Nausea/Vomiting/Diarrhea Stated complaint: needs a work note Time Seen by Provider: 04/25/18 21:57 Source: patient Mode of arrival: ambulatory Limitations: no limitations - History of Present Illness Initial comments: 32-year-old male patient presents to the emergency department today requesting clearance to return to work tomorrow. Patient states on he developed vomiting and diarrhea. States that he had numerous episodes throughout the night on and into the morning on Thursday. Patient states that he called in to work Thursday and Thursday. Patient states that his boss is requiring clearance for him to be able to return tomorrow. Patient states that he has been eating and drinking without difficulty. He denies any current loose stool. Denies any abdominal pain. He has not had any fevers or chills. Sates that he is immunized against hepatitis A. Patient denies any recent rash, shortness breath, chest pain, back pain, numbness, tingling, dizziness, weakness , hematuria, dysuria, urinary urgency, urinary frequency, headache, visual changes, or any other complaints. - Related Data Home Medications Medication Instructions Recorded Confirmed Sertraline [Zoloft] 100 mg PO HS 01/05/17 12/05/17 Allergies Allergy/AdvReac Type Severity Reaction Status Date / Time codeine Allergy Rash/Hives/ Verified 04/25/18 21:18 Itching Review of Systems ROS Statement: Those systems with pertinent positive or pertinent negative responses have been documented in the HPI. ROS Other: All systems not noted in ROS Statement are negative. 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 History of Any Multi-Drug Resistant Organisms: None Reported Past Surgical History: Joint Replacement, Orthopedic Surgery Additional Past Surgical History / Comment(s): Left jaw surgery with plate. Past Psychological History: Anxiety, Depression Smoking Status: Current every day smoker Past Alcohol Use History: None Reported Past Drug Use History: None Reported General Exam Limitations: no limitations General appearance: alert, in no apparent distress, other (This is a well- developed, well-nourished adult male patient in no acute distress. Vital signs upon presentation are temperature 98.3F, pulse 87, respirations 16, blood pressure 117/74, pulse ox 99% on room air.) Eye exam: Present: normal appearance, PERRL, EOMI. Absent: scleral icterus, conjunctival injection, periorbital swelling ENT exam: Present: normal exam, normal oropharynx, mucous membranes moist Respiratory exam: Present: normal lung sounds bilaterally. Absent: respiratory distress, wheezes, rales, rhonchi, stridor Cardiovascular Exam: Present: regular rate, normal rhythm, normal heart sounds. Absent: systolic murmur, diastolic murmur, rubs, gallop, clicks GI/Abdominal exam: Present: soft, normal bowel sounds. Absent: distended, tenderness, guarding, rebound, rigid Neurological exam: Present: alert, oriented X3, CN II-XII intact Psychiatric exam: Present: normal affect, normal mood Skin exam: Present: warm, dry, intact, normal color. Absent: rash Course Vital Signs 04/25/18 21:15 Temperature 98.3 F Pulse Rate 87 Respiratory 16 Rate Blood Pressure 117/74 O2 Sat by Pulse 99 Oximetry Medical Decision Making - Medical Decision Making 32-year-old male patient presented to the emergency department today requesting a note to return to work. Patient had been sick with gastroenteritis type symptoms on and Thursday morning. Current physical examination is unremarkable. Patient is afebrile, vital signs are stable. Skin is pink, warm , and dry. No evidence of scleral icterus. Did provide patient with a note to return to work. He is instructed to follow-up with his primary care physician for recheck in 1-2 days. Return parameters discussed in detail. He verbalizes understanding and agreed with this plan. Disposition Clinical Impression: Gastroenteritis Disposition: HOME SELF-CARE Condition: Good Instructions: Acute Nausea and Vomiting (ED), Acute Diarrhea (ED) Additional Instructions: Increase fluids. Follow-up with your primary care physician for recheck as possible. Return here immediately for any new, worsening, or concerning symptoms. Is patient prescribed a controlled substance at d/c from ED?: No Referrals: Any Bustamante MD [STAFF PHYSICIAN] - 1-2 days Time of Disposition: 22:41
== END 2018-04-25 22:45 | disposition home or self-care (01) ==
LOC: EC 21:13
DX: K52.9 Noninfective gastroenteritis and colitis, unspecified (principal); F32.9 Major depressive disorder, single episode, unspecified; F41.9 Anxiety disorder, unspecified; F17.200 Nicotine dependence, unspecified, uncomplicated; Z98.890 Other specified postprocedural states; Z79.899 Other long term (current) drug therapy; Z88.5 Allergy status to narcotic agent
CPT/HCPCS: 99283

== ENCOUNTER 2018-07-24 21:50 | Observation (INO) | payer OTHER ==
[2018-07-24 22:30] LABS: HCT 44.7 % (39.0-53.0); HGB 14.7 gm/dL (13.0-17.5); MCH 29.9 pg (25.0-35.0); MCHC 32.9 g/dL (31.0-37.0); MCV 90.8 fL (80.0-100.0); Mean Platelet Volume 7.6; Platelet Count 170 k/uL (150-450); RBC 4.92 m/uL (4.30-5.90); RDW 12.9 % (11.5-15.5); WBC 7.3 k/uL (3.8-10.6)
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
[2018-07-24 22:41] LABS: ALT 251 U/L (21-72); AST 130 U/L (17-59); Albumin 4.8 g/dL (3.5-5.0); Alcohol <10 mg/dL; Alkaline Phosphatase 70 U/L (38-126); Amylase 41 U/L (30-110); Anion Gap 11 mmol/L; Blood Urea Nitrogen 23 mg/dL (9-20); Calcium 10.2 mg/dL (8.4-10.2); Carbon Dioxide 25 mmol/L (22-30); Chloride 103 mmol/L (98-107); Glucose 118 mg/dL (74-99); Lipase 41 U/L (23-300); Potassium 3.8 mmol/L (3.5-5.1); Sodium 139 mmol/L (137-145); Total Bilirubin 1.5 mg/dL (0.2-1.3); Total Protein 7.7 g/dL (6.3-8.2)
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
[2018-07-24 22:42] LABS: INR 1.1 (<1.2); Partial Thromboplastin Time 24.4 sec (22.0-30.0); Prothrombin Time 10.9 sec (9.0-12.0)
[2018-07-24 22:55] LABS: Creatine Kinase 267 U/L (55-170)
[2018-07-24] MEDS ORDERED: ceFAZolin IN SWFI 2 GM/20 ML SYRINGE IVP ONE (23:00)
[2018-07-24 23:07] LABS: Creatine Kinase MB 3.6 ng/mL (0.0-2.4); Troponin I <0.012 ng/mL (0.000-0.034)
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
[2018-07-24 23:31] LABS: Band Neutrophils % 2 %; Lymphocytes # (M) 1.75 k/uL (1.0-4.8); Monocytes # (M) 0.95 k/uL (0-1.0); Neutrophils % (M) 61 %; Nucleated Red Blood Cells 0 /100 WBC (0-0); Total Cells Counted 100
[2018-07-24 23:32] LABS: Large Platelets Present
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
[2018-07-25] MEDS ORDERED: ONDANSETRON 4 MG/2 ML VIAL IVP PRN (00:55)
[2018-07-25] MEDS ORDERED: NALOXONE 0.4 MG/ML 1 ML VIAL IV PRN (00:55)
[2018-07-25] MEDS ORDERED: HYDROcodone/APAP 5-325MG 1 EACH TAB PO PRN (00:55)
[2018-07-25] MEDS ORDERED: DIPH,PERTUS(ACELL)TETVAC-LF 0.5 ML VIAL IM ONE (01:38)
[2018-07-25] MEDS: SODIUM CHLORIDE 0.9% 1,000 ML IV SCH ×2 (01:46→09:54)
[2018-07-25] MEDS: MORPHINE SULFATE 4 MG/ML SYRINGE IV PRN ×4 (01:50→17:21)
[2018-07-25 02:55] LABS: Glucose,Whole Blood 80 mg/dL (75-99)
[2018-07-25 03:14] LABS: Appearance,Urine Clear (Clear); Bilirubin,Urine Negative (Negative); Blood,Urine Negative (Negative); Color,Urine Yellow; Glucose,Urine (UA) Negative (Negative); Ketones,Urine Negative (Negative); Leukocyte Esterase,Urine Negative (Negative); Nitrite,Urine Negative (Negative); Protein,Urine Negative (Negative); Specific Gravity,Urine 1.045 (1.001-1.035); Urobilinogen,Urine <2.0 mg/dL (<2.0)
[2018-07-25 03:33] LABS: Urn Cannabinoid Scrn Detected (NotDetected)
[2018-07-25 03:34] LABS: Amphetamine Screen,Urine Detected (NotDetected); Barbiturate Screen,Urine Not Detected (NotDetected); Benzodiazepines Screen,Urine Detected (NotDetected); Cocaine Screen,Urine Detected (NotDetected); Methadone Screen, Urine Not Detected (NotDetected); Opiate Screen,Urine Detected (NotDetected); Oxycodone Screen, Urine Not Detected (NotDetected); Phencyclidine Screen,Urine Not Detected (NotDetected); Tricyclic Antidepressant,Urine Not Detected (NotDetected)
[2018-07-25] MEDS ORDERED: ceFAZolin 1,000 MG in DEXTROSE/WATER 1 50ML.BAG IVPB SCH (05:00)
[2018-07-25 08:11] LABS: Basophils % (A) 1 %; Eosinophils # (A) 0.1 k/uL (0-0.7); Eosinophils % (A) 3 %; HCT 46.3 % (39.0-53.0); HGB 15.2 gm/dL (13.0-17.5); Lymphocytes # (A) 1.9 k/uL (1.0-4.8); Lymphocytes % (A) 39 %; MCH 30.3 pg (25.0-35.0); MCHC 32.7 g/dL (31.0-37.0); MCV 92.5 fL (80.0-100.0); Mean Platelet Volume 7.7; Monocytes # (A) 0.5 k/uL (0-1.0); Monocytes % (A) 9 %; Neutrophils # (A) 2.3 k/uL (1.3-7.7); Neutrophils % (A) 46 %; Platelet Count 153 k/uL (150-450); RBC 5.01 m/uL (4.30-5.90); RDW 12.8 % (11.5-15.5)
[2018-07-25 08:20] LABS: ALT 233 U/L (21-72); AST 131 U/L (17-59); Albumin 4.4 g/dL (3.5-5.0); Alkaline Phosphatase 74 U/L (38-126); Anion Gap 8 mmol/L; Blood Urea Nitrogen 16 mg/dL (9-20); Calcium 9.2 mg/dL (8.4-10.2); Carbon Dioxide 26 mmol/L (22-30); Chloride 106 mmol/L (98-107); Glucose 73 mg/dL (74-99); Magnesium 2.1 mg/dL (1.6-2.3); Sodium 140 mmol/L (137-145); Total Bilirubin 1.4 mg/dL (0.2-1.3); Total Protein 7.2 g/dL (6.3-8.2)
[2018-07-25] MEDS ORDERED: KETOROLAC 30 MG/ML 1 ML VIAL IVP STA (08:46)
[2018-07-25] MEDS ORDERED: MORPHINE SULFATE 2 MG/ML SYRINGE IVP STA (08:53)
[2018-07-25] MEDS ORDERED: QUEtiapine 50 MG TAB PO SCH (09:00)
[2018-07-25] MEDS ORDERED: lamoTRIgine 100 MG TAB PO SCH (09:00)
[2018-07-25] MEDS ORDERED: FAMOTIDINE 20 MG TAB PO SCH (09:00)
[2018-07-25] MEDS ORDERED: BUPRENORPHINE HCL BUCCAL SCH (09:00)
[2018-07-25] MEDS ORDERED: NALOXONE HCL BUCCAL SCH (09:00)
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
[2018-07-25 09:42] VITALS: BMI 17.4
[2018-07-25 10:52] VITALS: TEMP 97.5
[2018-07-25] MEDS ORDERED: TEMAZEPAM 15 MG CAP PO PRN (11:05)
[2018-07-25] MEDS ORDERED: ALPRAZolam 0.25 MG TAB PO PRN (11:05)
[2018-07-25] MEDS ORDERED: NICOTINE 21MG/24HR PATCH TRANSDERM SCH (11:15)
[2018-07-25] MEDS ORDERED: ceFAZolin 1,000 MG in DEXTROSE/WATER 1 50ML.BAG IV SCH (12:00)
[2018-07-25] MEDS ORDERED: KETOROLAC 30 MG/ML 1 ML VIAL IVP SCH ×2 (12:00→18:00)
[2018-07-25] MEDS ORDERED: HEPARIN SODIUM,PORCINE 5,000 UNIT/ML 1 ML VIAL SQ SCH (16:00)
--- NOTE | 2018-07-25 16:00 | P.CONS ---
History of Present Illness - Reason for Consult Polysubstance abuse - History of Present Illness -year-old male with history of po opiate abuse and is on Suboxone for that comes in for, and multiple facial bone fractures and subcutaneous emphysema and some swelling in the throat area without any stridor. Patient is presently on morphine which I'll discontinue tomorrow morning patient was started on Toradol with the GI prophylaxis since he is already on Suboxone. Patient urine drug screen is positive for multiple medications including amphetamines cocaine and marijuana and opiates. Patient denied any fever chills nausea vomiting. Patient also is comparing of pain in the fracture site areas . Patient never used IV drugs never was tested for hepatitis in the past Review of Systems REVIEW OF SYSTEMS: CONSTITUTIONAL: No fever, no malaise, no fatigue. HEENT: No recent visual problems or hearing problems. Denied any sore throat. CARDIOVASCULAR: No chest pain, orthopnea, PND, no palpitations, no syncope. PULMONARY: No shortness of breath, no cough, no hemoptysis. GASTROINTESTINAL: No diarrhea, no nausea, no vomiting, no abdominal pain. Normoactive bowel sounds. NEUROLOGICAL: No headaches, no weakness, no numbness. HEMATOLOGICAL: Denies any bleeding or petechiae. GENITOURINARY: Denies any burning micturition, frequency, or urgency. MUSCULOSKELETAL/RHEUMATOLOGICAL: Denies any joint pain, swelling, or any muscle pain. ENDOCRINE: Denies any polyuria or polydipsia. The rest of the 14-point review of systems is negative. 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 History of Any Multi-Drug Resistant Organisms: None Reported Past Surgical History: Joint Replacement, Orthopedic Surgery Additional Past Surgical History / Comment(s): Left jaw surgery with plate. Past Anesthesia/Blood Transfusion Reactions: Postoperative Nausea & Vomiting ( PONV) Past Psychological History: Anxiety, Depression Smoking Status: Current every day smoker Past Alcohol Use History: None Reported Past Drug Use History: None Reported - Past Family History Father Family Medical History: Fibromyalgia Additional Family Medical History / Comment(s): Depression, anxiety, 6 herniated disc in back Mother Additional Family Medical History / Comment(s): hip replacement Medications and Allergies Home Medications Medication Instructions Recorded Confirmed Type Buprenorphine HCl/Naloxone HCl 0.25 film SL BID 07/25/18 07/25/18 History [Suboxone 8 mg-2 mg Sl Film] FLUoxetine HCL [PROzac] 20 mg PO HS 07/25/18 07/25/18 History QUEtiapine [SEROquel] 25 mg PO HS 07/25/18 07/25/18 History lamoTRIgine [LaMICtal] 100 mg PO BID 07/25/18 07/25/18 History Allergies Allergy/AdvReac Type Severity Reaction Status Date / Time codeine Allergy Rash/Hives/ Verified 07/25/18 13:16 Itching Physical Exam Vitals: Vital Signs Temp Pulse Resp BP Pulse Ox 07/25/18 10:00 110 H 17 123/82 99 07/25/18 08:00 97.5 F L 86 12 104/60 96 07/25/18 06:00 58 L 19 99/57 99 07/25/18 04:00 98 F 65 12 96/55 97 07/25/18 03:00 64 13 112/67 100 07/25/18 02:50 97.5 F L 64 8 L 112/67 100 07/25/18 02:20 97.4 F L 62 18 104/66 98 07/24/18 21:59 98.0 F 116 H 18 130/70 97 Intake and Output 07/25/18 07/25/18 07/25/18 06:59 14:59 22:59 Intake Total 550 500 Balance 550 500 Intake: IV 550 500 Sodium Chloride 0.9% 1, 500 500 000 ml @ 125 mls/hr IV . Q8H GRICEL Rx#:[id number] ceFAZolin 1,000 mg In 50 Dextrose/Water 1 50ml.bag @ 100 mls/hr IV Q6H GRICEL Rx#:[id number] Other: Voiding Method Urinal # Voids 1 1 Weight 61.5 kg PHYSICAL EXAMINATION: GENERAL: The patient is alert and oriented x3, not in any acute distress. Well developed, well nourished. HEENT: Pupils are round and equally reacting to light. EOMI. No scleral icterus. No conjunctival pallor. Patient has swollen face mostly in the left side with the swelling and the cheeks No thyromegaly. CARDIOVASCULAR: S1 and S2 present. No murmurs, rubs, or gallops. PULMONARY: Chest is clear to auscultation, no wheezing or crackles. ABDOMEN: Soft, nontender, nondistended, normoactive bowel sounds. No palpable organomegaly. MUSCULOSKELETAL: No joint swelling or deformity. EXTREMITIES: No cyanosis, clubbing, or pedal edema. NEUROLOGICAL: Gross neurological examination did not reveal any focal deficits. SKIN: No rashes. Results CBC & Chem 7: 07/25/18 07:41 07/25/18 07:41 Labs: Abnormal Lab Results - Last 24 Hours (Table) 07/24/18 07/24/18 07/25/18 Range/Units 22:10 22:10 02:58 BUN 23 H (9-20) mg/dL Glucose 118 H (74-99) mg/dL Total Bilirubin 1.5 H (0.2-1.3) mg/dL AST 130 H (17-59) U/L ALT 251 H (21-72) U/L Total Creatine Kinase 267 H (55-170) U/L CK-MB (CK-2) 3.6 H (0.0-2.4) ng/mL Ur Specific [place] 1.045 H (1.001-1.035) Urine Opiates Screen Detected H (NotDetected) Ur Amphetamines Screen Detected H (NotDetected) U Methamphetamines Scrn Detected H (NotDetected) U Benzodiazepines Scrn Detected H (NotDetected) Urine Cocaine Screen Detected H (NotDetected) U Marijuana (THC) Screen Detected H (NotDetected) 07/25/18 Range/Units 07:41 BUN (9-20) mg/dL Glucose 73 L (74-99) mg/dL Total Bilirubin 1.4 H (0.2-1.3) mg/dL AST 131 H (17-59) U/L ALT 233 H (21-72) U/L Total Creatine Kinase (55-170) U/L CK-MB (CK-2) (0.0-2.4) ng/mL Ur Specific [place] (1.001-1.035) Urine Opiates Screen (NotDetected) Ur Amphetamines Screen (NotDetected) U Methamphetamines Scrn (NotDetected) U Benzodiazepines Scrn (NotDetected) Urine Cocaine Screen (NotDetected) U Marijuana (THC) Screen (NotDetected) Assessment and Plan Plan: -Facial trauma :ENT was consulted, surgery is following the patient. Patient was started on Toradol avoid morphine as patient is already on Suboxone which was resumed -Multiple drug or abuse: Counseling was provided -Elevated liver enzymes I'll obtain hepatitis panel repeat liver enzymes tomorrow -Due to prophylaxis with subcutaneous heparin -Depression and bipolar: Patient will be resumed on his home medications of Lamictal Seroquel Prozac
[2018-07-25 18:50] VITALS: BP 97/56; PULSE 62; RESP 16
[2018-07-25] MEDS ORDERED: FLUoxetine HCL 20 MG CAP PO SCH (21:00)
[2018-07-25] MEDS ORDERED: SERTRALINE 100 MG TAB PO SCH (21:00)
[2018-07-26 11:11] LABS: Hepatitis A Antibody IgM Non-Reactive (Non-Reactive); Hepatitis B Core IgM Non-Reactive (Non-Reactive)
== END 2018-07-25 19:33 | disposition home or self-care (01) ==
LOC: EC 21:50 → 2SICU 07-25 00:56 → INTOOBSV 07-25 00:56 → 2SICU 07-25 01:43 → UNDODISIN 07-25 19:33
PROVIDERS: ADMIT Surgery; ATTEND Surgery
DX: S02.40FA Zygomatic fracture, left side, initial encounter for closed fracture (principal); S02.82XA Fracture of other specified skull and facial bones, left side, initial encounter for closed fracture; T79.7XXA Traumatic subcutaneous emphysema, initial encounter; F17.200 Nicotine dependence, unspecified, uncomplicated; F31.9 Bipolar disorder, unspecified; F43.10 Post-traumatic stress disorder, unspecified; F41.9 Anxiety disorder, unspecified; F15.10 Other stimulant abuse, uncomplicated; F14.10 Cocaine abuse, uncomplicated; F12.10 Cannabis abuse, uncomplicated; R74.8 Abnormal levels of other serum enzymes; Z79.899 Other long term (current) drug therapy; Z88.5 Allergy status to narcotic agent; Z79.891 Long term (current) use of opiate analgesic; Z85.9 Personal history of malignant neoplasm, unspecified; Z96.698 Presence of other orthopedic joint implants; Z81.8 Family history of other mental and behavioral disorders; Z82.69 Family history of other diseases of the musculoskeletal system and connective tissue; V18.4XXA Pedal cycle driver injured in noncollision transport accident in traffic accident, initial encounter; Y93.55 Activity, bike riding; Z23 Encounter for immunization
CPT/HCPCS: 96376; 96365; 96372; 96375 ×3; 96361; 99291; 36415; 93005; 86900; 86901; 80053 ×2; 80074; 82150; 82550; 82553; 83605; 83690; 83735; 84100; 84484; 85025 ×2; 85610; 85730; 86850; 81003; 80306; 71045; 70486; 70450; 71260; 74160; 90715; G0378; G0480; S4990; J2270 ×2; J1644; J1885; J0690 ×2; Q9967; 80320; 96374; 99285

== ENCOUNTER 2019-03-01 16:15 | Emergency (ER) | payer OTHER ==
[2019-03-01 16:37] VITALS: BP 128/82; PULSE 108; RESP 18; TEMP 99.2
[2019-03-01] MEDS ORDERED: KETOROLAC 60 MG/2 ML VIAL IM STA (16:55)
[2019-03-01] MEDS ORDERED: HYDROcodone/APAP 5-325MG 1 EACH TAB PO STA (16:56)
--- NOTE | 2019-03-01 16:56 | ED ---
Back Pain HPI - General Chief Complaint: Back Pain/Injury Stated Complaint: Back pain Time Seen by Provider: 03/01/19 16:52 Source: patient Limitations: no limitations - Related Data Home Medications Medication Instructions Recorded Confirmed Buprenorphine HCl/Naloxone HCl 0.25 film SL BID 07/25/18 07/25/18 [Suboxone 8 mg-2 mg Sl Film] FLUoxetine HCL [PROzac] 20 mg PO HS 07/25/18 07/25/18 QUEtiapine [SEROquel] 25 mg PO HS 07/25/18 07/25/18 lamoTRIgine [LaMICtal] 100 mg PO BID 07/25/18 07/25/18 Previous Rx's Medication Instructions Recorded Naproxen [Naprosyn] 500 mg PO Q12HR PRN #30 tab 03/01/19 Allergies Allergy/AdvReac Type Severity Reaction Status Date / Time codeine Allergy Rash/Hives/ Verified 03/01/19 16:37 Itching Review of Systems ROS Statement: Those systems with pertinent positive or pertinent negative responses have been documented in the HPI. ROS Other: All systems not noted in ROS Statement are negative. 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 History of Any Multi-Drug Resistant Organisms: None Reported Past Surgical History: Joint Replacement, Orthopedic Surgery Additional Past Surgical History / Comment(s): Left jaw surgery with plate. Past Anesthesia/Blood Transfusion Reactions: Postoperative Nausea & Vomiting (PONV) Past Psychological History: Anxiety, Depression Smoking Status: Current every day smoker Past Alcohol Use History: None Reported Past Drug Use History: None Reported - Past Family History Father Family Medical History: Fibromyalgia Additional Family Medical History / Comment(s): Depression, anxiety, 6 herniated disc in back Mother Additional Family Medical History / Comment(s): hip replacement General Exam Limitations: no limitations Course Vital Signs 03/01/19 16:34 Temperature 99.2 F Pulse Rate 108 H Respiratory 18 Rate Blood Pressure 128/82 O2 Sat by Pulse 99 Oximetry Disposition Clinical Impression: Mechanical back pain, Lumbar radiculopathy Disposition: HOME SELF-CARE Condition: Good Instructions (If sedation given, give patient instructions): Acute Low Back Pain (ED) Prescriptions: Naproxen [Naprosyn] 500 mg PO Q12HR PRN #30 tab PRN Reason: Pain Is patient prescribed a controlled substance at d/c from ED?: No Referrals: None,Stated [Primary Care Provider] - 1-2 days
--- NOTE | 2019-03-03 05:11 | CDI ---
Documentation Clarification OP Dear Rodney BENOIT, DO Please do addendum to ED report for missing HPI and Physical examination. Thank you, Adali Borden Political Analyst If you have any questions, please contact Supervisor Grounds at [phone] [facility]
--- NOTE | 2019-03-09 18:52 | ED ---
Back Pain HPI - General Chief Complaint: Back Pain/Injury Stated Complaint: Back pain Time Seen by Provider: 03/01/19 16:52 Source: patient, RN notes reviewed, old records reviewed Limitations: no limitations - History of Present Illness Initial Comments: This is a 33-year-old male the ER for evaluation admits to severe lower back pain. Denies trauma no fevers. No drugs or alcohol. No significant abdominal pain. No recent travel history or sick contacts. Patient denies any recent tattoos. No loss of bowel or bladder. No rash MD Complaint: back pain -: hour(s) Similar Symptoms Previously: Yes Radiation: buttocks, left leg, right leg Severity: mild Severity scale (1-10): 3 Consistency: constant Improves With: none Worsens With: none Context: fall Associated Symptoms: weakness - Related Data Home Medications Medication Instructions Recorded Confirmed Buprenorphine HCl/Naloxone HCl 0.25 film SL BID 07/25/18 07/25/18 [Suboxone 8 mg-2 mg Sl Film] FLUoxetine HCL [PROzac] 20 mg PO HS 07/25/18 07/25/18 QUEtiapine [SEROquel] 25 mg PO HS 07/25/18 07/25/18 lamoTRIgine [LaMICtal] 100 mg PO BID 07/25/18 07/25/18 Previous Rx's Medication Instructions Recorded Naproxen [Naprosyn] 500 mg PO Q12HR PRN #30 tab 03/01/19 Allergies Allergy/AdvReac Type Severity Reaction Status Date / Time codeine Allergy Rash/Hives/ Verified 03/01/19 16:37 Itching Review of Systems ROS Statement: Those systems with pertinent positive or pertinent negative responses have been documented in the HPI. ROS Other: All systems not noted in ROS Statement are negative. 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 History of Any Multi-Drug Resistant Organisms: None Reported Past Surgical History: Joint Replacement, Orthopedic Surgery Additional Past Surgical History / Comment(s): Left jaw surgery with plate. Past Anesthesia/Blood Transfusion Reactions: Postoperative Nausea & Vomiting (PONV) Past Psychological History: Anxiety, Depression Smoking Status: Current every day smoker Past Alcohol Use History: None Reported Past Drug Use History: None Reported - Past Family History Father Family Medical History: Fibromyalgia Additional Family Medical History / Comment(s): Depression, anxiety, 6 herniated disc in back Mother Additional Family Medical History / Comment(s): hip replacement General Exam Limitations: no limitations General appearance: alert, in no apparent distress Head exam: Present: atraumatic, normocephalic, normal inspection Eye exam: Present: normal appearance, PERRL, EOMI. Absent: scleral icterus, conjunctival injection, periorbital swelling ENT exam: Present: normal exam, mucous membranes moist Neck exam: Present: normal inspection. Absent: tenderness, meningismus, lymphadenopathy Respiratory exam: Present: normal lung sounds bilaterally. Absent: respiratory distress, wheezes, rales, rhonchi, stridor Cardiovascular Exam: Present: normal rhythm, tachycardia, normal heart sounds. Absent: systolic murmur, diastolic murmur, rubs, gallop, clicks GI/Abdominal exam: Present: soft, normal bowel sounds. Absent: distended, tenderness, guarding, rebound, rigid Extremities exam: Present: normal inspection, full ROM, normal capillary refill. Absent: tenderness, pedal edema, joint swelling, calf tenderness Back exam: Present: normal inspection Neurological exam: Present: alert, oriented X3, CN II-XII intact Psychiatric exam: Present: normal affect, normal mood Skin exam: Present: warm, dry, intact, normal color. Absent: rash Course Vital Signs 03/01/19 16:34 Temperature 99.2 F Pulse Rate 108 H Respiratory 18 Rate Blood Pressure 128/82 O2 Sat by Pulse 99 Oximetry Medical Decision Making - Medical Decision Making 33 male the ER for evaluation of back pain no significant findings for back pain. Pain is controlled patient can be discharged home Disposition Clinical Impression: Mechanical back pain, Lumbar radiculopathy Disposition: HOME SELF-CARE Condition: Good Instructions (If sedation given, give patient instructions): Acute Low Back Pain (ED) Prescriptions: Naproxen [Naprosyn] 500 mg PO Q12HR PRN #30 tab PRN Reason: Pain Is patient prescribed a controlled substance at d/c from ED?: No Referrals: None,Stated [Primary Care Provider] - 1-2 days
== END 2019-03-01 17:42 | disposition home or self-care (01) ==
LOC: EC 16:15
DX: M54.16 Radiculopathy, lumbar region (principal); R53.1 Weakness; F41.9 Anxiety disorder, unspecified; F32.9 Major depressive disorder, single episode, unspecified; F17.200 Nicotine dependence, unspecified, uncomplicated; Z85.830 Personal history of malignant neoplasm of bone; Z96.60 Presence of unspecified orthopedic joint implant; Z98.890 Other specified postprocedural states; Z79.899 Other long term (current) drug therapy; Z88.5 Allergy status to narcotic agent
CPT/HCPCS: 99284; 96372; J1885

== ENCOUNTER 2019-04-10 07:18 | Emergency (ER) | payer OTHER ==
[2019-04-10 07:24] VITALS: BP 136/85; PULSE 107; RESP 18; TEMP 98.7
[2019-04-10] MEDS ORDERED: ORPHENADRINE 30 MG/ML 2 ML VIAL IM STA (07:40)
[2019-04-10] MEDS ORDERED: KETOROLAC 60 MG/2 ML VIAL IM STA (07:40)
--- NOTE | 2019-04-10 07:44 | ED ---
General Adult HPI - General Chief complaint: Back Pain/Injury Stated complaint: LOWER BACK PAIN, RADIATING DOWN LEGS Time Seen by Provider: 04/10/19 07:20 Source: patient, RN notes reviewed Mode of arrival: ambulatory - History of Present Illness Initial comments: This is a 33-year-old male who presents emergency Department with some right lower back pain. Patient states been ongoing for 4 days. Patient states anytime he twists or bends he feels a pull in his lower back. Patient denies any numbness or weakness. Patient states lifting up his right leg occasionally hurts his back but he has no pain in the right leg. Patient denies any recent injury or trauma. Patient denies any fever chills. Patient states he has had come back in the past. Patient denies abdominal pain to me though in triage she told someone that radiated into the belly. He has no vomiting or diarrhea or nausea. - Related Data Home Medications Medication Instructions Recorded Confirmed FLUoxetine HCL [PROzac] 20 mg PO HS 07/25/18 04/10/19 QUEtiapine [SEROquel] 25 mg PO HS 07/25/18 04/10/19 lamoTRIgine [LaMICtal] 100 mg PO BID 07/25/18 04/10/19 Previous Rx's Medication Instructions Recorded Cyclobenzaprine [Flexeril] 10 mg PO TID #20 tab 04/10/19 Ibuprofen [Motrin] 600 mg PO Q6HR PRN #20 tab 04/10/19 Allergies Allergy/AdvReac Type Severity Reaction Status Date / Time codeine Allergy Rash/Hives/ Verified 04/10/19 08:25 Itching Review of Systems ROS Statement: Those systems with pertinent positive or pertinent negative responses have been documented in the HPI. ROS Other: All systems not noted in ROS Statement are negative. 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 History of Any Multi-Drug Resistant Organisms: None Reported Past Surgical History: Joint Replacement, Orthopedic Surgery Additional Past Surgical History / Comment(s): Left jaw surgery with plate. Past Anesthesia/Blood Transfusion Reactions: Postoperative Nausea & Vomiting (PONV) Past Psychological History: Anxiety, Depression, PTSD Smoking Status: Current every day smoker Past Alcohol Use History: None Reported Past Drug Use History: Marijuana - Past Family History Father Family Medical History: Fibromyalgia Additional Family Medical History / Comment(s): Depression, anxiety, 6 herniated disc in back Mother Additional Family Medical History / Comment(s): hip replacement General Exam - General Exam Comments Initial Comments: GENERAL: Patient is well-developed and well-nourished. Patient is nontoxic and well- hydrated and is in mild distress. ENT: Neck is soft and supple. No significant lymphadenopathy is noted. Oropharynx is clear. Moist mucous membranes. Neck has full range of motion without eliciting any pain. EYES: The sclera were anicteric and conjunctiva were pink and moist. Extraocular movements were intact and pupils were equal round and reactive to light. Eyelids were unremarkable. PULMONARY: Unlabored respirations. Good breath sounds bilaterally. No audible rales rhonchi or wheezing was noted. CARDIOVASCULAR: There is a regular rate and rhythm without any murmurs gallops or rubs. ABDOMEN: Soft and nontender with normal bowel sounds. SKIN: Skin is clear with no lesions or rashes and otherwise unremarkable. NEUROLOGIC: Patient is alert and oriented x3. Cranial nerves II through XII are grossly intact. Motor and sensory are also intact. Normal speech, volume and content. Symmetrical smile. MUSCULOSKELETAL: Normal extremities with adequate strength and full range of motion. Patient has lower back tenderness on the right. Straight leg test is negative bilaterally LYMPHATICS: No significant lymphadenopathy is noted PSYCHIATRIC: Normal psychiatric evaluation. Course Vital Signs 04/10/19 07:20 Temperature 98.7 F Pulse Rate 107 H Respiratory 18 Rate Blood Pressure 136/85 O2 Sat by Pulse 98 Oximetry Medical Decision Making - Medical Decision Making patient received Toradol and Norflex shot emergency department and didn't feel considerably better. Patient's urine showed no red cells - Lab Data Lab Results 04/10/19 Range/Units 07:50 Urine Color Light Yellow Urine Appearance Clear (Clear) Urine pH 6.5 (5.0-8.0) Ur Specific [place] 1.005 (1.001-1.035) Urine Protein Negative (Negative) Urine Glucose (UA) Negative (Negative) Urine Ketones Negative (Negative) Urine Blood Negative (Negative) Urine Nitrite Negative (Negative) Urine Bilirubin Negative (Negative) Urine Urobilinogen <2.0 (<2.0) mg/dL Ur Leukocyte Esterase Negative (Negative) Disposition Clinical Impression: Strain of lumbar region Disposition: HOME SELF-CARE Condition: Good Instructions (If sedation given, give patient instructions): Low Back Strain (ED) Prescriptions: Cyclobenzaprine [Flexeril] 10 mg PO TID #20 tab Ibuprofen [Motrin] 600 mg PO Q6HR PRN #20 tab PRN Reason: For pain Is patient prescribed a controlled substance at d/c from ED?: No Referrals: Bernie Groves MD [Primary Care Provider] - 1-2 days
[2019-04-10 08:32] LABS: Appearance,Urine Clear (Clear); Bilirubin,Urine Negative (Negative); Blood,Urine Negative (Negative); Color,Urine Light Yellow; Glucose,Urine (UA) Negative (Negative); Ketones,Urine Negative (Negative); Leukocyte Esterase,Urine Negative (Negative); Nitrite,Urine Negative (Negative); PH, Urine 6.5 (5.0-8.0); Protein,Urine Negative (Negative); Specific Gravity,Urine 1.005 (1.001-1.035); Urobilinogen,Urine <2.0 mg/dL (<2.0)
== END 2019-04-10 08:49 | disposition home or self-care (01) ==
LOC: EC 07:18
DX: S39.012A Strain of muscle, fascia and tendon of lower back, initial encounter (principal); F31.9 Bipolar disorder, unspecified; F43.10 Post-traumatic stress disorder, unspecified; F41.9 Anxiety disorder, unspecified; F17.200 Nicotine dependence, unspecified, uncomplicated; Z79.899 Other long term (current) drug therapy; Z88.5 Allergy status to narcotic agent; X58.XXXA Exposure to other specified factors, initial encounter
CPT/HCPCS: 81003; 99283; 96372 ×2; J2360; J1885

== ENCOUNTER 2019-06-16 13:30 | Emergency (ER) | payer OTHER ==
[2019-06-16 13:34] VITALS: TEMP 99
[2019-06-16] MEDS ORDERED: METOCLOPRAMIDE 5 MG/ML 2 ML VIAL IVP STA (13:46)
[2019-06-16] MEDS ORDERED: DEXAMETHASONE SOD PHOSPHATE 10 MG/ML 1 ML VIAL IV STA (13:46)
[2019-06-16] MEDS ORDERED: diphenhydrAMINE 50 MG/ML 1 ML VIAL IVP STA (13:46)
[2019-06-16] MEDS ORDERED: SODIUM CHLORIDE 0.9% 1,000 ML IV STA (13:46)
[2019-06-16] MEDS ORDERED: LORazepam 2 MG/ML INJ IV STA (13:46)
--- NOTE | 2019-06-16 13:53 | ED ---
General Adult HPI - General Chief complaint: Headache Stated complaint: headache x 3 days Time Seen by Provider: 06/16/19 13:34 Source: patient, RN notes reviewed Mode of arrival: ambulatory Limitations: no limitations - History of Present Illness Initial comments: 33-year-old male with a past medical history of osteogenesis sarcoma presents to the emergency department for a chief complaint of headache. Patient states he has a headache across his forehead. States he has had this headache for about 3 days. States he woke up with this headache. Denies any visual changes. Admits to nausea denies vomiting. Admits to history of migraines but states this feels different. States he is very anxious.Patient has no other complaints at this time including shortness of breath, chest pain, abdominal pain, vomiting, or visual changes. - Related Data Home Medications Medication Instructions Recorded Confirmed FLUoxetine HCL [PROzac] 20 mg PO HS 07/25/18 06/16/19 lamoTRIgine [LaMICtal] 100 mg PO BID 07/25/18 06/16/19 Allergies Allergy/AdvReac Type Severity Reaction Status Date / Time codeine Allergy Rash/Hives/ Verified 06/16/19 14:00 Itching Review of Systems ROS Statement: Those systems with pertinent positive or pertinent negative responses have been documented in the HPI. ROS Other: All systems not noted in ROS Statement are negative. 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 History of Any Multi-Drug Resistant Organisms: None Reported Past Surgical History: Joint Replacement, Orthopedic Surgery Additional Past Surgical History / Comment(s): Left jaw surgery with plate. Past Anesthesia/Blood Transfusion Reactions: Postoperative Nausea & Vomiting (PONV) Past Psychological History: Anxiety, Depression, PTSD Smoking Status: Current every day smoker Past Alcohol Use History: None Reported Past Drug Use History: Marijuana - Past Family History Father Family Medical History: Fibromyalgia Additional Family Medical History / Comment(s): Depression, anxiety, 6 herniated disc in back Mother Additional Family Medical History / Comment(s): hip replacement General Exam Limitations: no limitations General appearance: alert, in no apparent distress Head exam: Present: atraumatic, normocephalic, normal inspection Eye exam: Present: normal appearance, PERRL, EOMI. Absent: scleral icterus, conjunctival injection, periorbital swelling ENT exam: Present: normal exam, normal oropharynx, mucous membranes moist, TM's normal bilaterally, normal external ear exam Neck exam: Present: normal inspection, full ROM. Absent: tenderness, meningismus, lymphadenopathy Respiratory exam: Present: normal lung sounds bilaterally. Absent: respiratory distress, wheezes, rales, rhonchi, stridor Cardiovascular Exam: Present: regular rate, normal rhythm, normal heart sounds. Absent: systolic murmur, diastolic murmur, rubs, gallop, clicks Neurological exam: Present: alert, oriented X3, CN II-XII intact, normal gait, other (GCS 15) Expanded Patient oriented to: Present: person, place, time Speech: Present: fluid speech Cranial nerves: EOM's Intact: Normal, Tongue Deviation: Normal, Nystagmus: Normal, Facial Sensation: Normal Cerebellar function: Finger to Nose: Normal Upper motor neuron: Pronator Drift: Normal Sensory exam: Upper Extremity Light Touch: Normal, Upper Extremity Pin Prick: Normal, Lower Extremity Light Touch: Normal, Lower Extremity Pin Prick: Normal Motor strength exam: RUE: 5, LUE: 5, RLE: 5, LLE: 5 Eye Response: (4) open spontaneously Motor Response: (6) obeys commands Verbal Response: (5) oriented [place] Total: 15 Course Vital Signs 06/16/19 06/16/19 06/16/19 13:31 14:33 15:57 Temperature 99.0 F 99.0 F Pulse Rate 104 H 87 Respiratory 16 20 18 Rate Blood Pressure 146/87 128/82 O2 Sat by Pulse 100 99 Oximetry Medical Decision Making - Medical Decision Making HPI and physical exam as documented. Patient woke up with this headache. There was no sudden onset. Patient has a history of migraines although this is so mewhat worse than normal. Neurologic exam was unremarkable. There are no focal neurologic deficits. Patient is very anxious upon presentation. Vitals are stable. Patient is afebrile. CBC and CMP are unremarkable. CT angiogram of the head was ordered which shows a normal [place]. No abnormal density to suggest an acute intracranial hemorrhage. Patient was given migraine cocktail. Before patient could be reevaluated he eloped from the emergency department by removing his own IV and leaving without telling any staff members. JESENIA Daniels does report that he stated he was feeling better when she repeated his vitals. - Lab Data Result diagrams: 06/16/19 14:05 06/16/19 14:05 Lab Results 06/16/19 06/16/19 06/16/19 Range/Units 14:05 14:05 14:05 WBC 6.9 (3.8-10.6) k/uL RBC 5.18 (4.30-5.90) m/uL Hgb 16.1 (13.0-17.5) gm/dL Hct 46.8 (39.0-53.0) % MCV 90.5 (80.0-100.0) fL MCH 31.0 (25.0-35.0) pg MCHC 34.3 (31.0-37.0) g/dL RDW 12.3 (11.5-15.5) % Plt Count 220 (150-450) k/uL Neutrophils % 69 % Lymphocytes % 23 % Monocytes % 4 % Eosinophils % 1 % Basophils % 1 % Neutrophils # 4.8 (1.3-7.7) k/uL Lymphocytes # 1.6 (1.0-4.8) k/uL Monocytes # 0.3 (0-1.0) k/uL Eosinophils # 0.1 (0-0.7) k/uL Basophils # 0.1 (0-0.2) k/uL PT 10.2 (9.0-12.0) sec INR 0.9 (<1.2) APTT 21.4 L (22.0-30.0) sec Sodium 142 (137-145) mmol/L Potassium 4.3 (3.5-5.1) mmol/L Chloride 107 (98-107) mmol/L Carbon Dioxide 24 (22-30) mmol/L Anion Gap 11 mmol/L BUN 15 (9-20) mg/dL Creatinine 0.91 (0.66-1.25) mg/dL Est GFR (CKD-EPI)AfAm >90 (>60 ml/min/1.73 sqM) Est GFR (CKD-EPI)NonAf >90 (>60 ml/min/1.73 sqM) Glucose 111 H (74-99) mg/dL Calcium 10.6 H (8.4-10.2) mg/dL Total Bilirubin 1.2 (0.2-1.3) mg/dL AST 48 (17-59) U/L ALT 41 (21-72) U/L Alkaline Phosphatase 110 (38-126) U/L Total Protein 9.3 H (6.3-8.2) g/dL Albumin 5.2 H (3.5-5.0) g/dL Disposition Clinical Impression: Headache Disposition: Left Against Medical Advice Is patient prescribed a controlled substance at d/c from ED?: No Referrals: Bernie Groves MD [Primary Care Provider] - 1-2 days Time of Disposition: 16:17
[2019-06-16 14:23] LABS: Basophils # (A) 0.1 k/uL (0-0.2); Basophils % (A) 1 %; Eosinophils # (A) 0.1 k/uL (0-0.7); Eosinophils % (A) 1 %; HCT 46.8 % (39.0-53.0); HGB 16.1 gm/dL (13.0-17.5); Lymphocytes # (A) 1.6 k/uL (1.0-4.8); Lymphocytes % (A) 23 %; MCHC 34.3 g/dL (31.0-37.0); MCV 90.5 fL (80.0-100.0); Mean Platelet Volume 6.7; Monocytes # (A) 0.3 k/uL (0-1.0); Monocytes % (A) 4 %; Neutrophils # (A) 4.8 k/uL (1.3-7.7); Neutrophils % (A) 69 %; Platelet Count 220 k/uL (150-450); RBC 5.18 m/uL (4.30-5.90); RDW 12.3 % (11.5-15.5); WBC 6.9 k/uL (3.8-10.6)
[2019-06-16 14:31] LABS: ALT 41 U/L (21-72); AST 48 U/L (17-59); African American GFR (CKD) >90 (>60 ml/min/1.73 sqM); Albumin 5.2 g/dL (3.5-5.0); Alkaline Phosphatase 110 U/L (38-126); Anion Gap 11 mmol/L; Blood Urea Nitrogen 15 mg/dL (9-20); Calcium 10.6 mg/dL (8.4-10.2); Carbon Dioxide 24 mmol/L (22-30); Chloride 107 mmol/L (98-107); Glucose 111 mg/dL (74-99); Sodium 142 mmol/L (137-145); Total Bilirubin 1.2 mg/dL (0.2-1.3); Total Protein 9.3 g/dL (6.3-8.2)
[2019-06-16 14:34] LABS: Potassium 4.3 mmol/L (3.5-5.1)
[2019-06-16 14:40] LABS: INR 0.9 (<1.2); Prothrombin Time 10.2 sec (9.0-12.0)
[2019-06-16 15:30] LABS: Partial Thromboplastin Time 21.4 sec (22.0-30.0)
--- NOTE | 2019-06-16 15:37 | CT ---
EXAMINATION TYPE: CT angio head DATE OF EXAM: 06/16/2019 COMPARISON: 07/24/2018 INDICATION: Headaches DLP: 1757.6 mGycm, Automated exposure control for dose reduction was used. CONTRAST: 100 mL Isovue-300 CT of the brain is performed utilizing 3 mm thick sections through the posterior fossa and 3 mm thick sections through the remaining calvarium. Study is performed within 24 hours of arrival to the hosp [facility]. Internal carotid arteries bifurcate into A1 and M1 segments. The anterior communicating artery appear s patent. The A2 segments are normal. Middle cerebral artery branches are unremarkable. Vertebral bas ilar system is normal. Posterior cerebral vasculature is unremarkable. Posterior communicating arteri es are not identified. No abnormal hyperdensity is present to suggest an acute intracranial hemorrhage. No mass lesion is evident. No acute infarcts are evident. Ventricles and sulci are appropriate for the patient age. Paranasal sinuses and mastoid air cells within the [id number] are clear. IMPRESSIONS: 1. Normal [place].
[2019-06-16] MEDS ORDERED: KETOROLAC 30 MG/ML 1 ML VIAL IVP STA (15:40)
[2019-06-16 15:58] VITALS: BP 128/82; PULSE 87; RESP 18
== END 2019-06-16 16:16 | disposition left against medical advice (07) ==
LOC: EC 13:30
DX: R51 Headache (principal); R11.0 Nausea; F41.9 Anxiety disorder, unspecified; F32.9 Major depressive disorder, single episode, unspecified; F43.10 Post-traumatic stress disorder, unspecified; F17.200 Nicotine dependence, unspecified, uncomplicated; Z86.69 Personal history of other diseases of the nervous system and sense organs; Z85.830 Personal history of malignant neoplasm of bone; Z96.698 Presence of other orthopedic joint implants; Z79.899 Other long term (current) drug therapy; Z88.5 Allergy status to narcotic agent
CPT/HCPCS: 36415; 80053; 85025; 85610; 85730; 70496; 99284; 96374; 96375 ×4; 96361; J2060; J1200; J1100; J2765; J1885; Q9967

== ENCOUNTER 2019-09-07 09:04 | Emergency (ER) | payer OTHER ==
[2019-09-07 09:07] VITALS: BP 158/87; PULSE 96; RESP 20; TEMP 98.7
[2019-09-07] MEDS ORDERED: HYDROcodone/APAP 10-325MG 1 EACH TAB PO ONE (09:21)
--- NOTE | 2019-09-07 09:24 | ED ---
Extremity Problem HPI - General Chief complaint: Extremity Problem,Nontraumatic Stated complaint: Left leg and arm pain Time Seen by Provider: 09/07/19 09:14 Source: patient, RN notes reviewed Mode of arrival: ambulatory Limitations: no limitations - History of Present Illness Initial comments: This a 33-year-old male presents emergency Department chief complaint left shoulder left leg pain. This is chronic in nature there is been no new injuries. Patient has a history of osteosarcoma with surgery. Patient states the pain just little worse than it usually last couple days but denies any trauma. Patient states he does not want a prescription for pain meds. Patient states this is a for some pain relief. Patient denies any recent fevers or ch ills no other complaints. - Related Data Home Medications Medication Instructions Recorded Confirmed FLUoxetine HCL [PROzac] 20 mg PO HS 07/25/18 06/16/19 lamoTRIgine [LaMICtal] 100 mg PO BID 07/25/18 06/16/19 Allergies Allergy/AdvReac Type Severity Reaction Status Date / Time codeine Allergy Rash/Hives/ Verified 06/16/19 14:00 Itching Review of Systems ROS Statement: Those systems with pertinent positive or pertinent negative responses have been documented in the HPI. ROS Other: All systems not noted in ROS Statement are negative. 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 History of Any Multi-Drug Resistant Organisms: None Reported Past Surgical History: Joint Replacement, Orthopedic Surgery Additional Past Surgical History / Comment(s): Left jaw surgery with plate. Past Anesthesia/Blood Transfusion Reactions: Postoperative Nausea & Vomiting (PONV) Past Psychological History: Anxiety, Depression, PTSD Smoking Status: Current every day smoker Past Alcohol Use History: None Reported Past Drug Use History: Marijuana - Past Family History Father Family Medical History: Fibromyalgia Additional Family Medical History / Comment(s): Depression, anxiety, 6 herniated disc in back Mother Additional Family Medical History / Comment(s): hip replacement General Exam Limitations: no limitations General appearance: alert, in no apparent distress Head exam: Present: atraumatic, normocephalic, normal inspection Respiratory exam: Present: normal lung sounds bilaterally. Absent: respiratory distress, wheezes, rales, rhonchi, stridor Cardiovascular Exam: Present: regular rate, normal rhythm, normal heart sounds. Absent: systolic murmur, diastolic murmur, rubs, gallop, clicks Extremities exam: Present: other (Full range of motion of her left leg neurovascular intact) Neurological exam: Present: alert, oriented X3, CN II-XII intact, reflexes normal. Absent: motor sensory deficit Course Vital Signs 09/07/19 09:04 Temperature 98.7 F Pulse Rate 96 Respiratory 20 Rate Blood Pressure 158/87 O2 Sat by Pulse 99 Oximetry Medical Decision Making - Medical Decision Making Patient has chronic pain issues related to osteosarcoma for surgery changes. Patient be given pain medication emergency department discharged in stable condition. Disposition Clinical Impression: Chronic pain in left shoulder, Chronic pain of left lower extremity Disposition: HOME SELF-CARE Condition: Stable Instructions (If sedation given, give patient instructions): Arthralgia (ED) Additional Instructions: Please return to the Emergency Department if symptoms worsen or any other concerns. Is patient prescribed a controlled substance at d/c from ED?: No Referrals: Bernie Groves MD [Primary Care Provider] - 1-2 days Time of Disposition: 09:24
== END 2019-09-07 09:35 | disposition home or self-care (01) ==
LOC: EC 09:04
DX: G89.29 Other chronic pain (principal); M25.512 Pain in left shoulder; M79.605 Pain in left leg; F32.9 Major depressive disorder, single episode, unspecified; F41.9 Anxiety disorder, unspecified; F43.10 Post-traumatic stress disorder, unspecified; F17.200 Nicotine dependence, unspecified, uncomplicated; Z88.5 Allergy status to narcotic agent; Z79.899 Other long term (current) drug therapy; Z85.830 Personal history of malignant neoplasm of bone; Z98.890 Other specified postprocedural states; Z82.61 Family history of arthritis
CPT/HCPCS: 99283

== ENCOUNTER 2019-10-09 13:33 | Emergency (ER) | payer OTHER ==
[2019-10-09 13:46] VITALS: BP 136/80; PULSE 79; TEMP 98.6
[2019-10-09] MEDS ORDERED: HYDROcodone/APAP 10-325MG 1 EACH TAB PO ONE (14:16)
--- NOTE | 2019-10-09 14:21 | ED ---
Upper Extremity HPI - General Chief Complaint: Extremity Injury, Upper Stated Complaint: Arm/leg pain Time Seen by Provider: 10/09/19 13:48 Source: patient, RN notes reviewed Mode of arrival: ambulatory Limitations: no limitations - History of Present Illness Initial Comments: 33-year-old male presents emergency Department chief complaint of left thumb l eft leg pain. Patient has chronic pain secondary to prior surgery from cancer. Patient states his pain is uncontrolled at this time. Patient used to be on chronic medications but does not take any current opiates. Patient states she cannot tolerate the pain anymore. No relief with Tylenol Motrin. - Related Data Home Medications Medication Instructions Recorded Confirmed FLUoxetine HCL [PROzac] 20 mg PO HS 07/25/18 06/16/19 lamoTRIgine [LaMICtal] 100 mg PO BID 07/25/18 06/16/19 Allergies Allergy/AdvReac Type Severity Reaction Status Date / Time codeine Allergy Rash/Hives/ Verified 06/16/19 14:00 Itching Review of Systems ROS Statement: Those systems with pertinent positive or pertinent negative responses have been documented in the HPI. ROS Other: All systems not noted in ROS Statement are negative. 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 History of Any Multi-Drug Resistant Organisms: None Reported Past Surgical History: Joint Replacement, Orthopedic Surgery Additional Past Surgical History / Comment(s): Left jaw surgery with plate. Past Anesthesia/Blood Transfusion Reactions: Postoperative Nausea & Vomiting (PONV) Past Psychological History: Anxiety, Bipolar, Depression, PTSD Smoking Status: Former smoker Past Alcohol Use History: None Reported Past Drug Use History: Marijuana - Past Family History Father Family Medical History: Fibromyalgia Additional Family Medical History / Comment(s): Depression, anxiety, 6 herniated disc in back Mother Additional Family Medical History / Comment(s): hip replacement General Exam Limitations: no limitations General appearance: alert, in no apparent distress Head exam: Present: atraumatic, normocephalic, normal inspection Eye exam: Present: normal appearance, PERRL, EOMI. Absent: scleral icterus, conjunctival injection, periorbital swelling Respiratory exam: Present: normal lung sounds bilaterally. Absent: respiratory distress, wheezes, rales, rhonchi, stridor Cardiovascular Exam: Present: regular rate, normal rhythm, normal heart sounds. Absent: systolic murmur, diastolic murmur, rubs, gallop, clicks Extremities exam: Present: other (Neurovascular Entex extremities, tenderness left humeral region left distal tib-fib) Course Vital Signs 10/09/19 13:44 Temperature 98.6 F Pulse Rate 79 Respiratory 18 Rate Blood Pressure 136/80 O2 Sat by Pulse 100 Oximetry Medical Decision Making - Medical Decision Making Patient has chronic pain will be provided pain control emergency department discharged in stable condition. Disposition Clinical Impression: Left arm pain, Left leg pain Disposition: HOME SELF-CARE Condition: Stable Instructions (If sedation given, give patient instructions): Chronic Pain (ED) Additional Instructions: Please return to the Emergency Department if symptoms worsen or any other concerns. Is patient prescribed a controlled substance at d/c from ED?: No Referrals: Bernie Groves MD [Primary Care Provider] - 1-2 days Time of Disposition: 14:21
[2019-10-09 14:33] VITALS: RESP 20
== END 2019-10-09 14:33 | disposition home or self-care (01) ==
LOC: EC 13:33
DX: M79.605 Pain in left leg (principal); M79.602 Pain in left arm; F41.9 Anxiety disorder, unspecified; F31.9 Bipolar disorder, unspecified; Z79.899 Other long term (current) drug therapy; Z88.5 Allergy status to narcotic agent; Z87.891 Personal history of nicotine dependence; Z85.831 Personal history of malignant neoplasm of soft tissue
CPT/HCPCS: 99283

== ENCOUNTER 2019-10-11 09:04 | Emergency (ER) | payer OTHER ==
[2019-10-11] MEDS ORDERED: IBUPROFEN 600 MG TAB PO STA (09:38)
--- NOTE | 2019-10-11 10:14 | XR ---
Left humerus HISTORY: Pain 2 views of left humerus submitted and correlated to CT scan dated 10/30/2016 The postprocedural changes status post bone grafting multiple surgical clips are again noted. Abnorma l articulation at the left shoulder shows a probable stable appearance. There is no evident fracture or dislocation. There are some small ossific densities along the shaft of the distal humerus similar to prior exam. IMPRESSION: Postop changes. If previous exams are available for comparison, an additional comparison can be made to assess for any interval changes.
[2019-10-11] MEDS ORDERED: HYDROcodone/APAP 5-325MG 1 EACH TAB PO STA (10:36)
--- NOTE | 2019-10-11 10:58 | ED ---
General Adult HPI - General Chief complaint: Extremity Problem,Nontraumatic Stated complaint: left arm/leg pain Time Seen by Provider: 10/11/19 09:22 Source: patient, RN notes reviewed, old records reviewed Mode of arrival: ambulatory Limitations: no limitations - History of Present Illness Initial comments: 33-year-old male with a past medical history of osteogenesis sarcoma presents to the emergency department for a chief complaint of left arm pain. Patient states this pain is chronic. Patient states that he is trying to get into pain management with Dr. Dyson but it will be 2 weeks. Patient states that he was taking Suboxone for his pain however stopped taking this because it does not work. Patient denies any injuries to the left arm. Denies any fevers or chills.Patient has no other complaints at this time including shortness of breath, chest pain, abdominal pain, nausea or vomiting, headache, or visual changes. - Related Data Home Medications Medication Instructions Recorded Confirmed FLUoxetine HCL [PROzac] 20 mg PO HS 07/25/18 06/16/19 lamoTRIgine [LaMICtal] 100 mg PO BID 07/25/18 06/16/19 Previous Rx's Medication Instructions Recorded HYDROcodone/APAP 5-325MG [Melba 1 tab PO Q6HR PRN #10 tab 10/11/19 5-325] Allergies Allergy/AdvReac Type Severity Reaction Status Date / Time codeine Allergy Rash/Hives/ Verified 10/11/19 09:09 Itching Review of Systems ROS Statement: Those systems with pertinent positive or pertinent negative responses have been documented in the HPI. ROS Other: All systems not noted in ROS Statement are negative. 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 History of Any Multi-Drug Resistant Organisms: None Reported Past Surgical History: Joint Replacement, Orthopedic Surgery Additional Past Surgical History / Comment(s): Left jaw surgery with plate. Past Anesthesia/Blood Transfusion Reactions: Postoperative Nausea & Vomiting (PONV) Past Psychological History: Anxiety, Bipolar, Depression, PTSD Smoking Status: Former smoker Past Alcohol Use History: None Reported Past Drug Use History: Marijuana - Past Family History Father Family Medical History: Fibromyalgia Additional Family Medical History / Comment(s): Depression, anxiety, 6 herniated disc in back Mother Additional Family Medical History / Comment(s): hip replacement General Exam Limitations: no limitations General appearance: alert, in no apparent distress Head exam: Present: atraumatic, normocephalic, normal inspection Eye exam: Present: normal appearance, PERRL, EOMI. Absent: scleral icterus, conjunctival injection, periorbital swelling ENT exam: Present: normal exam, mucous membranes moist Neck exam: Present: normal inspection, full ROM. Absent: tenderness, meningismu s, lymphadenopathy Respiratory exam: Present: normal lung sounds bilaterally. Absent: respiratory distress, wheezes, rales, rhonchi, stridor Cardiovascular Exam: Present: regular rate, normal rhythm, normal heart sounds. Absent: systolic murmur, diastolic murmur, rubs, gallop, clicks Extremities exam: Present: full ROM (Full range of motion of the left arm.), tenderness (Generalized tenderness to the anterior humeral area.), normal capillary refill (Capillary refill less than 2 seconds, radial pulse 2+.), other (Sensation intact in the left upper extremity. Vp Production strength 5 out of 5.). Absent: pedal edema, joint swelling, calf tenderness Course Vital Signs 10/11/19 09:06 Pulse Rate 104 H Respiratory 16 Rate Blood Pressure 140/89 O2 Sat by Pulse 100 Oximetry Medical Decision Making - Medical Decision Making Vitals are stable. Physical exam reveals a chronically deformed left upper extremity secondary to surgical procedure. Neurovascular status intact. Patient states this pain is chronic but worsening. X-ray of the left humerus shows postop changes. No evident fracture or dislocation there are some small ossific densities on the shaft of the distal humerus similar to the prior exam. I discussed this case with Dr. Vang. She recommends giving a three-day supply of Melba and warning patient that he will not have any other prescriptions through the ER. He needs to follow up with pain management for further prescriptions. Patient is in agreement with this. I discussed not driving or operating machinery while taking Melba. Disposition Clinical Impression: Chronic arm pain Disposition: HOME SELF-CARE Condition: Good Instructions (If sedation given, give patient instructions): Arm Pain (ED) Additional Instructions: Please take Motrin for pain. If pain is severe take Melba. Do not drive or operate machinery while taking this. As discussed we will not be able to give any further prescriptions of Melba through the emergency department. Follow-up with primary care in 1-2 days. Return to the emergency department if you have any worsening symptoms. Prescriptions: HYDROcodone/APAP 5-325MG [Melba 5-325] 1 tab PO Q6HR PRN #10 tab PRN Reason: Pain Is patient prescribed a controlled substance at d/c from ED?: Yes When asked, does pt state using other controlled substances?: No If prescribed controlled substance>3 days was MAPS reviewed?: Prescribed <3 Days If opioid is for acute pain is fill amount 7 days or less?: Yes If Rx opioid, was Start Talking consent form obtained?: Yes Referrals: Bernie Groves MD [Primary Care Provider] - 1-2 days Time of Disposition: 10:55
[2019-10-11 11:22] VITALS: BP 124/80; PULSE 71; RESP 15; TEMP 97.8
== END 2019-10-11 11:27 | disposition home or self-care (01) ==
LOC: EC 09:04
DX: M79.602 Pain in left arm (principal); G89.29 Other chronic pain; M85.821 Other specified disorders of bone density and structure, right upper arm; F31.9 Bipolar disorder, unspecified; F41.9 Anxiety disorder, unspecified; Z87.891 Personal history of nicotine dependence; Z88.5 Allergy status to narcotic agent; Z79.899 Other long term (current) drug therapy; Z85.830 Personal history of malignant neoplasm of bone; Z98.890 Other specified postprocedural states; Z96.698 Presence of other orthopedic joint implants; Z82.69 Family history of other diseases of the musculoskeletal system and connective tissue
CPT/HCPCS: 99284

== ENCOUNTER 2019-10-24 14:26 | Emergency (ER) | payer OTHER ==
[2019-10-24 14:35] VITALS: BP 145/81; PULSE 93; RESP 18; TEMP 99.2
--- NOTE | 2019-10-24 15:22 | ED ---
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 Patient states he has a scheduled plan with the pain clinic on 11/06/2019. Blood in the meantime he states he is unable to control his pain. He states that the pain has not changed from his chronic pain that is experienced on and off since age of 7. Patient denies any extremity swelling coolness pallor. Patient denies any fevers. Patient has a chest pain shortness of breath jaw pain. She states that when the weather changes since it was cold and just became warmer that this tends to increase the pain acutely. 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 patient has no other complaints upon arrival patient appears well and laboratory no signs of acute distress. - Related Data Home Medications Medication Instructions Recorded Confirmed FLUoxetine HCL [PROzac] 20 mg PO HS 07/25/18 06/16/19 lamoTRIgine [LaMICtal] 100 mg PO BID 07/25/18 06/16/19 Previous Rx's Medication Instructions Recorded HYDROcodone/APAP 5-325MG [[place] 1 tab PO Q6HR PRN #10 tab 10/11/19 5-325] HYDROcodone/APAP 5-325MG [[place] 1 tab PO Q6HR PRN 3 Days #12 tab 10/24/19 5-325] Allergies Allergy/AdvReac Type Severity Reaction Status Date / Time codeine Allergy Rash/Hives/ Verified 10/11/19 09:09 Itching Review of Systems ROS Statement: Those systems with pertinent positive or pertinent negative responses have been documented in the HPI. ROS Other: All systems not noted in ROS Statement are negative. 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 History of Any Multi-Drug Resistant Organisms: None Reported Past Surgical History: Joint Replacement, Orthopedic Surgery Additional Past Surgical History / Comment(s): Left jaw surgery with plate. Past Anesthesia/Blood Transfusion Reactions: Postoperative Nausea & Vomiting (PONV) Past Psychological History: Anxiety, Bipolar, Depression, PTSD Smoking Status: Former smoker Past Alcohol Use History: None Reported Past Drug Use History: Marijuana - Past Family History Father Family Medical History: Fibromyalgia Additional Family Medical History / Comment(s): Depression, anxiety, 6 herniated disc in back Mother Additional Family Medical History / Comment(s): hip replacement General Exam - General Exam Comments Initial Comments: General: The patient is awake and alert, in no distress, and does not appear acutely ill. Eye: Pupils are equal, round and reactive to light, extra-ocular movements are intact. No nystagmus. There is normal conjunctiva bilaterally. No signs of icterus. Cardiovascular: There is a regular rate and rhythm. No murmur, rub or gallop is appreciated. Respiratory: Lungs are clear to auscultation, respirations are non-labored, breath sounds are equal. No wheezes, stridor, rales, or rhonchi. Musculoskeletal: Atrophy of the left upper arm, decreased muscle tone with decreased over head ROM (baseline per patient) no redness, no welling. trophy of the left leg. Normal ROM at knees and ankles b/l. Strength 5/5 of the LE and of the wrists b/l. Sensation intact. Radial and DP pulses equal bilaterally 2+. Neurological: A&O x 3. CN II-XII intact, There are no obvious motor or sensory deficits. Coordination appears grossly intact. Speech is normal. Skin: Skin is warm and dry and no rashes or lesions are noted. Psychiatric: Cooperative, appropriate mood & affect, normal judgment. Limitations: no limitations Course Vital Signs 10/24/19 10/24/19 14:31 15:38 Temperature 99.2 F 99.2 F Pulse Rate 93 93 Respiratory 18 18 Rate Blood Pressure 145/81 145/81 O2 Sat by Pulse 99 99 Oximetry Medical Decision Making - Medical Decision Making 33-year-old male presenting for chronic left arm and left leg pain denies any significant change states that increases with weather changes. Patient is neurovascularly intact Patient was provided prescription for [place], discussed that this would not be provided on regular basis on ER and educated on risk of opiod addiction/overdose/. Patient has understanding was discharged appearing well after discussing case with Dr. Gomez Disposition Clinical Impression: Chronic pain Disposition: HOME SELF-CARE Condition: Good Instructions (If sedation given, give patient instructions): Chronic Pain (ED) Additional Instructions: Please use medication as discussed. Please follow-up with family doctor in the next 2 day, follow-up with pain management clinic as scheduled next month. Please return to emergency room if the symptoms increase or worsen or for any other concerns. Prescriptions: HYDROcodone/APAP 5-325MG [[place] 5-325] 1 tab PO Q6HR PRN 3 Days #12 tab PRN Reason: Pain Is patient prescribed a controlled substance at d/c from ED?: Yes When asked, does pt state using other controlled substances?: No If prescribed controlled substance>3 days was MAPS reviewed?: Prescribed <3 Days If opioid is for acute pain is fill amount 7 days or less?: Yes If Rx opioid, was Start Talking consent form obtained?: Yes Referrals: Bernie Groves MD [Primary Care Provider] - 1-2 days Time of Disposition: 15:22
== END 2019-10-24 15:30 | disposition home or self-care (01) ==
LOC: EC 14:26
DX: G89.29 Other chronic pain (principal); M79.602 Pain in left arm; M79.605 Pain in left leg; R07.9 Chest pain, unspecified; R06.02 Shortness of breath; R68.84 Jaw pain; F32.9 Major depressive disorder, single episode, unspecified; F43.10 Post-traumatic stress disorder, unspecified; Z87.891 Personal history of nicotine dependence; Z85.830 Personal history of malignant neoplasm of bone; Z96.698 Presence of other orthopedic joint implants; Z98.890 Other specified postprocedural states; Z79.899 Other long term (current) drug therapy; Z88.5 Allergy status to narcotic agent
CPT/HCPCS: 99283

== ENCOUNTER 2019-10-27 01:56 | Emergency (ER) | payer OTHER ==
[2019-10-27 02:05] VITALS: BP 132/73; PULSE 93; RESP 18; TEMP 98.5
[2019-10-27] MEDS ORDERED: HYDROcodone/APAP 10-325MG 1 EACH TAB PO ONE (02:37)
[2019-10-27] MEDS ORDERED: HYDROcodone/APAP 5-325MG 1 EACH TAB PO STA (02:46)
--- NOTE | 2019-10-27 03:02 | ED ---
Upper Extremity HPI - General Chief Complaint: Extremity Injury, Upper Stated Complaint: Left arm pain Time Seen by Provider: 10/27/19 02:06 Source: patient Mode of arrival: ambulatory Limitations: no limitations - History of Present Illness Initial Comments: Patient is a 33-year-old male with history of osteosarcoma presenting to emergency Department with a chief complaint of arm pain. Patient states he was in a pain contract with a pain specialist and use Suboxone. Patient reports he is stop seeing the pain specialist is currently scheduled to see another one less than 2 weeks from today. Patient reports he has not been taking any of his normal medications denies pain is increased. Patient reports he is had osteosarcoma and the left she were wrist which she had replaced with his fibula. States he has chronic pain disorder. States he was in the ED in the last 2 weeks and he was prescribed [place]. He is returning for refill of the [place]. - Related Data Home Medications Medication Instructions Recorded Confirmed FLUoxetine HCL [PROzac] 20 mg PO HS 07/25/18 06/16/19 lamoTRIgine [LaMICtal] 100 mg PO BID 07/25/18 06/16/19 Previous Rx's Medication Instructions Recorded HYDROcodone/APAP 5-325MG [[place] 1 tab PO Q6HR PRN #10 tab 10/11/19 5-325] HYDROcodone/APAP 5-325MG [[place] 1 tab PO Q6HR PRN 3 Days #12 tab 10/24/19 5-325] Allergies Allergy/AdvReac Type Severity Reaction Status Date / Time codeine Allergy Rash/Hives/ Verified 10/11/19 09:09 Itching Review of Systems ROS Statement: Those systems with pertinent positive or pertinent negative responses have been documented in the HPI. ROS Other: All systems not noted in ROS Statement are negative. 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 History of Any Multi-Drug Resistant Organisms: None Reported Past Surgical History: Joint Replacement, Orthopedic Surgery Additional Past Surgical History / Comment(s): Left jaw surgery with plate. Past Anesthesia/Blood Transfusion Reactions: Postoperative Nausea & Vomiting (PONV) Past Psychological History: Anxiety, Bipolar, Depression, PTSD Smoking Status: Former smoker Past Alcohol Use History: None Reported Past Drug Use History: Marijuana - Past Family History Father Family Medical History: Fibromyalgia Additional Family Medical History / Comment(s): Depression, anxiety, 6 herniated disc in back Mother Additional Family Medical History / Comment(s): hip replacement General Exam Limitations: no limitations General appearance: alert, in no apparent distress Head exam: Present: atraumatic, normocephalic, normal inspection Eye exam: Present: normal appearance Pupils: Present: normal accommodation Neck exam: Present: normal inspection, full ROM Respiratory exam: Present: normal lung sounds bilaterally Cardiovascular Exam: Present: regular rate, normal rhythm, normal heart sounds Extremities exam: Present: tenderness (Chronic pain), normal capillary refill. Absent: normal inspection (Deformity in the left upper extremity due to previous surgery.) Back exam: Present: normal inspection, full ROM Neurological exam: Present: alert, oriented X3 Psychiatric exam: Present: normal affect, normal mood Skin exam: Present: warm, dry, intact, normal color Course Vital Signs 10/27/19 01:59 Temperature 98.5 F Pulse Rate 93 Respiratory 18 Rate Blood Pressure 132/73 O2 Sat by Pulse 98 Oximetry Medical Decision Making - Medical Decision Making Patient is a 34-year-old male with history of a sister, presenting to the emergency department with a chief complaint of arm pain. Patient patient always has left arm pain due to a previous surgery. He is in the ED because he was recently prescribed [place] for a three-day period. patient is requesting [place] refill until he is able to see a pain specialist in less than 2 weeks. I gave the patient is single dose of [place] in the ED. Patient will not be discharged with pain in her chronic medications. Patient is exhibiting drug-seeking behavior. Patient advised to follow-up primary care. Case discussed with physician. Disposition Clinical Impression: Left upper arm pain, Drug-seeking behavior Disposition: HOME SELF-CARE Condition: Stable Instructions (If sedation given, give patient instructions): Arm Pain (ED) Additional Instructions: Please follow with the pain specialist. Alternate between Tylenol and Motrin for pain control. Return to emergency department if symptoms worsen. Is patient prescribed a controlled substance at d/c from ED?: No Referrals: Bernie Groves MD [Primary Care Provider] - 1-2 days Time of Disposition: 03:02
== END 2019-10-27 03:25 | disposition home or self-care (01) ==
LOC: EC 01:56
DX: M79.622 Pain in left upper arm (principal); Z76.5 Malingerer [conscious simulation]; G89.29 Other chronic pain; M21.822 Other specified acquired deformities of left upper arm; M79.602 Pain in left arm; G62.9 Polyneuropathy, unspecified; F31.9 Bipolar disorder, unspecified; F41.9 Anxiety disorder, unspecified; Z87.891 Personal history of nicotine dependence; Z88.5 Allergy status to narcotic agent; Z79.899 Other long term (current) drug therapy; Z85.830 Personal history of malignant neoplasm of bone; Z96.698 Presence of other orthopedic joint implants; Z98.890 Other specified postprocedural states; Z82.69 Family history of other diseases of the musculoskeletal system and connective tissue
CPT/HCPCS: 99283

== ENCOUNTER 2019-11-03 17:29 | Emergency (ER) | payer OTHER ==
[2019-11-03 18:01] VITALS: BP 120/74; PULSE 77; RESP 18; TEMP 97.8
[2019-11-03] MEDS ORDERED: HYDROcodone/APAP 5-325MG 1 EACH TAB PO STA (19:53)
--- NOTE | 2019-11-03 19:57 | ED ---
Recheck HPI - General Chief Complaint: Recheck/Abnormal Lab/Rx Stated Complaint: Left arm pain Time Seen by Provider: 11/03/19 19:34 Source: patient Mode of arrival: ambulatory Limitations: no limitations - History of Present Illness Initial Comments: Patient is a 34-year-old male presenting to emergency Department with complaints of left arm pain. Patient states he has history of osteogenic sarcoma of the left arm as a child and has been having chronic pain since. Patient states he used to work with the pain specialist but they dropped him secondary to his insurance. He states he has an appointment with a new pain specialist on Thursday but is requesting pain medication. This is patient's fourth visit to the ER in the past month. He denies having fever, chills. He denies any new injuries or trauma to his arm. He has no other complaints at this time. Upon arrival to the ER, his vital signs are stable. - Related Data Home Medications Medication Instructions Recorded Confirmed FLUoxetine HCL [PROzac] 20 mg PO HS 07/25/18 06/16/19 lamoTRIgine [LaMICtal] 100 mg PO BID 07/25/18 06/16/19 Previous Rx's Medication Instructions Recorded HYDROcodone/APAP 5-325MG [[place] 1 tab PO Q6HR PRN #10 tab 10/11/19 5-325] HYDROcodone/APAP 5-325MG [[place] 1 tab PO Q6HR PRN 3 Days #12 tab 10/24/19 5-325] Allergies Allergy/AdvReac Type Severity Reaction Status Date / Time codeine Allergy Rash/Hives/ Verified 11/03/19 17:58 Itching Review of Systems ROS Statement: Those systems with pertinent positive or pertinent negative responses have been documented in the HPI. ROS Other: All systems not noted in ROS Statement are negative. 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 History of Any Multi-Drug Resistant Organisms: None Reported Past Surgical History: Joint Replacement, Orthopedic Surgery Additional Past Surgical History / Comment(s): Left jaw surgery with plate. Past Anesthesia/Blood Transfusion Reactions: Postoperative Nausea & Vomiting (PONV) Past Psychological History: Anxiety, Bipolar, Depression, PTSD Smoking Status: Former smoker Past Alcohol Use History: None Reported Past Drug Use History: Marijuana - Past Family History Father Family Medical History: Fibromyalgia Additional Family Medical History / Comment(s): Depression, anxiety, 6 herniated disc in back Mother Additional Family Medical History / Comment(s): hip replacement General Exam - General Exam Comments Initial Comments: GENERAL: Well-appearing, well-nourished and in no acute distress. HEAD: Atraumatic, normocephalic. EYES: Pupils equal round and reactive to light, extraocular movements intact, sclera anicteric, conjunctiva are normal. ENT: Moist mucous membranes. NECK: Normal range of motion, supple without lymphadenopathy or JVD. LUNGS: Breath sounds clear to auscultation bilaterally and equal. No wheezes rales or rhonchi. HEART: Regular rate and rhythm without murmurs, rubs or gallops. ABDOMEN: Soft, nontender, normoactive bowel sounds. No guarding, no rebound. No masses appreciated. : Deferred EXTREMITIES: Patient has chronic deformities of the left upper arm. Patient has decreased range of motion of the left shoulder secondary to his previous surgeries. This is normal for him. His neurovascular intact. NEUROLOGICAL: Normal speech, normal gait. PSYCH: Normal mood, normal affect. SKIN: Warm, Dry, normal turgor, no rashes. Patient has a visable needle track cruz[place] and small bruise in the left antecubital space. Limitations: no limitations Course Vital Signs 11/03/19 17:58 Temperature 97.8 F Pulse Rate 77 Respiratory 18 Rate Blood Pressure 120/74 O2 Sat by Pulse 98 Oximetry Medical Decision Making - Medical Decision Making Patient is a 34-year-old male presenting with chronic left arm pain. This patient's fourth visit in the past few weeks for pain medicine. He states he has an appointment with a pain specialist on Thursday. Vital signs are stable, no signs of infection. Patient does have a visible track [place] on his left antecubital space. I discussed with patient that I will not give him a prescription for pain medicine. He'll be given one tablet of [place] here. He is to follow-up with his pain specialist. We also discussed the patient not return to the ER requesting pain medicine as he will no longer get any medicine. Patient is agreement with this. He is stable for discharge. Case discussed with Dr. barragan. Disposition Clinical Impression: Encounter for medication refill, Chronic pain Disposition: HOME SELF-CARE Condition: Stable Instructions (If sedation given, give patient instructions): Arm Pain (ED) Additional Instructions: Please return to the Emergency Department if symptoms worsen or any other concerns. Follow-up with pain specialist on Thursday. Is patient prescribed a controlled substance at d/c from ED?: No Referrals: Bernie Groves MD [Primary Care Provider] - 1-2 days
== END 2019-11-03 20:07 | disposition home or self-care (01) ==
LOC: EC 17:29
DX: G89.29 Other chronic pain (principal); M79.602 Pain in left arm; Z76.0 Encounter for issue of repeat prescription; S50.12XA Contusion of left forearm, initial encounter; M21.822 Other specified acquired deformities of left upper arm; F31.9 Bipolar disorder, unspecified; F41.9 Anxiety disorder, unspecified; Z88.5 Allergy status to narcotic agent; Z79.899 Other long term (current) drug therapy; Z85.830 Personal history of malignant neoplasm of bone; Z96.698 Presence of other orthopedic joint implants; X58.XXXA Exposure to other specified factors, initial encounter
CPT/HCPCS: 99283

== ENCOUNTER 2019-11-06 | Emergency (ER) | payer OTHER | END 2019-11-06 20:12 | disposition home or self-care (01) | CPT/HCPCS: 99283 ==

== ENCOUNTER 2019-11-21 23:38 | Emergency (ER) | payer OTHER ==
[2019-11-21 23:43] VITALS: BP 147/77; PULSE 94; TEMP 98
[2019-11-21] MEDS ORDERED: HYDROmorphone 1 MG/ML 1 ML SYRINGE IM STA (23:52)
--- NOTE | 2019-11-21 23:56 | ED ---
Recheck HPI - General Chief Complaint: Extremity Problem,Nontraumatic Stated Complaint: L arm/leg pain Time Seen by Provider: 11/21/19 23:43 Source: patient, RN notes reviewed, old records reviewed Mode of arrival: ambulatory Limitations: no limitations - History of Present Illness Initial Comments: This is a 34-year-old male he presents today for evaluation regards to left arm pain. Patient has a long history of pain in that left arm with multiple different forms of arthritis, postoperative pain surgical pain are related to tumor as a child. Multiple surgeries with bone transplant. Patient has continued left eye pain currently no other complaints. 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 Complaint: medication refill request -: days(s) Returns Today for: request for prescription, persistent/worsening pain related to initial visit Symptoms Since Prior Visit: worsening pain Context: ran out of medication Associated Symptoms: none Treatments Prior to Arrival: Given Pain Meds on - Related Data Home Medications Medication Instructions Recorded Confirmed FLUoxetine HCL [PROzac] 20 mg PO HS 07/25/18 06/16/19 lamoTRIgine [LaMIC[place]] 100 mg PO BID 07/25/18 06/16/19 Previous Rx's Medication Instructions Recorded HYDROcodone/APAP 5-325MG [[place] 1 tab PO Q6HR PRN #10 tab 10/11/19 5-325] HYDROcodone/APAP 5-325MG [[place] 1 tab PO Q6HR PRN 3 Days #12 tab 10/24/19 5-325] HYDROcodone/APAP 5-325MG [[place] 1 tab PO Q6HR PRN #12 tab 11/21/19 5-325] Allergies Allergy/AdvReac Type Severity Reaction Status Date / Time codeine Allergy Rash/Hives/ Verified 11/03/19 17:58 Itching Review of Systems ROS Statement: Those systems with pertinent positive or pertinent negative responses have been documented in the HPI. ROS Other: All systems not noted in ROS Statement are negative. 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 History of Any Multi-Drug Resistant Organisms: None Reported Past Surgical History: Joint Replacement, Orthopedic Surgery Additional Past Surgical History / Comment(s): Left jaw surgery with plate. Past Anesthesia/Blood Transfusion Reactions: Postoperative Nausea & Vomiting (PONV) Past Psychological History: Anxiety, Bipolar, Depression, PTSD Smoking Status: Former smoker Past Alcohol Use History: None Reported Past Drug Use History: Marijuana - Past Family History Father Family Medical History: Fibromyalgia Additional Family Medical History / Comment(s): Depression, anxiety, 6 herniated disc in back Mother Additional Family Medical History / Comment(s): hip replacement General Exam Limitations: no limitations General appearance: alert, in no apparent distress Head exam: Present: atraumatic, normocephalic, normal inspection Eye exam: Present: normal appearance, PERRL, EOMI. Absent: scleral icterus, conjunctival injection, periorbital swelling ENT exam: Present: normal exam, mucous membranes moist Neck exam: Present: normal inspection. Absent: tenderness, meningismus, lymphadenopathy Respiratory exam: Present: normal lung sounds bilaterally. Absent: respiratory distress, wheezes, rales, rhonchi, stridor Cardiovascular Exam: Present: regular rate, normal rhythm, normal heart sounds. Absent: systolic murmur, diastolic murmur, rubs, gallop, clicks GI/Abdominal exam: Present: soft, normal bowel sounds. Absent: distended, tenderness, guarding, rebound, rigid Extremities exam: Present: normal inspection, full ROM, normal capillary refill. Absent: tenderness, pedal edema, joint swelling, calf tenderness Back exam: Present: normal inspection Neurological exam: Present: alert, oriented X3, CN II-XII intact Psychiatric exam: Present: normal affect, normal mood Skin exam: Present: warm, dry, intact, normal color. Absent: rash Course Vital Signs 11/21/19 11/22/19 23:40 00:02 Temperature 98 F Pulse Rate 94 Respiratory 18 16 Rate Blood Pressure 147/77 O2 Sat by Pulse 100 Oximetry - Reevaluation(s) Reevaluation #1: 11/22/19 00:12 Medical records reviewed Medical Decision Making - Medical Decision Making 34 male for medication refill secondary to chronic pain and pain management, patient will be discharged home given a few days of pain control Disposition Clinical Impression: Encounter for medication refill, Chronic pain, Left upper arm pain Disposition: HOME SELF-CARE Condition: Good Instructions (If sedation given, give patient instructions): Chronic Pain (ED), Medicine Refill (ED) Prescriptions: HYDROcodone/APAP 5-325MG [[place] 5-325] 1 tab PO Q6HR PRN #12 tab PRN Reason: Pain Is patient prescribed a controlled substance at d/c from ED?: Yes When asked, does pt state using other controlled substances?: Yes If prescribed controlled substance>3 days was MAPS reviewed?: Prescribed <3 Days If Rx opioid, was Start Talking consent form obtained?: Yes Referrals: Bernie Groves MD [Primary Care Provider] - 1-2 days
[2019-11-22 00:03] VITALS: RESP 16
== END 2019-11-22 00:02 | disposition home or self-care (01) ==
LOC: EC 23:38
DX: G89.29 Other chronic pain (principal); M79.622 Pain in left upper arm; H57.12 Ocular pain, left eye; Z76.0 Encounter for issue of repeat prescription; F41.9 Anxiety disorder, unspecified; F31.9 Bipolar disorder, unspecified; Z79.899 Other long term (current) drug therapy; Z88.5 Allergy status to narcotic agent; Z87.891 Personal history of nicotine dependence; Z85.830 Personal history of malignant neoplasm of bone; Z98.890 Other specified postprocedural states; M19.90 Unspecified osteoarthritis, unspecified site; Z94.6 Bone transplant status
CPT/HCPCS: 99283; 96372; J1170

== ENCOUNTER 2019-12-25 06:35 | Emergency (ER) | payer OTHER ==
[2019-12-25 06:44] VITALS: BP 130/82; PULSE 74; RESP 18; TEMP 97.9
--- NOTE | 2019-12-25 07:08 | ED ---
Extremity Problem HPI - General Chief complaint: Extremity Problem,Nontraumatic Stated complaint: Pain in L arm and hip Time Seen by Provider: 12/25/19 06:47 Source: patient, RN notes reviewed, old records reviewed Mode of arrival: ambulatory Limitations: no limitations - History of Present Illness Initial comments: Keven is a 34-year-old male presents for in terms they will chief complaint chronic pain over his left arm and left hip and leg. Patient reports he's had chronic pain for many years since he was 21 years old after having surgery replacing his humerus that his ability. Patient reports that he is supposed to follow-up with pain management however his appointments have been canceled due to the coated pandemic. Patient reports that he is unable to sleep well at night due to the pain. Patient denies any new skin changes OR trauma. He reports chronic paresthesias on the left hand and arm. He denies any other significant complaints. - Related Data Home Medications Medication Instructions Recorded Confirmed FLUoxetine HCL [PROzac] 20 mg PO HS 07/25/18 06/16/19 lamoTRIgine [LaMICtal] 100 mg PO BID 07/25/18 06/16/19 Previous Rx's Medication Instructions Recorded HYDROcodone/APAP 5-325MG [Gaines 1 tab PO Q6HR PRN #10 tab 10/11/19 5-325] HYDROcodone/APAP 5-325MG [Gaines 1 tab PO Q6HR PRN 3 Days #12 tab 10/24/19 5-325] HYDROcodone/APAP 5-325MG [Gaines 1 tab PO Q6HR PRN #12 tab 11/21/19 5-325] HYDROcodone/APAP 5-325MG [Gaines 1 tab PO Q6HR PRN #10 tab 12/25/19 5-325] Allergies Allergy/AdvReac Type Severity Reaction Status Date / Time codeine Allergy Rash/Hives/ Verified 11/03/19 17:58 Itching Review of Systems ROS Statement: Those systems with pertinent positive or pertinent negative responses have been documented in the HPI. ROS Other: All systems not noted in ROS Statement are negative. 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 History of Any Multi-Drug Resistant Organisms: None Reported Past Surgical History: Joint Replacement, Orthopedic Surgery Additional Past Surgical History / Comment(s): Left jaw surgery with plate. Past Anesthesia/Blood Transfusion Reactions: Postoperative Nausea & Vomiting (PONV) Past Psychological History: Anxiety, Bipolar, Depression, PTSD Smoking Status: Former smoker Past Alcohol Use History: None Reported Past Drug Use History: Marijuana - Past Family History Father Family Medical History: Fibromyalgia Additional Family Medical History / Comment(s): Depression, anxiety, 6 herniated disc in back Mother Additional Family Medical History / Comment(s): hip replacement General Exam - General Exam Comments Initial Comments: 34-year-old male. Alert and oriented. No distress. Limitations: no limitations General appearance: alert, in no apparent distress Head exam: Present: atraumatic, normocephalic, normal inspection Eye exam: Present: normal appearance, PERRL, EOMI. Absent: scleral icterus, conjunctival injection, periorbital swelling ENT exam: Present: normal exam, mucous membranes moist Neck exam: Present: normal inspection. Absent: tenderness, meningismus, lymphadenopathy Respiratory exam: Present: normal lung sounds bilaterally. Absent: respiratory distress, wheezes, rales, rhonchi, stridor Cardiovascular Exam: Present: regular rate, normal rhythm, normal heart sounds. Absent: systolic murmur, diastolic murmur, rubs, gallop, clicks GI/Abdominal exam: Present: soft, normal bowel sounds. Absent: distended, tenderness, guarding, rebound, rigid Extremities exam: Present: normal inspection, full ROM, normal capillary refill. Absent: tenderness, pedal edema, joint swelling, calf tenderness Left Shoulder Exam: Present: full ROM, tenderness (Evidence of previous scarring from multiple surgeries over the left shoulder arm. Skin changes. Patient is pain with range of motion of the head.). Absent: normal inspection, swelling Upper Arm exam: Present: normal inspection, full ROM Elbow exam: Present: normal inspection, full ROM Forearm Wrist exam: Present: normal inspection, full ROM Back exam: Present: normal inspection Neurological exam: Present: alert, oriented X3, CN II-XII intact Psychiatric exam: Present: normal affect, normal mood Skin exam: Present: warm, dry, intact, normal color. Absent: rash Course Vital Signs 12/25/19 06:40 Temperature 97.9 F Pulse Rate 74 Respiratory 18 Rate Blood Pressure 130/82 O2 Sat by Pulse 98 Oximetry Medical Decision Making - Medical Decision Making 34-year-old male presents emergency Department chief complaint chronic arm and leg pain. Patient reports he is unable see pain management this time due to Coumadin crisis has had his appointments canceled multiple times. Patient states that he is unable sleep well. Discussed that time a short course of pain medicine to be given during the COVID pandemic crisis from the emergency department that he needs follow-up. He does report that he has an appointment upcoming in the middle of this month for pain management. Patient is agreeable to treatment plan will comply. Return parameters were discussed. Disposition Clinical Impression: Chronic pain of left upper extremity Disposition: HOME SELF-CARE Condition: Good Instructions (If sedation given, give patient instructions): Arm Pain (ED) Additional Instructions: Patient is follow-up with chronic arm pain with design painter. Using the prescribed pain medication sparingly. Return to ED if any alarming signs or symptoms occur. Prescriptions: HYDROcodone/APAP 5-325MG [Gaines 5-325] 1 tab PO Q6HR PRN #10 tab PRN Reason: Pain Is patient prescribed a controlled substance at d/c from ED?: Yes If prescribed controlled substance>3 days was MAPS reviewed?: Prescribed <3 Days If opioid is for acute pain is fill amount 7 days or less?: Yes If Rx opioid, was Start Talking consent form obtained?: Yes Referrals: Bernie Grovse MD [Primary Care Provider] - 1-2 days Time of Disposition: 07:04
== END 2019-12-25 07:24 | disposition home or self-care (01) ==
LOC: EC 06:35
DX: G89.29 Other chronic pain (principal); M25.552 Pain in left hip; M79.602 Pain in left arm; F31.9 Bipolar disorder, unspecified; F43.10 Post-traumatic stress disorder, unspecified; Z79.899 Other long term (current) drug therapy; Z98.890 Other specified postprocedural states; Z88.5 Allergy status to narcotic agent; Z87.891 Personal history of nicotine dependence; Z85.830 Personal history of malignant neoplasm of bone
CPT/HCPCS: 99283

== ENCOUNTER 2020-01-13 05:17 | Emergency (ER) | payer OTHER ==
[2020-01-13 05:23] VITALS: BP 117/77; PULSE 112; RESP 22; TEMP 98.2
--- NOTE | 2020-01-13 05:50 | ED ---
General Adult HPI - General Chief complaint: Extremity Injury, Upper Stated complaint: Left arm pain, left leg pain Time Seen by Provider: 01/13/20 05:24 Source: patient, RN notes reviewed, old records reviewed Mode of arrival: ambulatory Limitations: no limitations - History of Present Illness Initial comments: 34-year-old male presenting with chronic left arm and left leg pain. History of childhood cancer and chronic pain. Denies any injury. Denies fever or chills. He is on Thomas and is requesting an Thomas prescription refill. He follows with pain management but has unable to have an appointment secondary to Parker virus pandemic. No other complaints, pain is typical of his chronic pain unchanged. - Related Data Home Medications Medication Instructions Recorded Confirmed FLUoxetine HCL [PROzac] 20 mg PO HS 07/25/18 06/16/19 lamoTRIgine [LaMICtal] 100 mg PO BID 07/25/18 06/16/19 Previous Rx's Medication Instructions Recorded HYDROcodone/APAP 5-325MG [Thomas 1 tab PO Q6HR PRN #10 tab 10/11/19 5-325] HYDROcodone/APAP 5-325MG [Thomas 1 tab PO Q6HR PRN 3 Days #12 tab 10/24/19 5-325] HYDROcodone/APAP 5-325MG [Thomas 1 tab PO Q6HR PRN #12 tab 11/21/19 5-325] HYDROcodone/APAP 5-325MG [Thomas 1 tab PO Q6HR PRN #10 tab 12/25/19 5-325] HYDROcodone/APAP 5-325MG [Thomas 1 tab PO Q8HR PRN #9 tab 01/13/20 5-325] Allergies Allergy/AdvReac Type Severity Reaction Status Date / Time codeine Allergy Rash/Hives/ Verified 01/13/20 05:22 Itching Review of Systems ROS Statement: Those systems with pertinent positive or pertinent negative responses have been documented in the HPI. ROS Other: All systems not noted in ROS Statement are negative. 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 History of Any Multi-Drug Resistant Organisms: None Reported Past Surgical History: Joint Replacement, Orthopedic Surgery Additional Past Surgical History / Comment(s): Left jaw surgery with plate. Past Anesthesia/Blood Transfusion Reactions: Postoperative Nausea & Vomiting (PONV) Past Psychological History: Anxiety, Bipolar, Depression, PTSD Smoking Status: Former smoker Past Alcohol Use History: None Reported Past Drug Use History: Marijuana - Past Family History Father Family Medical History: Fibromyalgia Additional Family Medical History / Comment(s): Depression, anxiety, 6 herniated disc in back Mother Additional Family Medical History / Comment(s): hip replacement General Exam Limitations: no limitations General appearance: alert, in no apparent distress Head exam: Present: atraumatic, normocephalic Eye exam: Present: normal appearance, PERRL ENT exam: Present: normal exam Neck exam: Present: normal inspection. Absent: tenderness, meningismus Respiratory exam: Present: normal lung sounds bilaterally. Absent: respiratory distress Cardiovascular Exam: Present: regular rate, normal rhythm GI/Abdominal exam: Present: soft. Absent: distended, tenderness Extremities exam: Present: other (Chronic deformity left upper extremity, surgical changes to the left lower extremity. Distal pulses are intact including the left upper and left lower extremity, no signs of infection.) Course Vital Signs 01/13/20 05:18 Temperature 98.2 F Pulse Rate 112 H Respiratory 22 Rate Blood Pressure 117/77 O2 Sat by Pulse 100 Oximetry Medical Decision Making - Medical Decision Making 34-year-old male with chronic pain. I suspect this is component of chronic pain as well as drug-seeking behavior. MAPS reviewed. Patient had a prescription for Suboxone 8 mg filled on quantity 60. He states he has not taking these and he is currently off Suboxone because he does not like the way it makes him feel. He is attempting to follow with his painter rough. I will prescribe 3 days of Thomas 5 mg tablets 3 times daily. Disposition Clinical Impression: Chronic pain of left upper extremity Disposition: HOME SELF-CARE Condition: Good Instructions (If sedation given, give patient instructions): Chronic Pain (ED) Prescriptions: HYDROcodone/APAP 5-325MG [Thomas 5-325] 1 tab PO Q8HR PRN #9 tab PRN Reason: Pain Is patient prescribed a controlled substance at d/c from ED?: Yes Referrals: Bernie Groves MD [Primary Care Provider] - 1-2 days Time of Disposition: 05:50
== END 2020-01-13 05:57 | disposition home or self-care (01) ==
LOC: EC 05:17
DX: G89.29 Other chronic pain (principal); M79.602 Pain in left arm; M79.605 Pain in left leg; F41.9 Anxiety disorder, unspecified; F31.9 Bipolar disorder, unspecified; Z79.899 Other long term (current) drug therapy; Z88.5 Allergy status to narcotic agent; Z87.891 Personal history of nicotine dependence
CPT/HCPCS: 99283

== ENCOUNTER 2020-01-23 07:18 | Emergency (ER) | payer OTHER ==
[2020-01-23 07:24] VITALS: BP 140/84; PULSE 89; RESP 18; TEMP 97.9
[2020-01-23] MEDS ORDERED: HYDROcodone/APAP 5-325MG 1 EACH TAB PO STA (07:36)
--- NOTE | 2020-01-23 07:43 | ED ---
General Adult HPI - General Chief complaint: Recheck/Abnormal Lab/Rx Stated complaint: chronic left arm and left leg pain Time Seen by Provider: 01/23/20 07:25 Source: patient, RN notes reviewed, old records reviewed Mode of arrival: ambulatory Limitations: no limitations - History of Present Illness Initial comments: 34-year-old male patient presents to ED for evaluation of chronic left arm and left leg pain. Patient had osteosarcoma at age 7 had multiple surgeries from a leading to chronic pain. Patient states that he has been unable to be seen by his touch up painter. Patient is requesting a refill of his Kennard. Denies any new or acute injury. Systemic: Pt denies fatigue, fever/chills, rash. Pt denies weakness, night sweats, weight loss. Neuro: Pt denies headache, visual disturbances, syncope or pre-syncope. HEENT: Pt denies ocular discharge or irritation, otalgia, rhinorrhea, pharyngitis or notable lymphadenopathy. Cardiopulmonary: Pt denies chest pain, SOB, heart palpitations, dyspnea on exertion. Abdominal/GI: Pt denies abdominal pain, n/v/d. : Pt denies dysuria, burning w/ urination, frequency/urgency. Denies new onset urinary or bowel incontinence. Neuro: Pt denies new onset weakness, paresthesias. - Related Data Home Medications Medication Instructions Recorded Confirmed FLUoxetine HCL [PROzac] 20 mg PO HS 07/25/18 06/16/19 lamoTRIgine [LaMICtal] 100 mg PO BID 07/25/18 06/16/19 Previous Rx's Medication Instructions Recorded HYDROcodone/APAP 5-325MG [Kennard 1 tab PO Q6HR PRN #10 tab 10/11/19 5-325] HYDROcodone/APAP 5-325MG [Kennard 1 tab PO Q6HR PRN 3 Days #12 tab 10/24/19 5-325] HYDROcodone/APAP 5-325MG [Kennard 1 tab PO Q6HR PRN #12 tab 11/21/19 5-325] HYDROcodone/APAP 5-325MG [Kennard 1 tab PO Q6HR PRN #10 tab 12/25/19 5-325] HYDROcodone/APAP 5-325MG [Kennard 1 tab PO Q8HR PRN #9 tab 01/13/20 5-325] Allergies Allergy/AdvReac Type Severity Reaction Status Date / Time codeine Allergy Rash/Hives/ Verified 01/23/20 07:24 Itching Review of Systems ROS Statement: Those systems with pertinent positive or pertinent negative responses have been documented in the HPI. ROS Other: All systems not noted in ROS Statement are negative. 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 History of Any Multi-Drug Resistant Organisms: None Reported Past Surgical History: Joint Replacement, Orthopedic Surgery Additional Past Surgical History / Comment(s): Left jaw surgery with plate. Past Anesthesia/Blood Transfusion Reactions: Postoperative Nausea & Vomiting (PONV) Past Psychological History: Anxiety, Bipolar, Depression, PTSD Smoking Status: Former smoker Past Alcohol Use History: None Reported Past Drug Use History: Marijuana - Past Family History Father Family Medical History: Fibromyalgia Additional Family Medical History / Comment(s): Depression, anxiety, 6 herniated disc in back Mother Additional Family Medical History / Comment(s): hip replacement General Exam - General Exam Comments Initial Comments: Constitutional: NAD, AOX3, Pt has pleasant affect. HEENT: NC/AT, trachea midline, neck supple. External ears appear normal, without discharge. Mucous membranes moist. There is no scleral icterus. No pallor noted. Cardiopulmonary: RRR, no murmurs, rubs or gallops, no JVD noted. Lungs CTAB in anterior and posterior duvall. No peripheral edema. Abdominal exam: Abdomen soft and non-distended. Abdomen non-tender to palpation in all 4 quadrants. Bowel sounds active in LLQ. No hepatosplenomegaly. No ecchymosis Neuro: CN II-XII grossly intact. No nuchal rigidity. No raccon eyes, no perla sign. MSK: Left shoulder and left anterior tibia and fibula did display postoperative changes. No focal area of tenderness. No external skin changes. Neurovascularly intact. Pulses are +2 radial and posterior tibialis bilaterally. Limitations: no limitations Course Vital Signs 01/23/20 07:21 Temperature 97.9 F Pulse Rate 89 Respiratory 18 Rate Blood Pressure 140/84 O2 Sat by Pulse 100 Oximetry Medical Decision Making - Medical Decision Making 34-year-old male patient presents to ED for evaluation of chronic left arm and left leg pain. Patient had osteosarcoma at age 7 had multiple surgeries from a leading to chronic pain. Patient states that he has been unable to be seen by his touch up painter. Patient is requesting a refill of his Kennard. Denies any new or acute injury. Pt vital signs stable, afebrile. Physical exam does display left shoulder and left anterior tibia and fibula postoperative changes. No focal area of tenderness. No external skin changes. Neurovascularly intact. Pulses are +2 radial and posterior tibialis bilaterally. Pt was administered one dose of analgesia in the emergency department however I'll not refill his chronic pain medication. Patient will follow-up with his touch up painter as he is scheduled to on 02/02 and will return to ER if condition worsens. Will follow up with PCP tomorrow. Case discussed with Dr. Ramos Disposition Clinical Impression: Chronic pain Disposition: HOME SELF-CARE Condition: Stable Instructions (If sedation given, give patient instructions): Pain Management (ED) Additional Instructions: Follow-up with pain management as scheduled as well as primary care provider to heather. Return to ER if condition worsens. Is patient prescribed a controlled substance at d/c from ED?: No Referrals: Bernie Groves MD [Primary Care Provider] - 1-2 days
== END 2020-01-23 08:18 | disposition home or self-care (01) ==
LOC: EC 07:18
DX: G89.29 Other chronic pain (principal); M79.605 Pain in left leg; M79.602 Pain in left arm; G62.9 Polyneuropathy, unspecified; F31.9 Bipolar disorder, unspecified; F43.10 Post-traumatic stress disorder, unspecified; F41.9 Anxiety disorder, unspecified; Z88.5 Allergy status to narcotic agent; Z79.899 Other long term (current) drug therapy; Z85.830 Personal history of malignant neoplasm of bone; Z98.890 Other specified postprocedural states
CPT/HCPCS: 99283

== ENCOUNTER 2020-01-30 16:42 | Emergency (ER) | payer OTHER ==
[2020-01-30 16:54] VITALS: BP 137/80; PULSE 82; RESP 18; TEMP 98.1
[2020-01-30] MEDS ORDERED: KETOROLAC 30 MG/ML 1 ML VIAL IM STA (17:26)
[2020-01-30] MEDS ORDERED: MORPHINE SULFATE 4 MG/ML SYRINGE IM STA (17:26)
[2020-01-30] MEDS ORDERED: traMADol 50 MG STARTER PACK 3 TAB BTL PO STA (17:26)
--- NOTE | 2020-01-30 17:27 | ED ---
Upper Extremity HPI - General Chief Complaint: Extremity Injury, Upper Stated Complaint: lt arm/leg pain Time Seen by Provider: 01/30/20 17:05 Source: patient Mode of arrival: ambulatory Limitations: no limitations - History of Present Illness Initial Comments: 34-year-old male patient presents to the emergency department today for evaluation of chronic left arm and left leg pain. Patient states he has history of osteosarcoma as a child did have multiple surgeries to the left arm and left leg. Patient states she has chronic pain to this location. States he was receiving pain medication from his psychiatrist but he stopped taking it. States he was getting prescriptions for Modoc 7.5 at one point but they were discontinued. States that's what works best for his pain. He does have a new plan with his paint factory worker on the of this month. He denies any new pain to the extremities. Denies any injury. Denies fever or chill s.Patient denies any headache, neck pain, back pain, chest pain, shortness of breath, dizziness, weakness, abdominal pain, nausea, vomiting, or difficulties with bowel movements or urination. - Related Data Home Medications Medication Instructions Recorded Confirmed FLUoxetine HCL [PROzac] 20 mg PO HS 07/25/18 06/16/19 lamoTRIgine [LaMICtal] 100 mg PO BID 07/25/18 06/16/19 Previous Rx's Medication Instructions Recorded HYDROcodone/APAP 5-325MG [Modoc 1 tab PO Q6HR PRN #10 tab 10/11/19 5-325] HYDROcodone/APAP 5-325MG [Modoc 1 tab PO Q6HR PRN 3 Days #12 tab 10/24/19 5-325] HYDROcodone/APAP 5-325MG [Modoc 1 tab PO Q6HR PRN #12 tab 11/21/19 5-325] HYDROcodone/APAP 5-325MG [Modoc 1 tab PO Q6HR PRN #10 tab 12/25/19 5-325] HYDROcodone/APAP 5-325MG [Modoc 1 tab PO Q8HR PRN #9 tab 01/13/20 5-325] Allergies Allergy/AdvReac Type Severity Reaction Status Date / Time codeine Allergy Rash/Hives/ Verified 01/23/20 07:24 Itching Review of Systems ROS Statement: Those systems with pertinent positive or pertinent negative responses have been documented in the HPI. ROS Other: All systems not noted in ROS Statement are negative. 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 History of Any Multi-Drug Resistant Organisms: None Reported Past Surgical History: Joint Replacement, Orthopedic Surgery Additional Past Surgical History / Comment(s): Left jaw surgery with plate. Past Anesthesia/Blood Transfusion Reactions: Postoperative Nausea & Vomiting (PONV) Past Psychological History: Anxiety, Bipolar, Depression, PTSD Smoking Status: Former smoker Past Alcohol Use History: None Reported Past Drug Use History: Marijuana - Past Family History Father Family Medical History: Fibromyalgia Additional Family Medical History / Comment(s): Depression, anxiety, 6 herniated disc in back Mother Additional Family Medical History / Comment(s): hip replacement General Exam Limitations: no limitations General appearance: alert, in no apparent distress, other (This is a well- developed, well-nourished adult male patient in no acute distress. Vital signs upon presentation are temperature 98.1F, pulse 82, respirations 18, blood pressure 137/80, pulse ox 99% on room air.) Eye exam: Present: normal appearance, PERRL, EOMI. Absent: scleral icterus, conjunctival injection, periorbital swelling ENT exam: Present: normal exam, normal oropharynx, mucous membranes moist Respiratory exam: Present: normal lung sounds bilaterally. Absent: respiratory distress, wheezes, rales, rhonchi, stridor Cardiovascular Exam: Present: regular rate, normal rhythm, normal heart sounds. Absent: systolic murmur, diastolic murmur, rubs, gallop, clicks Extremities exam: Present: normal inspection, full ROM, normal capillary refill, other (Patient has surgical changes to the left upper arm and the left lower leg. No erythema or swelling. Skin is pink, warm, dry. Cap refills less than 3 seconds. Radial pulses 2+ and equal bilaterally. Pedal pulses 2+ and equal bilaterally.). Absent: tenderness, pedal edema, joint swelling, calf tenderness Neurological exam: Present: alert, oriented X3, CN II-XII intact Psychiatric exam: Present: normal affect, normal mood Skin exam: Present: warm, dry, intact, normal color. Absent: rash Course Vital Signs 01/30/20 16:52 Temperature 98.1 F Pulse Rate 82 Respiratory 18 Rate Blood Pressure 137/80 O2 Sat by Pulse 99 Oximetry Medical Decision Making - Medical Decision Making 34-year-old male patient presents to the emergency department today for evaluation of chronic left arm and left leg pain. States he is out of his pain medications. He was previously taken Suboxone which he no longer takes. He is out of his Modoc 7.5. He has an appointment with a paint factory worker on February 05 he is requesting medication to get him through until then. Physical examination is unremarkable. He has no new pain or new injury. I will give him a dose of pain medication here in the emergency department a starter pack for Ultram. He is advised that he cannot receive pain medication prescriptions from the emergency department today he must follow-up with his primary care physician or his paint factory worker. He verbalizes understanding he is instructed to follow-up with his primary care physician for recheck in 1-2 days. Return parameters were discussed in detail. He verbalizes understanding and agrees with this plan. Disposition Clinical Impression: Chronic pain of left upper extremity, Chronic pain of left lower extremity Disposition: HOME SELF-CARE Condition: Good Instructions (If sedation given, give patient instructions): Chronic Pain (ED) Additional Instructions: Follow-up with her pain specialist as soon as possible. Follow up with her primary care physician for recheck in 1-2 days. Return to the emergency department immediately for any new, worsening, or concerning symptoms. Is patient prescribed a controlled substance at d/c from ED?: No Referrals: Bernie Groves MD [Primary Care Provider] - 1-2 days Time of Disposition: 17:27
== END 2020-01-30 17:49 | disposition home or self-care (01) ==
LOC: EC 16:42
DX: G89.29 Other chronic pain (principal); M79.602 Pain in left arm; M79.605 Pain in left leg; F41.9 Anxiety disorder, unspecified; F31.9 Bipolar disorder, unspecified; Z79.899 Other long term (current) drug therapy; Z88.5 Allergy status to narcotic agent; Z87.891 Personal history of nicotine dependence; Z85.831 Personal history of malignant neoplasm of soft tissue
CPT/HCPCS: 99283; 96372 ×2; J2270; J1885

== ENCOUNTER 2020-02-01 18:13 | Emergency (ER) | payer OTHER ==
[2020-02-01 18:37] VITALS: BP 127/83; PULSE 83; RESP 18; TEMP 98.9
--- NOTE | 2020-02-01 19:01 | ED ---
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 Patient presents requesting [place] or Ultram. Patient did have Ultram starter pack refill 2 days ago. Patient states he is seeing pain management and less than 5 days.Patient has no other complaints at this time including shortness of breath, chest pain, abdominal pain, nausea or vomiting, headache, or visual changes. - Related Data Home Medications Medication Instructions Recorded Confirmed FLUoxetine HCL [PROzac] 20 mg PO HS 07/25/18 06/16/19 lamoTRIgine [LaMICtal] 100 mg PO BID 07/25/18 06/16/19 Previous Rx's Medication Instructions Recorded HYDROcodone/APAP 5-325MG [[place] 1 tab PO Q6HR PRN #10 tab 10/11/19 5-325] HYDROcodone/APAP 5-325MG [[place] 1 tab PO Q6HR PRN 3 Days #12 tab 10/24/19 5-325] HYDROcodone/APAP 5-325MG [[place] 1 tab PO Q6HR PRN #12 tab 11/21/19 5-325] HYDROcodone/APAP 5-325MG [[place] 1 tab PO Q6HR PRN #10 tab 12/25/19 5-325] HYDROcodone/APAP 5-325MG [[place] 1 tab PO Q8HR PRN #9 tab 01/13/20 5-325] Allergies Allergy/AdvReac Type Severity Reaction Status Date / Time codeine Allergy Rash/Hives/ Verified 02/01/20 18:36 Itching Review of Systems ROS Statement: Those systems with pertinent positive or pertinent negative responses have been documented in the HPI. ROS Other: All systems not noted in ROS Statement are negative. 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 History of Any Multi-Drug Resistant Organisms: None Reported Past Surgical History: Joint Replacement, Orthopedic Surgery Additional Past Surgical History / Comment(s): Left jaw surgery with plate. Past Anesthesia/Blood Transfusion Reactions: Postoperative Nausea & Vomiting (PONV) Past Psychological History: Anxiety, Bipolar, Depression, PTSD Smoking Status: Former smoker Past Alcohol Use History: None Reported Past Drug Use History: Marijuana - Past Family History Father Family Medical History: Fibromyalgia Additional Family Medical History / Comment(s): Depression, anxiety, 6 herniated disc in back Mother Additional Family Medical History / Comment(s): hip replacement General Exam Limitations: no limitations General appearance: alert, in no apparent distress Head exam: Present: atraumatic, normocephalic, normal inspection Eye exam: Present: normal appearance, PERRL, EOMI. Absent: scleral icterus, conjunctival injection, periorbital swelling ENT exam: Present: normal exam, mucous membranes moist Neck exam: Present: normal inspection. Absent: tenderness, meningismus, lymphadenopathy Respiratory exam: Present: normal lung sounds bilaterally. Absent: respiratory distress, wheezes, rales, rhonchi, stridor Cardiovascular Exam: Present: regular rate, normal rhythm, normal heart sounds. Absent: systolic murmur, diastolic murmur, rubs, gallop, clicks Extremities exam: Present: full ROM, normal capillary refill, other (Patient has obvious deformity of the left arm and leg secondary to extensive surgical manipulation from osteogenesis sarcoma.). Absent: tenderness, pedal edema, joint swelling, calf tenderness Course Vital Signs 02/01/20 18:35 Temperature 98.9 F Pulse Rate 83 Respiratory 18 Rate Blood Pressure 127/83 O2 Sat by Pulse 100 Oximetry Medical Decision Making - Medical Decision Making This is patient's 13th visit this year for chronic left arm and leg pain. Patient requesting morphine, [place], or Ultram. I discussed with the patient that we will not be able to give him any more narcotics here in the emergency room for this chronic left arm and leg pain. I did offer Toradol however he refused stating it does not work as well as morphine. Unfortunately, he will have to follow up with his primary care provider or pain management for further narcotics. If patient has any new symptoms he is aware he can return to the emergency department at any time. Disposition Clinical Impression: Chronic pain Disposition: HOME SELF-CARE Condition: Good Instructions (If sedation given, give patient instructions): Chronic Pain (ED) Additional Instructions: Please take Motrin and Tylenol for pain. Follow-up with primary care and pain management for further pain medication. If you have any worsening symptoms return to the emergency department for further evaluation. Is patient prescribed a controlled substance at d/c from ED?: No Referrals: Bernie Groves MD [Primary Care Provider] - 1-2 days Time of Disposition: 19:00
== END 2020-02-01 19:22 | disposition home or self-care (01) ==
LOC: EC 18:13
DX: G89.29 Other chronic pain (principal); M79.602 Pain in left arm; M79.605 Pain in left leg; F41.9 Anxiety disorder, unspecified; F31.9 Bipolar disorder, unspecified; F43.10 Post-traumatic stress disorder, unspecified; Z79.899 Other long term (current) drug therapy; Z87.891 Personal history of nicotine dependence; Z88.5 Allergy status to narcotic agent; Z85.830 Personal history of malignant neoplasm of bone
CPT/HCPCS: 99283

== ENCOUNTER 2020-02-12 16:36 | Emergency (ER) | payer OTHER ==
[2020-02-12] MEDS ORDERED: HYDROcodone/APAP 5-325MG 1 EACH TAB PO STA (17:02)
--- NOTE | 2020-02-12 17:03 | ED ---
Back Pain HPI - General Chief Complaint: Back Pain/Injury Stated Complaint: low back pain Time Seen by Provider: 02/12/20 16:46 Source: patient Limitations: no limitations - History of Present Illness Initial Comments: 34yo male presenting to the ER today for cc of back pain, right sided wtih radiation down leg ongoing x 3 days. Patient states he has chronic low back pain he states it sometimes radiates down his left leg he states occur a few weeks ago he states that that resolved and began again after a few days prior to presentation today. Patient has a numbness tingling loss sensation of the LE denies muscle weakness, loss of bowel bladder control, denies injury or falls. Patient denies IVDU or active cancer. Patient denies additional complaints. Patient has been seen in the ER for this complaint and other areas of chronic pain frequently asking for pain medications and prescriptions by name. - Related Data Home Medications Medication Instructions Recorded Confirmed FLUoxetine HCL [PROzac] 20 mg PO HS 07/25/18 06/16/19 lamoTRIgine [LaMICtal] 100 mg PO BID 07/25/18 06/16/19 Previous Rx's Medication Instructions Recorded HYDROcodone/APAP 5-325MG [[place] 1 tab PO Q6HR PRN #10 tab 10/11/19 5-325] HYDROcodone/APAP 5-325MG [[place] 1 tab PO Q6HR PRN 3 Days #12 tab 10/24/19 5-325] HYDROcodone/APAP 5-325MG [[place] 1 tab PO Q6HR PRN #12 tab 11/21/19 5-325] HYDROcodone/APAP 5-325MG [[place] 1 tab PO Q6HR PRN #10 tab 12/25/19 5-325] HYDROcodone/APAP 5-325MG [[place] 1 tab PO Q8HR PRN #9 tab 01/13/20 5-325] Allergies Allergy/AdvReac Type Severity Reaction Status Date / Time codeine Allergy Rash/Hives/ Verified 02/12/20 16:44 Itching Review of Systems ROS Statement: Those systems with pertinent positive or pertinent negative responses have been documented in the HPI. ROS Other: All systems not noted in ROS Statement are negative. 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 History of Any Multi-Drug Resistant Organisms: None Reported Past Surgical History: Joint Replacement, Orthopedic Surgery Additional Past Surgical History / Comment(s): Left jaw surgery with plate. Past Anesthesia/Blood Transfusion Reactions: Postoperative Nausea & Vomiting (PONV) Past Psychological History: Anxiety, Bipolar, Depression, PTSD Smoking Status: Former smoker Past Alcohol Use History: None Reported Past Drug Use History: Marijuana - Past Family History Father Family Medical History: Fibromyalgia Additional Family Medical History / Comment(s): Depression, anxiety, 6 herniated disc in back Mother Additional Family Medical History / Comment(s): hip replacement General Exam - General Exam Comments Initial Comments: General: The patient is awake and alert, in no distress, and does not appear acutely ill. Eye: Pupils are equal,extra-ocular movements appear intact. No nystagmus. There is normal conjunctiva bilaterally. No signs of icterus. Musculoskeletal: Normal inspection of the back. Normal ROM, of the LE. Strength 5/5 of the LE b/l. Sensation intact of the LE b/l. Pulses equal bilaterally 2+. Neurological: A&O x 3. CN II-XII intact grossly, There are no obvious motor or sensory deficits. Coordination appears grossly intact. Speech is normal. Skin: Skin is warm and dry and no rashes or lesions are noted. Psychiatric: Cooperative, appropriate mood & affect, normal judgment. Limitations: no limitations Course Vital Signs 02/12/20 16:42 Temperature 98.5 F Pulse Rate 81 Respiratory 18 Rate Blood Pressure 123/68 O2 Sat by Pulse 100 Oximetry Medical Decision Making - Medical Decision Making 34yo with history of chronic pain. Come in frequently for same complaint. Requesting norco. Initially refused tylenol #3 starter pack for discharge stating allergy. HOwever when I disclosed that i do not feel comfortable prescribing narcotics from the ED for chronic pain he states he would "just take the tylenol #3" even though he stated he had allergy to codeine. Patient is aware codeine is in norco but states tolerated in past. Patient provided 1 norco for pain in ER. Patient was recommended to have outpatient MRI and f/u [facility] PCP in office. Is to return for leg weakness, sensation deficits of the LE, loss of bowel/bladder control. Patient is agreeable to discharge. Patient ambulatory and appears well on discharge from the ER. Disposition Clinical Impression: Chronic low back pain Disposition: HOME SELF-CARE Condition: Good Instructions (If sedation given, give patient instructions): Acute Low Back Pain (ED) Additional Instructions: Please use medication as discussed. Please follow-up with family doctor in the next 2 days. Please return to emergency room if the symptoms increase or worsen or for any other concerns. Is patient prescribed a controlled substance at d/c from ED?: No Referrals: Bernie Groves MD [Primary Care Provider] - 1-2 days Time of Disposition: 17:03
[2020-02-12 17:38] VITALS: BP 120/75; PULSE 80; RESP 16; TEMP 98.2
== END 2020-02-12 17:16 | disposition home or self-care (01) ==
LOC: EC 16:36
DX: G89.29 Other chronic pain (principal); M54.5 Low back pain; F41.9 Anxiety disorder, unspecified; F31.9 Bipolar disorder, unspecified; Z79.899 Other long term (current) drug therapy; Z85.830 Personal history of malignant neoplasm of bone; Z88.5 Allergy status to narcotic agent; Z87.891 Personal history of nicotine dependence
CPT/HCPCS: 99283

== ENCOUNTER 2020-03-24 08:13 | Emergency (ER) | payer OTHER ==
[2020-03-24 08:19] VITALS: BP 139/91; PULSE 55; RESP 18; TEMP 98.8
[2020-03-24] MEDS ORDERED: KETOROLAC 60 MG/2 ML VIAL IM STA (08:26)
--- NOTE | 2020-03-24 08:28 | ED ---
General Adult HPI - General Chief complaint: Fall Stated complaint: fall/shoulder pain Time Seen by Provider: 03/24/20 08:15 Source: patient, RN notes reviewed, old records reviewed Mode of arrival: ambulatory Limitations: no limitations - History of Present Illness Initial comments: This is a 34-year-old male who presents emergency Department with left shoulder pain. Patient states he had cancer of the bone when he was a child hasn't had it repaired at that time. Patient states he bumped into the corner of all last night and now is having shoulder pain. Patient has full range of motion at his baseline. Patient denies any numbness or weakness. - Related Data Home Medications Medication Instructions Recorded Confirmed FLUoxetine HCL [PROzac] 20 mg PO HS 07/25/18 06/16/19 lamoTRIgine [LaMICtal] 100 mg PO BID 07/25/18 06/16/19 Previous Rx's Medication Instructions Recorded HYDROcodone/APAP 5-325MG [[place] 1 tab PO Q6HR PRN #10 tab 10/11/19 5-325] HYDROcodone/APAP 5-325MG [[place] 1 tab PO Q6HR PRN 3 Days #12 tab 10/24/19 5-325] HYDROcodone/APAP 5-325MG [[place] 1 tab PO Q6HR PRN #12 tab 11/21/19 5-325] HYDROcodone/APAP 5-325MG [[place] 1 tab PO Q6HR PRN #10 tab 12/25/19 5-325] HYDROcodone/APAP 5-325MG [[place] 1 tab PO Q8HR PRN #9 tab 01/13/20 5-325] Allergies Allergy/AdvReac Type Severity Reaction Status Date / Time codeine Allergy Rash/Hives/ Verified 03/24/20 08:14 Itching Review of Systems ROS Statement: Those systems with pertinent positive or pertinent negative responses have been documented in the HPI. ROS Other: All systems not noted in ROS Statement are negative. 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 History of Any Multi-Drug Resistant Organisms: None Reported Past Surgical History: Joint Replacement, Orthopedic Surgery Additional Past Surgical History / Comment(s): Left jaw surgery with plate. Past Anesthesia/Blood Transfusion Reactions: Postoperative Nausea & Vomiting (PONV) Past Psychological History: Anxiety, Bipolar, Depression, PTSD Smoking Status: Current every day smoker Past Alcohol Use History: None Reported Past Drug Use History: Marijuana - Past Family History Father Family Medical History: Fibromyalgia Additional Family Medical History / Comment(s): Depression, anxiety, 6 herniated disc in back Mother Additional Family Medical History / Comment(s): hip replacement General Exam - General Exam Comments Initial Comments: GENERAL Patient is well-developed and well-nourished. Patient is in mild distress. EYES Patient's pupils are equal and round. Extraocular motion is intact SKIN Unremarkable NEURO The patient is alert and oriented 3 PYSCH Patient has normal interpersonal interactions. MUSCULOSKELETAL Patient has some tenderness at the shoulder but there is no abrasion or redness or swelling. Patient has normal range of motion for him. Limitations: no limitations Course Vital Signs 03/24/20 08:14 Temperature 98.8 F Pulse Rate 55 L Respiratory 18 Rate Blood Pressure 139/91 O2 Sat by Pulse 100 Oximetry Medical Decision Making - Medical Decision Making x-ray shows no acute abnormality Disposition Clinical Impression: Chronic shoulder pain, Drug-seeking behavior Disposition: HOME SELF-CARE Condition: Good Instructions (If sedation given, give patient instructions): Chronic Pain (ED) Is patient prescribed a controlled substance at d/c from ED?: No Referrals: Bernie Groves MD [Primary Care Provider] - 1-2 days Time of Disposition: 09:04
--- NOTE | 2020-03-24 08:59 | XR ---
EXAMINATION TYPE: XR shoulder complete LT , 3 VIEWS DATE OF EXAM ORDERED: 03/24/2020 HISTORY: Trauma . COMPARISON: Previous study dated 10/11/2019 there has been a previous resection of the humeral head. T here is been soft tissue surgery along the mid humerus. There are remodeling changes within the humer us suggesting previous fracture. No acute fracture is seen.. FINDINGS: 1. Postsurgical change. 2. No acute osseous lesion. IMPRESSION:
== END 2020-03-24 09:24 | disposition home or self-care (01) ==
LOC: EC 08:13
DX: G89.29 Other chronic pain (principal); M25.512 Pain in left shoulder; Z76.5 Malingerer [conscious simulation]; F41.9 Anxiety disorder, unspecified; F31.9 Bipolar disorder, unspecified; F43.10 Post-traumatic stress disorder, unspecified; Z79.899 Other long term (current) drug therapy; F17.200 Nicotine dependence, unspecified, uncomplicated; Z88.5 Allergy status to narcotic agent; Z85.830 Personal history of malignant neoplasm of bone
CPT/HCPCS: 73030; 96372; 99284; J1885

== ENCOUNTER 2020-06-11 12:58 | Emergency (ER) | payer OTHER ==
[2020-06-11 13:11] VITALS: BP 136/91; PULSE 88; RESP 18; TEMP 97.7
[2020-06-11] MEDS ORDERED: ACET/COD 300 MG/30 MG STARTER PACK 6 TAB BTL PO STA (13:27)
--- NOTE | 2020-06-11 13:29 | ED ---
ENT HPI - General Chief complaint: Dental/Oral Stated complaint: Dental Pain Time Seen by Provider: 06/11/20 13:13 Source: patient Mode of arrival: ambulatory Limitations: no limitations - History of Present Illness Initial comments: Patient 34-year-old male presenting to emergency Department with a chief complaint abdominal pain. Patient reports the pain is located in his left upper region of the mouth. He states he had multiple teeth pulled throughout the last few months. Patient states that this pain is not going away. Does report taking Tylenol Motrin at home with no significant improvement in symptoms. Denies alleviating or aggravating factors. Denies any facial swelling night sweats fevers or chills. - Related Data Home Medications Medication Instructions Recorded Confirmed Buprenorphine HCl/Naloxone HCl 1 film SUBLINGUAL DIRECTED 06/11/20 06/11/20 [Suboxone 8 mg-2 mg Sl Film] Venlafaxine HCl ER [Effexor Xr] 75 mg PO DAILY 06/11/20 06/11/20 lamoTRIgine [LaMICtal] 150 mg PO BID 06/11/20 06/11/20 Allergies Allergy/AdvReac Type Severity Reaction Status Date / Time codeine Allergy Rash/Hives/ Verified 06/11/20 13:27 Itching Review of Systems ROS Statement: Those systems with pertinent positive or pertinent negative responses have been documented in the HPI. ROS Other: All systems not noted in ROS Statement are negative. 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 History of Any Multi-Drug Resistant Organisms: None Reported Past Surgical History: Joint Replacement, Orthopedic Surgery Additional Past Surgical History / Comment(s): Left jaw surgery with plate. Past Anesthesia/Blood Transfusion Reactions: Postoperative Nausea & Vomiting (PONV) Past Psychological History: Anxiety, Bipolar, Depression, PTSD Smoking Status: Current every day smoker Past Alcohol Use History: None Reported Past Drug Use History: Marijuana - Past Family History Father Family Medical History: Fibromyalgia Additional Family Medical History / Comment(s): Depression, anxiety, 6 herniated disc in back Mother Additional Family Medical History / Comment(s): hip replacement General Exam Limitations: no limitations General appearance: alert, in no apparent distress Head exam: Present: atraumatic, normocephalic, normal inspection Eye exam: Present: normal appearance, PERRL, EOMI Pupils: Present: normal accommodation ENT exam: Present: normal exam, normal oropharynx (Multiple extracted teeth. No signs of periapical abscess or gingival irritation at this time.), mucous membranes moist, TM's normal bilaterally, normal external ear exam Neck exam: Present: normal inspection, full ROM. Absent: tenderness Respiratory exam: Present: normal lung sounds bilaterally. Absent: respiratory distress, wheezes, rales Cardiovascular Exam: Present: regular rate, normal rhythm, normal heart sounds Extremities exam: Present: normal inspection, full ROM, normal capillary refill. Absent: tenderness Back exam: Present: normal inspection, full ROM. Absent: tenderness, CVA tenderness (R), CVA tenderness (L) Neurological exam: Present: alert, oriented X3 Psychiatric exam: Present: normal affect, normal mood Skin exam: Present: warm, dry, intact, normal color Course Vital Signs 06/11/20 13:08 Temperature 97.7 F Pulse Rate 88 Respiratory 18 Rate Blood Pressure 136/91 O2 Sat by Pulse 99 Oximetry Medical Decision Making - Medical Decision Making Patient 34-year-old male presenting to emergency Department with a chief complaint abdominal pain. On physical examination, there is no gingival irritation or signs of periapical abscess. He does have pain in the left upper region of his teeth particularly tooth #13. Difficult to determine the exact number of the tooth due to multiple extracted teeth. Patient will be started on Augmentin. Patient given Tylenol 3 starter pack. Return parameters thoroughly discussed with patient is understanding agreeable. He is advised to follow-up with a dentist. Case discussed with physician. Disposition Clinical Impression: Pain, dental Disposition: HOME SELF-CARE Condition: Stable Instructions (If sedation given, give patient instructions): Toothache (ED) Additional Instructions: Follow with a dentist. Return to emergency department if symptoms worsen. Is patient prescribed a controlled substance at d/c from ED?: No Referrals: Bernie Gorves MD [Primary Care Provider] - 1-2 days Time of Disposition: 13:28
== END 2020-06-11 13:56 | disposition home or self-care (01) ==
LOC: EC 12:58
DX: K08.89 Other specified disorders of teeth and supporting structures (principal); R10.9 Unspecified abdominal pain; F41.9 Anxiety disorder, unspecified; F31.9 Bipolar disorder, unspecified; F43.10 Post-traumatic stress disorder, unspecified; F17.200 Nicotine dependence, unspecified, uncomplicated; Z79.891 Long term (current) use of opiate analgesic; Z79.899 Other long term (current) drug therapy; Z88.5 Allergy status to narcotic agent; Z96.60 Presence of unspecified orthopedic joint implant; Z85.831 Personal history of malignant neoplasm of soft tissue
CPT/HCPCS: 99282

== ENCOUNTER 2020-07-12 02:11 | Emergency (ER) | payer OTHER ==
[2020-07-12 02:24] VITALS: BP 124/76; PULSE 104; RESP 20; TEMP 97.9
[2020-07-12] MEDS ORDERED: PENICILLIN V POTASSIUM 250 MG TAB PO STA (02:34)
[2020-07-12] MEDS ORDERED: traMADol 50 MG TAB PO STA (02:34)
[2020-07-12] MEDS ORDERED: IBUPROFEN 600 MG STARTER PACK 4 TAB BTL PO STA (02:34)
[2020-07-12] MEDS ORDERED: traMADol 50 MG STARTER PACK 3 TAB BTL PO STA (02:34)
[2020-07-12] MEDS ORDERED: IBUPROFEN 800 MG TAB PO STA (02:34)
[2020-07-12] MEDS ORDERED: PENICILLIN VK 500MG STARTER 4 TAB BTL PO STA (02:34)
--- NOTE | 2020-07-12 02:35 | ED ---
ENT HPI - General Chief complaint: Dental/Oral Stated complaint: Dental pain Time Seen by Provider: 07/12/20 02:17 Source: patient, RN notes reviewed, old records reviewed Mode of arrival: ambulatory Limitations: no limitations - History of Present Illness Initial comments: This is a 32-year-old male DF for evaluation patient presents today for evaluati on regards to dental pain known history of dental disease, multiple teeth have been pulled. Patient has severe pain, will be in to see dentist this week MD complaint: tooth pain -: days(s) Location: tooth # (Left upper molar) Severity: moderate Severity scale (1-10): 7 Quality: stabbing Consistency: constant Improves with: none Worsens with: none Context- Dental: history of dental caries Context- Ear: other (None) Associated Symptoms: other (None) - Related Data Home Medications Medication Instructions Recorded Confirmed Buprenorphine HCl/Naloxone HCl 1 film SUBLINGUAL DIRECTED 06/11/20 06/11/20 [Suboxone 8 mg-2 mg Sl Film] Venlafaxine HCl ER [Effexor Xr] 75 mg PO DAILY 06/11/20 06/11/20 lamoTRIgine [LaMICtal] 150 mg PO BID 06/11/20 06/11/20 Previous Rx's Medication Instructions Recorded Amoxicillin/Potassium Clav 1 tab PO Q12HR #20 tab 06/11/20 [Augmentin 875-125 Tablet] Penicillin V Potassium [Pen Vee K] 500 mg PO Q6HR #40 tablet 07/12/20 Allergies Allergy/AdvReac Type Severity Reaction Status Date / Time codeine Allergy Rash/Hives/ Verified 07/12/20 02:24 Itching Review of Systems ROS Statement: Those systems with pertinent positive or pertinent negative responses have been documented in the HPI. ROS Other: All systems not noted in ROS Statement are negative. 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 History of Any Multi-Drug Resistant Organisms: None Reported Past Surgical History: Joint Replacement, Orthopedic Surgery Additional Past Surgical History / Comment(s): Left jaw surgery with plate. Past Anesthesia/Blood Transfusion Reactions: Postoperative Nausea & Vomiting (PONV) Past Psychological History: Anxiety, Bipolar, Depression, PTSD Smoking Status: Current every day smoker Past Alcohol Use History: None Reported Past Drug Use History: Marijuana - Past Family History Father Family Medical History: Fibromyalgia Additional Family Medical History / Comment(s): Depression, anxiety, 6 herniated disc in back Mother Additional Family Medical History / Comment(s): hip replacement General Exam Limitations: no limitations General appearance: alert, in no apparent distress Head exam: Present: atraumatic, normocephalic, normal inspection Eye exam: Present: normal appearance, PERRL, EOMI. Absent: scleral icterus, conjunctival injection, periorbital swelling ENT exam: Present: normal exam, mucous membranes moist, other (Left upper tooth and molar tender) Neck exam: Present: normal inspection. Absent: tenderness, meningismus, lymphadenopathy Respiratory exam: Present: normal lung sounds bilaterally. Absent: respiratory distress, wheezes, rales, rhonchi, stridor Cardiovascular Exam: Present: regular rate, normal rhythm, normal heart sounds. Absent: systolic murmur, diastolic murmur, rubs, gallop, clicks GI/Abdominal exam: Present: soft, normal bowel sounds. Absent: distended, tenderness, guarding, rebound, rigid Extremities exam: Present: normal inspection, full ROM, normal capillary refill. Absent: tenderness, pedal edema, joint swelling, calf tenderness Back exam: Present: normal inspection Neurological exam: Present: alert, oriented X3, CN II-XII intact Psychiatric exam: Present: normal affect, normal mood Skin exam: Present: warm, dry, intact, normal color. Absent: rash Course Vital Signs 07/12/20 02:21 Temperature 97.9 F Pulse Rate 104 H Respiratory 20 Rate Blood Pressure 124/76 O2 Sat by Pulse 100 Oximetry - Reevaluation(s) Reevaluation #1: Medical record is reviewed Patient is improvement versus resolution of symptoms Spoke with patient regarding findings here in the ER questions answered Patient feels good for discharge Medical Decision Making - Medical Decision Making 34 male with left upper molar pain. Dental caries with abscess. Patient be given pain management antibiotics Disposition Clinical Impression: Dental abscess, Dental caries Disposition: HOME SELF-CARE Condition: Good Instructions (If sedation given, give patient instructions): Dental Abscess (ED), Toothache (ED) Prescriptions: Penicillin V Potassium [Pen Vee K] 500 mg PO Q6HR #40 tablet Is patient prescribed a controlled substance at d/c from ED?: No Referrals: Bernie Groves MD [Primary Care Provider] - 1-2 days
== END 2020-07-12 02:55 | disposition home or self-care (01) ==
LOC: EC 02:11
DX: K04.7 Periapical abscess without sinus (principal); K02.9 Dental caries, unspecified; F17.200 Nicotine dependence, unspecified, uncomplicated; F41.9 Anxiety disorder, unspecified; F31.9 Bipolar disorder, unspecified; Z79.899 Other long term (current) drug therapy; Z88.5 Allergy status to narcotic agent; Z85.830 Personal history of malignant neoplasm of bone
CPT/HCPCS: 99283

== ENCOUNTER 2020-07-16 23:38 | Emergency (ER) | payer OTHER ==
[2020-07-16 23:51] VITALS: BP 126/87; PULSE 98; RESP 18; TEMP 99.8
[2020-07-17] MEDS ORDERED: traMADol 50 MG STARTER PACK 3 TAB BTL PO STA (00:19)
--- NOTE | 2020-07-17 00:31 | ED ---
General Adult HPI - General Chief complaint: Dental/Oral Stated complaint: Mouth Abscess Time Seen by Provider: 07/16/20 23:54 Source: patient, RN notes reviewed, old records reviewed Mode of arrival: ambulatory Limitations: no limitations - History of Present Illness Initial comments: 35-year-old male patient to ED. Patient is requesting a work note. Patient reports that he has been having a toothache for she went to emergency department 5 days ago, has been on antibiotic since. Patient reports that he left work early because it is hurting him he needs a note to go back to work. He is seeing his dentist next week. He denies any fevers or chills cough congestion abdominal pain. Systemic: Pt denies fatigue, fever/chills, rash. Pt denies weakness, night sweats, weight loss. Neuro: Pt denies headache, visual disturbances, syncope or pre-syncope. HEENT: Pt denies ocular discharge or irritation, otalgia, rhinorrhea, pharyngitis or notable lymphadenopathy. Cardiopulmonary: Pt denies chest pain, SOB, heart palpitations, dyspnea on exertion. Abdominal/GI: Pt denies abdominal pain, n/v/d. : Pt denies dysuria, burning w/ urination, frequency/urgency. Denies new onset urinary or bowel incontinence. MSK: Pt denies myalgia, loss of strength or function in extremities. Neuro: Pt denies new onset weakness, paresthesias. - Related Data Home Medications Medication Instructions Recorded Confirmed Buprenorphine HCl/Naloxone HCl 1 film SUBLINGUAL DIRECTED 06/11/20 06/11/20 [Suboxone 8 mg-2 mg Sl Film] Venlafaxine HCl ER [Effexor Xr] 75 mg PO DAILY 06/11/20 06/11/20 lamoTRIgine [LaMICtal] 150 mg PO BID 06/11/20 06/11/20 Previous Rx's Medication Instructions Recorded Amoxicillin/Potassium Clav 1 tab PO Q12HR #20 tab 06/11/20 [Augmentin 875-125 Tablet] Penicillin V Potassium [Pen Vee K] 500 mg PO Q6HR #40 tablet 07/12/20 Allergies Allergy/AdvReac Type Severity Reaction Status Date / Time codeine Allergy Rash/Hives/ Verified 07/16/20 23:52 Itching Review of Systems ROS Statement: Those systems with pertinent positive or pertinent negative responses have been documented in the HPI. ROS Other: All systems not noted in ROS Statement are negative. 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 History of Any Multi-Drug Resistant Organisms: None Reported Past Surgical History: Joint Replacement, Orthopedic Surgery Additional Past Surgical History / Comment(s): Left jaw surgery with plate. Past Anesthesia/Blood Transfusion Reactions: Postoperative Nausea & Vomiting (PONV) Past Psychological History: Anxiety, Bipolar, Depression, PTSD Smoking Status: Current every day smoker Past Alcohol Use History: None Reported Past Drug Use History: Marijuana - Past Family History Father Family Medical History: Fibromyalgia Additional Family Medical History / Comment(s): Depression, anxiety, 6 herniated disc in back Mother Additional Family Medical History / Comment(s): hip replacement General Exam - General Exam Comments Initial Comments: Constitutional: NAD, AOX3, Pt has pleasant affect. HEENT: NC/AT, trachea midline, neck supple, no lymphadenopathy. Posterior pharynx non erythematous, without exudates. External ears appear normal, without discharge. Mucous membranes moist. Eyes PERRLA, EOM intact. There is no scleral icterus. No pallor noted. Broken tooth noted left upper jaw, no abscess no purulent drainage. Cardiopulmonary: RRR, no murmurs, rubs or gallops, no JVD noted. Lungs CTAB in anterior and posterior duvall. No peripheral edema. Abdominal exam: Abdomen soft and non-distended. Abdomen non-tender to palpation in all 4 quadrants. Bowel sounds active in LLQ. No hepatosplenomegaly. No ecchymosis Neuro: CN II-XII grossly intact. No nuchal rigidity. MSK: Full active ROM in upper and lower extremities, 5/5 stregnth. Limitations: no limitations Course Vital Signs 07/16/20 23:49 Temperature 99.8 F H Pulse Rate 98 Respiratory 18 Rate Blood Pressure 126/87 O2 Sat by Pulse 98 Oximetry Medical Decision Making - Medical Decision Making 35-year-old male patient to ED for work note. Patient vital signs are stable. Physical exam doesn't display broken tooth causing his pain. No abscess or purulent drainage are noted. Patient will continue on antibiotics will follow- up with primary care provider tomorrow and return for any worsening symptoms. Case discussed with Dr. Kaur. Disposition Clinical Impression: Pain, dental Disposition: HOME SELF-CARE Condition: Stable Instructions (If sedation given, give patient instructions): Toothache (ED) Additional Instructions: Follow up with PCP and dentist tomorrow. Continue to take antibiotics. Return to ED with any worsening symptoms. Is patient prescribed a controlled substance at d/c from ED?: No Referrals: Bernie Groves MD [Primary Care Provider] - 1-2 days
== END 2020-07-17 00:53 | disposition home or self-care (01) ==
LOC: EC 23:38
DX: Z02.1 Encounter for pre-employment examination (principal); K08.89 Other specified disorders of teeth and supporting structures; F17.200 Nicotine dependence, unspecified, uncomplicated; F41.9 Anxiety disorder, unspecified; F31.9 Bipolar disorder, unspecified; Z79.899 Other long term (current) drug therapy; Z88.5 Allergy status to narcotic agent; Z85.830 Personal history of malignant neoplasm of bone
CPT/HCPCS: 99283

== ENCOUNTER 2020-12-13 22:43 | Emergency (ER) | payer OTHER ==
[2020-12-13 22:47] VITALS: BP 133/89; PULSE 105; RESP 18; TEMP 97.9
--- NOTE | 2020-12-13 23:22 | ED ---
Recheck HPI - General Chief Complaint: Recheck/Abnormal Lab/Rx Stated Complaint: wants 's note Time Seen by Provider: 12/13/20 23:21 Source: patient, RN notes reviewed, old records reviewed Mode of arrival: ambulatory Limitations: no limitations - History of Present Illness Complaint: wound re-check, abnormal lab -: days(s) Initial Visit For: other (none) Returns Today for: Called Because of Abnormal Lab/Test, request for prescription (work note), persistent/worsening pain related to initial visit Symptoms Since Prior Visit: no new symptoms Context: planned re-check Associated Symptoms: none Treatments Prior to Arrival: other (none) - Related Data Home Medications Medication Instructions Recorded Confirmed Buprenorphine HCl/Naloxone HCl 1 film SUBLINGUAL DIRECTED 06/11/20 06/11/20 [Suboxone 8 mg-2 mg Sl Film] Venlafaxine HCl ER [Effexor Xr] 75 mg PO DAILY 06/11/20 06/11/20 lamoTRIgine [LaMICtal] 150 mg PO BID 06/11/20 06/11/20 Previous Rx's Medication Instructions Recorded Amoxicillin/Potassium Clav 1 tab PO Q12HR #20 tab 06/11/20 [Augmentin 875-125 Tablet] Penicillin V Potassium [Pen Vee K] 500 mg PO Q6HR #40 tablet 07/12/20 Allergies Allergy/AdvReac Type Severity Reaction Status Date / Time codeine Allergy Rash/Hives/ Verified 07/16/20 23:52 Itching Review of Systems ROS Statement: Those systems with pertinent positive or pertinent negative responses have been documented in the HPI. ROS Other: All systems not noted in ROS Statement are negative. 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 History of Any Multi-Drug Resistant Organisms: None Reported Past Surgical History: Joint Replacement, Orthopedic Surgery Additional Past Surgical History / Comment(s): Left jaw surgery with plate. Past Anesthesia/Blood Transfusion Reactions: Postoperative Nausea & Vomiting (PONV) Past Psychological History: Anxiety, Bipolar, Depression, PTSD Smoking Status: Current every day smoker Past Alcohol Use History: None Reported Past Drug Use History: Marijuana - Past Family History Father Family Medical History: Fibromyalgia Additional Family Medical History / Comment(s): Depression, anxiety, 6 herniated disc in back Mother Additional Family Medical History / Comment(s): hip replacement General Exam Limitations: no limitations General appearance: alert, in no apparent distress Head exam: Present: atraumatic, normocephalic, normal inspection Eye exam: Present: normal appearance, PERRL, EOMI. Absent: scleral icterus, conjunctival injection, periorbital swelling ENT exam: Present: normal exam, mucous membranes moist Neck exam: Present: normal inspection. Absent: tenderness, meningismus, lymphadenopathy Respiratory exam: Present: normal lung sounds bilaterally. Absent: respiratory distress, wheezes, rales, rhonchi, stridor Cardiovascular Exam: Present: regular rate, normal rhythm, normal heart sounds. Absent: systolic murmur, diastolic murmur, rubs, gallop, clicks GI/Abdominal exam: Present: soft, normal bowel sounds. Absent: distended, tenderness, guarding, rebound, rigid Extremities exam: Present: normal inspection, full ROM, normal capillary refill. Absent: tenderness, pedal edema, joint swelling, calf tenderness Back exam: Present: normal inspection Neurological exam: Present: alert, oriented X3, CN II-XII intact Psychiatric exam: Present: normal affect, normal mood Skin exam: Present: warm, dry, intact, normal color. Absent: rash Course Vital Signs 12/13/20 22:44 Temperature 97.9 F Pulse Rate 105 H Respiratory 18 Rate Blood Pressure 133/89 O2 Sat by Pulse 99 Oximetry - Reevaluation(s) Reevaluation #1: Medical record is reviewed Patient symptoms are significantly improved here in the emergency department Patient family informed of results, questions answered Disposition Clinical Impression: Normal exam Disposition: HOME SELF-CARE Condition: Good Instructions (If sedation given, give patient instructions): Normal Exam (ED) Is patient prescribed a controlled substance at d/c from ED?: No Referrals: Bernie Groves MD [Primary Care Provider] - 1-2 days
== END 2020-12-13 23:34 | disposition home or self-care (01) ==
LOC: EC 22:43
DX: Z00.00 Encounter for general adult medical examination without abnormal findings (principal); F41.9 Anxiety disorder, unspecified; F32.9 Major depressive disorder, single episode, unspecified; F17.200 Nicotine dependence, unspecified, uncomplicated; F12.90 Cannabis use, unspecified, uncomplicated
CPT/HCPCS: 99281

== ENCOUNTER 2021-04-29 11:19 | Emergency (ER) | payer OTHER ==
[2021-04-29 11:38] VITALS: BP 142/93; PULSE 89; RESP 20; TEMP 98.3
[2021-04-29] MEDS ORDERED: ACET/COD 300 MG/30 MG STARTER PACK 6 TAB BTL PO STA (12:13)
[2021-04-29] MEDS ORDERED: PENICILLIN VK 500MG STARTER 4 TAB BTL PO STA (12:13)
--- NOTE | 2021-04-29 12:15 | ED ---
General Adult HPI - General Chief complaint: Dental/Oral Stated complaint: Dental Pain Time Seen by Provider: 04/29/21 11:42 Source: patient, RN notes reviewed Mode of arrival: ambulatory Limitations: no limitations - History of Present Illness Initial comments: 35-year-old male presents to the emergency room for a chief complaint of dental pain. Patient has had fractured front teeth for months. However the past 2 weeks they have started hurting. Patient called his dentist and cannot get in her couple weeks but does have an appointment scheduled. Patient denies any neck pain or stiffness. Denies fevers or chills.Patient has no other complaints at this time including shortness of breath, chest pain, abdominal pain, nausea or vomiting, headache, or visual changes. - Related Data Home Medications Medication Instructions Recorded Confirmed Buprenorphine HCl/Naloxone HCl 1 film SUBLINGUAL DIRECTED 06/11/20 06/11/20 [Suboxone 8 mg-2 mg Sl Film] Venlafaxine HCl ER [Effexor Xr] 75 mg PO DAILY 06/11/20 06/11/20 lamoTRIgine [LaMICtal] 150 mg PO BID 06/11/20 06/11/20 Previous Rx's Medication Instructions Recorded Amoxicillin/Potassium Clav 1 tab PO Q12HR #20 tab 06/11/20 [Augmentin 875-125 Tablet] Penicillin V Potassium [Pen Vee K] 500 mg PO Q6HR #40 tablet 07/12/20 Allergies Allergy/AdvReac Type Severity Reaction Status Date / Time codeine Allergy Rash/Hives/ Verified 04/29/21 11:37 Itching Review of Systems ROS Statement: Those systems with pertinent positive or pertinent negative responses have been documented in the HPI. ROS Other: All systems not noted in ROS Statement are negative. 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 History of Any Multi-Drug Resistant Organisms: None Reported Past Surgical History: Joint Replacement, Orthopedic Surgery Additional Past Surgical History / Comment(s): Left jaw surgery with plate. lt shoulder Past Anesthesia/Blood Transfusion Reactions: Postoperative Nausea & Vomiting (PONV) Past Psychological History: Anxiety, Bipolar, Depression, PTSD Smoking Status: Current every day smoker Past Alcohol Use History: None Reported Past Drug Use History: Marijuana - Past Family History Father Family Medical History: Fibromyalgia Additional Family Medical History / Comment(s): Depression, anxiety, 6 herniated disc in back Mother Additional Family Medical History / Comment(s): hip replacement General Exam Limitations: no limitations General appearance: alert, in no apparent distress Head exam: Present: atraumatic Eye exam: Present: normal appearance, PERRL, EOMI. Absent: scleral icterus ENT exam: Present: mucous membranes moist. Absent: normal oropharynx (Poor dentition noted. Patient does have fractures noted to the teeth 10 and 11. There are no dental abscesses noted.) Neck exam: Present: normal inspection, full ROM. Absent: tenderness Respiratory exam: Present: normal lung sounds bilaterally. Absent: respiratory distress, wheezes Cardiovascular Exam: Present: regular rate, normal rhythm, normal heart sounds Course Vital Signs 04/29/21 11:35 Temperature 98.3 F Pulse Rate 89 Respiratory 20 Rate Blood Pressure 142/93 O2 Sat by Pulse 98 Oximetry Medical Decision Making - Medical Decision Making Patient will be treated with penicillin VK. Patient states he has been taking Motrin and Tylenol without relief. He will be given Tylenol 3. States he does tolerate Tylenol 3 well, and is not ALLERGIC. He will also take Motrin in addition. He will follow up with his dentist. He will return for any worsening symptoms. Disposition Clinical Impression: Pain, dental Disposition: HOME SELF-CARE Condition: Good Instructions (If sedation given, give patient instructions): Toothache (ED) Additional Instructions: Please follow-up with your dentist. Return to the emergency room for any worsening symptoms. Is patient prescribed a controlled substance at d/c from ED?: No Referrals: Bernie Groves MD [Primary Care Provider] - 1-2 days Time of Disposition: 12:14
== END 2021-04-29 12:30 | disposition home or self-care (01) ==
LOC: EC 11:19
DX: K08.89 Other specified disorders of teeth and supporting structures (principal); F31.9 Bipolar disorder, unspecified; F41.9 Anxiety disorder, unspecified; F12.90 Cannabis use, unspecified, uncomplicated; F17.200 Nicotine dependence, unspecified, uncomplicated; Z79.899 Other long term (current) drug therapy
CPT/HCPCS: 99282

== ENCOUNTER 2021-04-30 22:05 | Emergency (ER) | payer OTHER ==
[2021-04-30 22:16] VITALS: BP 142/89; PULSE 124; RESP 20; TEMP 98.5
[2021-04-30] MEDS ORDERED: MORPHINE SULFATE 4 MG/ML SYRINGE IV STA (22:32)
[2021-04-30 22:44] LABS: Glucose,Whole Blood 100 mg/dL (75-99)
[2021-04-30 22:54] LABS: Basophils % (A) 0 %; Eosinophils % (A) 0 %; HCT 40.2 % (39.0-53.0); HGB 13.4 gm/dL (13.0-17.5); Lymphocytes # (A) 2.1 k/uL (1.0-4.8); Lymphocytes % (A) 32 %; MCH 29.8 pg (25.0-35.0); MCHC 33.4 g/dL (31.0-37.0); MCV 89.2 fL (80.0-100.0); Mean Platelet Volume 7.7; Monocytes # (A) 0.4 k/uL (0-1.0); Monocytes % (A) 7 %; Neutrophils # (A) 3.8 k/uL (1.3-7.7); Neutrophils % (A) 58 %; Platelet Count 182 k/uL (150-450); RBC 4.51 m/uL (4.30-5.90); RDW 12.2 % (11.5-15.5); WBC 6.7 k/uL (3.8-10.6)
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
[2021-04-30 23:00] LABS: ALT 34 U/L (4-49); AST 48 U/L (17-59); African American GFR (CKD) >90 (>60 ml/min/1.73 sqM); Alcohol <10 mg/dL; Alkaline Phosphatase 95 U/L (38-126); Anion Gap 5 mmol/L; Blood Urea Nitrogen 12 mg/dL (9-20); Calcium 8.9 mg/dL (8.4-10.2); Carbon Dioxide 31 mmol/L (22-30); Chloride 102 mmol/L (98-107); Glucose 102 mg/dL (74-99); INR 0.9 (<1.2); Non-African American GFR(CKD) >90 (>60 ml/min/1.73 sqM); Partial Thromboplastin Time 22.4 sec (22.0-30.0); Potassium 3.6 mmol/L (3.5-5.1); Prothrombin Time 10.2 sec (9.0-12.0); Sodium 138 mmol/L (137-145); Total Bilirubin 0.2 mg/dL (0.2-1.3); Total Protein 6.8 g/dL (6.3-8.2)
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
[2021-04-30 23:45] LABS: Appearance,Urine Cloudy (Clear); Bacteria,Urine Rare /hpf; Bilirubin,Urine Negative (Negative); Blood,Urine Negative (Negative); Color,Urine Yellow; Glucose,Urine (UA) Negative (Negative); Ketones,Urine Negative (Negative); Leukocyte Esterase,Urine Negative (Negative); Mucus,Urine Rare /hpf; Nitrite,Urine Negative (Negative); Protein,Urine Trace (Negative); RBC,Urine 1 /hpf (0-5); Specific Gravity,Urine 1.029 (1.001-1.035)
[2021-04-30 23:54] LABS: Amphetamine Screen,Urine Not Detected (NotDetected); Cocaine Screen,Urine Detected (NotDetected); Opiate Screen,Urine Detected (NotDetected); Phencyclidine Screen,Urine Not Detected (NotDetected)
[2021-04-30 23:56] LABS: Barbiturate Screen,Urine Not Detected (NotDetected); Benzodiazepines Screen,Urine Detected (NotDetected); Methadone Screen, Urine Detected (NotDetected); Oxycodone Screen, Urine Not Detected (NotDetected); Tricyclic Antidepressant,Urine Not Detected (NotDetected); Urn Cannabinoid Scrn Detected (NotDetected)
[2021-05-01] MEDS ORDERED: IBUPROFEN 600 MG TAB PO STA (00:05)
== END 2021-05-01 00:44 | disposition home or self-care (01) ==
LOC: EC 22:05
DX: S00.83XA Contusion of other part of head, initial encounter (principal); F41.9 Anxiety disorder, unspecified; F31.9 Bipolar disorder, unspecified; F43.12 Post-traumatic stress disorder, chronic; F17.200 Nicotine dependence, unspecified, uncomplicated; F12.90 Cannabis use, unspecified, uncomplicated; Z88.5 Allergy status to narcotic agent; Z79.899 Other long term (current) drug therapy; V03.10XA Pedestrian on foot injured in collision with car, pick-up truck or van in traffic accident, initial encounter; Y93.01 Activity, walking, marching and hiking
CPT/HCPCS: 99284; 96374; 36415; 86900; 86901; 80053; 83605; 84484; 85025; 85610; 85730; 86850; 81001; 80306; 80320; 72170; 71045; 72125; 70450; L0120; J2270

== ENCOUNTER 2021-09-07 03:15 | Emergency (ER) | payer OTHER ==
[2021-09-07 03:29] VITALS: BP 138/80; PULSE 111; RESP 20; TEMP 98.2
[2021-09-07] MEDS ORDERED: traMADol 50 MG STARTER PACK 3 TAB BTL PO STA (03:39)
[2021-09-07] MEDS ORDERED: AMOXIC-POT CLAV 875MG STARTER PACK 2 TAB BTL PO STA (03:39)
[2021-09-07] MEDS ORDERED: IBUPROFEN 600 MG STARTER PACK 4 TAB BTL PO STA (03:40)
--- NOTE | 2021-09-07 03:43 | ED ---
General Adult HPI - General Chief complaint: Dental/Oral Stated complaint: Dental Pain Time Seen by Provider: 09/07/21 03:32 Source: patient Mode of arrival: ambulatory Limitations: no limitations - History of Present Illness Initial comments: 35 year-old male patient presents to the emergency department for evaluation of left upper dental pain. States that he has had poor dentition from receiving chemotherapy as a child. States for the last few days he has had pain worsening with hot and cold, now constant. States he is unable to sleep due to the pain. Denies any fever or chills. Denies nausea or vomiting. States he has been taking Tylenol Motrin without relief. She is unable to get into the dentist until October. States he feels like he may be developing a dental abscess which she has had a the past. - Related Data Home Medications Medication Instructions Recorded Confirmed Buprenorphine HCl/Naloxone HCl 1 film SUBLINGUAL DIRECTED 06/11/20 06/11/20 [Suboxone 8 mg-2 mg Sl Film] Venlafaxine HCl ER [Effexor Xr] 75 mg PO DAILY 06/11/20 06/11/20 lamoTRIgine [LaMICtal] 150 mg PO BID 06/11/20 06/11/20 Previous Rx's Medication Instructions Recorded Amoxicillin/Potassium Clav 1 tab PO Q12HR #20 tab 06/11/20 [Augmentin 875-125 Tablet] Penicillin V Potassium [Pen Vee K] 500 mg PO Q6HR #40 tablet 07/12/20 Ibuprofen [Motrin] 600 mg PO Q8HR PRN #20 tab 05/01/21 Amoxic-Pot Clav 875-125Mg 1 tab PO Q12HR #20 tablet 09/07/21 [Augmentin 875-125] traMADol HCl [Ultram] 50 mg PO Q6H PRN #12 tab 09/07/21 Allergies Allergy/AdvReac Type Severity Reaction Status Date / Time codeine Allergy Rash/Hives/ Verified 09/07/21 03:29 Itching Review of Systems ROS Statement: Those systems with pertinent positive or pertinent negative responses have been documented in the HPI. ROS Other: All systems not noted in ROS Statement are negative. 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 History of Any Multi-Drug Resistant Organisms: None Reported Past Surgical History: Joint Replacement, Orthopedic Surgery Additional Past Surgical History / Comment(s): Left jaw surgery with plate. lt shoulder Past Anesthesia/Blood Transfusion Reactions: Postoperative Nausea & Vomiting (PONV) Past Psychological History: Anxiety, Bipolar, Depression, PTSD Smoking Status: Current every day smoker Past Alcohol Use History: None Reported Past Drug Use History: Marijuana - Past Family History Father Family Medical History: Fibromyalgia Additional Family Medical History / Comment(s): Depression, anxiety, 6 herniated disc in back Mother Additional Family Medical History / Comment(s): hip replacement General Exam Limitations: no limitations General appearance: alert, in no apparent distress, other (This is a well- developed, well-nourished adult male in no acute distress.) ENT exam: Present: mucous membranes moist, other (There is very poor dentition, dental decay and caries noted. There is broken tooth #10. Mild surrounding gingival erythema. No evidence for drainable abscess.). Absent: normal exam Neck exam: Present: normal inspection. Absent: tenderness, meningismus, lymphadenopathy Respiratory exam: Present: normal lung sounds bilaterally. Absent: respiratory distress, wheezes, rales, rhonchi, stridor Cardiovascular Exam: Present: regular rate, normal rhythm, normal heart sounds. Absent: systolic murmur, diastolic murmur, rubs, gallop, clicks Neurological exam: Present: alert, oriented X3, CN II-XII intact Psychiatric exam: Present: normal affect, normal mood Skin exam: Present: warm, dry, intact, normal color. Absent: rash Course Vital Signs 09/07/21 03:26 Temperature 98.2 F Pulse Rate 111 H Respiratory 20 Rate Blood Pressure 138/80 O2 Sat by Pulse 98 Oximetry Medical Decision Making - Medical Decision Making 35-year-old male patient presents for evaluation of dental pain and possible abscess. Physical examination did reveal broken and decayed tooth #10. No evidence for drainable abscess. He is afebrile. He is given pain medication start on antibiotics. Instructed to call his dentist to see if there is any cancellations or sooner appointments. Return parameters were discussed in detail. He verbalizes understanding and agrees with this plan. My attending is Dr. Chand. Disposition Clinical Impression: Dental caries, Dental infection Disposition: HOME SELF-CARE Condition: Good Instructions (If sedation given, give patient instructions): Dental Abscess (ED), Toothache (ED) Additional Instructions: Follow up with the dentist as soon as possible. Return for any new, worsening, or concerning symptoms. Prescriptions: Amoxic-Pot Clav 875-125Mg [Augmentin 875-125] 1 tab PO Q12HR #20 tablet traMADol HCl [Ultram] 50 mg PO Q6H PRN #12 tab PRN Reason: Pain Is patient prescribed a controlled substance at d/c from ED?: No Referrals: Bernie Groves MD [Primary Care Provider] - 1-2 days Time of Disposition: 03:43
== END 2021-09-07 04:09 | disposition home or self-care (01) ==
LOC: EC 03:15
DX: K02.9 Dental caries, unspecified (principal); F17.200 Nicotine dependence, unspecified, uncomplicated; Z88.5 Allergy status to narcotic agent
CPT/HCPCS: 99282

== ENCOUNTER 2021-10-21 06:49 | Emergency (ER) | payer OTHER ==
[2021-10-21 06:54] VITALS: BP 153/84; PULSE 94; RESP 18; TEMP 97.6
--- NOTE | 2021-10-21 07:21 | ED ---
"General Adult HPI - General Chief complaint: Dental/Oral Stated complaint: Dental Pain Time Seen by Provider: 10/21/21 07:05 Source: patient Mode of arrival: ambulatory - History of Present Illness Initial comments: Dictation was produced using [employer] dictation software. please excuse any grammatical, word or spelling errors. Chief Complaint: 35-year-old male presents with dental pain History of Present Illness: 35-year-old male who presents emergency department for dental pain. Patient states that he was here in emergency department one month ago for the same issue. Patient states that he's had bad luck with dental issues. States that he was treated for cancer and ever since then has had poor dentition. His had multiple teeth removed. Patient states he has pain over tooth #11. He has a dentist in [place] however is unable to follow up until November 17. Patient states pain is benign with for 2 days. Denies any constitutional symptoms. The ROS documented in this emergency department record has been reviewed and confirmed by me. Those systems with pertinent positive or negative responses have been documented in the HPI. All other systems are other negative and/or noncontributory. PHYSICAL EXAM: General Impression: Alert and oriented x3, not in acute distress HEENT: Normocephalic atraumatic, extra-ocular movements intact, pupils equal and reactive to light bilaterally, mucous membranes moist. Oral exam: Poor dentition, several rotting teeth, no gingival abscess, there is some erythema at the apical gingival area of tooth #11 and 12 Cardiovascular: Heart regular rate and rhythm Chest: Able to complete full sentences, no retractions, no tachypnea Motor: no focal deficits noted Neurological: CN II-XII grossly intact, no focal motor or sensory deficits noted Skin: Intact with no visualized rashes Psych: Normal affect and mood ED course:. 35-year-old male presents to the emergency department for dental pain. No drainable abscess identified.. She has poor dentition. Vital signs upon arrival are within acceptable limits. Patient given starter pack for when necessary analgesia and anabiotic's. He is urged to follow up with dentist as soon as possible. - Related Data Home Medications Medication Instructions Recorded Confirmed Buprenorphine HCl/Naloxone HCl 1 film SUBLINGUAL DIRECTED 06/11/20 06/11/20 [Suboxone 8 mg-2 mg Sl Film] Venlafaxine HCl ER [Effexor Xr] 75 mg PO DAILY 06/11/20 06/11/20 lamoTRIgine [LaMICtal] 150 mg PO BID 06/11/20 06/11/20 Previous Rx's Medication Instructions Recorded Amoxicillin/Potassium Clav 1 tab PO Q12HR #20 tab 06/11/20 [Augmentin 875-125 Tablet] Penicillin V Potassium [Pen Vee K] 500 mg PO Q6HR #40 tablet 07/12/20 Ibuprofen [Motrin] 600 mg PO Q8HR PRN #20 tab 05/01/21 Amoxic-Pot Clav 875-125Mg 1 tab PO Q12HR #20 tablet 09/07/21 [Augmentin 875-125] traMADol HCl [Ultram] 50 mg PO Q6H PRN #12 tab 09/07/21 Amoxic-Pot Clav 875-125Mg 1 tab PO BID 14 Days #40 tab 10/21/21 [Augmentin 875-125] Allergies Allergy/AdvReac Type Severity Reaction Status Date / Time codeine Allergy Rash/Hives/ Verified 10/21/21 06:54 Itching Review of Systems ROS Statement: Those systems with pertinent positive or pertinent negative responses have been documented in the HPI. ROS Other: All systems not noted in ROS Statement are negative. 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 History of Any Multi-Drug Resistant Organisms: None Reported Past Surgical History: Joint Replacement, Orthopedic Surgery Additional Past Surgical History / Comment(s): Left jaw surgery with plate. lt shoulder Past Anesthesia/Blood Transfusion Reactions: Postoperative Nausea & Vomiting (PONV) Past Psychological History: Anxiety, Bipolar, Depression, PTSD Smoking Status: Current every day smoker Past Alcohol Use History: None Reported Past Drug Use History: Marijuana - Past Family History Father Family Medical History: Fibromyalgia Additional Family Medical History / Comment(s): Depression, anxiety, 6 herniated disc in back Mother Additional Family Medical History / Comment(s): hip replacement Course Vital Signs 10/21/21 06:50 Temperature 97.6 F Pulse Rate 94 Respiratory 18 Rate Blood Pressure 153/84 O2 Sat by Pulse 97 Oximetry Disposition Clinical Impression: Pain, dental Disposition: HOME SELF-CARE Condition: Good Instructions (If sedation given, give patient instructions): Toothache (ED) Prescriptions: Amoxic-Pot Clav 875-125Mg [Augmentin 875-125] 1 tab PO BID 14 Days #40 tab Is patient prescribed a controlled substance at d/c from ED?: No Referrals: Bernie Groves MD [Primary Care Provider] - 1-2 days"
[2021-10-21] MEDS ORDERED: traMADol 50 MG STARTER PACK 3 TAB BTL PO STA (07:22)
== END 2021-10-21 07:34 | disposition home or self-care (01) ==
LOC: EC 06:49
DX: K08.89 Other specified disorders of teeth and supporting structures (principal); F31.9 Bipolar disorder, unspecified; F41.9 Anxiety disorder, unspecified; F17.200 Nicotine dependence, unspecified, uncomplicated; F12.90 Cannabis use, unspecified, uncomplicated; Z79.899 Other long term (current) drug therapy
CPT/HCPCS: 99282

== ENCOUNTER 2021-12-03 14:00 | Emergency (ER) | payer OTHER ==
[2021-12-03 14:24] VITALS: BP 146/88; PULSE 109; RESP 18; TEMP 99.7
[2021-12-03] MEDS ORDERED: traMADol 50 MG STARTER PACK 3 TAB BTL PO STA (15:29)
[2021-12-03] MEDS ORDERED: IBUPROFEN 600 MG TAB PO STA (15:31)
--- NOTE | 2021-12-03 15:31 | ED ---
General Adult HPI - General Chief complaint: Dental/Oral Stated complaint: Dental Pain Time Seen by Provider: 12/03/21 15:05 Source: patient, RN notes reviewed Mode of arrival: ambulatory Limitations: no limitations - History of Present Illness Initial comments: Patient is a pleasant 36-year-old male presenting to the emergency department for complaints of dental pain. Patient states he needs have 2 teeth extracted. Patient states he has been trying to get an appointment for several months now and has 1 Mario this month. No swelling. No fevers. Patient does have old antibiotic prescription that he just started of Augmentin. Patient request pain pills. Patient refuses pain shots. Patient is tolerating oral intake. No dyspnea. - Related Data Home Medications Medication Instructions Recorded Confirmed Buprenorphine HCl/Naloxone HCl 1 film SUBLINGUAL DIRECTED 06/11/20 06/11/20 [Suboxone 8 mg-2 mg Sl Film] Venlafaxine HCl ER [Effexor Xr] 75 mg PO DAILY 06/11/20 06/11/20 lamoTRIgine [LaMICtal] 150 mg PO BID 06/11/20 06/11/20 Previous Rx's Medication Instructions Recorded Amoxicillin/Potassium Clav 1 tab PO Q12HR #20 tab 06/11/20 [Augmentin 875-125 Tablet] Penicillin V Potassium [Pen Vee K] 500 mg PO Q6HR #40 tablet 07/12/20 Ibuprofen [Motrin] 600 mg PO Q8HR PRN #20 tab 05/01/21 Amoxic-Pot Clav 875-125Mg 1 tab PO Q12HR #20 tablet 09/07/21 [Augmentin 875-125] traMADol HCl [Ultram] 50 mg PO Q6H PRN #12 tab 09/07/21 Amoxic-Pot Clav 875-125Mg 1 tab PO BID 14 Days #40 tab 10/21/21 [Augmentin 875-125] Amoxic-Pot Clav 875-125Mg 1 tab PO Q12HR #20 tablet 11/27/21 [Augmentin 875-125] Allergies Allergy/AdvReac Type Severity Reaction Status Date / Time codeine Allergy Rash/Hives/ Verified 12/03/21 14:24 Itching Review of Systems ROS Statement: Those systems with pertinent positive or pertinent negative responses have been documented in the HPI. ROS Other: All systems not noted in ROS Statement are negative. Constitutional: Denies: fever Eyes: Denies: eye pain ENT: Reports: dental pain. 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 History of Any Multi-Drug Resistant Organisms: None Reported Past Surgical History: Joint Replacement, Orthopedic Surgery Additional Past Surgical History / Comment(s): Left jaw surgery with plate. lt shoulder Past Anesthesia/Blood Transfusion Reactions: Postoperative Nausea & Vomiting (PONV) Past Psychological History: Anxiety, Bipolar, Depression, PTSD Smoking Status: Current every day smoker Past Alcohol Use History: None Reported Past Drug Use History: Marijuana - Past Family History Father Family Medical History: Fibromyalgia Additional Family Medical History / Comment(s): Depression, anxiety, 6 herniated disc in back Mother Additional Family Medical History / Comment(s): hip replacement General Exam Limitations: no limitations General appearance: alert, in no apparent distress Head exam: Present: normocephalic Eye exam: Present: normal appearance ENT exam: Present: other (Left upper central and lateral incisor and canine with dental decay. No swelling or abscess.) Neck exam: Present: normal inspection. Absent: tenderness, lymphadenopathy Respiratory exam: Present: normal lung sounds bilaterally Cardiovascular Exam: Present: regular rate, normal rhythm GI/Abdominal exam: Present: soft. Absent: tenderness Extremities exam: Present: normal inspection Neurological exam: Present: alert Psychiatric exam: Present: normal affect, normal mood Skin exam: Present: normal color Course Vital Signs 12/03/21 14:20 Temperature 99.7 F H Pulse Rate 109 H Respiratory 18 Rate Blood Pressure 146/88 O2 Sat by Pulse 99 Oximetry Disposition Clinical Impression: Dental caries Disposition: HOME SELF-CARE Condition: Stable Instructions (If sedation given, give patient instructions): Toothache (ED) Additional Instructions: Please follow-up with your dentist in the next couple of weeks as scheduled. Please try to get sooner appointment. Please also follow-up to primary care doctor in the next day or 2 for recheck. Return for fever, increased pain, swelling, worsening or changing symptoms or other concerns. Is patient prescribed a controlled substance at d/c from ED?: No Referrals: Bernie Groves MD [Primary Care Provider] - 1-2 days Time of Disposition: 15:30
== END 2021-12-03 15:48 | disposition home or self-care (01) ==
LOC: EC 14:00
DX: K02.9 Dental caries, unspecified (principal); F41.9 Anxiety disorder, unspecified; F31.9 Bipolar disorder, unspecified; F43.10 Post-traumatic stress disorder, unspecified; F17.200 Nicotine dependence, unspecified, uncomplicated; F12.90 Cannabis use, unspecified, uncomplicated; Z88.5 Allergy status to narcotic agent; Z96.612 Presence of left artificial shoulder joint
CPT/HCPCS: 99282

== ENCOUNTER 2022-02-25 17:23 | Emergency (ER) | payer OTHER ==
[2022-02-25 17:27] VITALS: BP 146/96; PULSE 117; RESP 20
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
== END 2022-02-25 18:05 | disposition home or self-care (01) ==
LOC: EC 17:23
DX: S01.91XA Laceration without foreign body of unspecified part of head, initial encounter (principal); Y04.8XXA Assault by other bodily force, initial encounter; Z88.5 Allergy status to narcotic agent; F17.200 Nicotine dependence, unspecified, uncomplicated

== ENCOUNTER 2022-07-16 10:23 | Emergency (ER) | payer OTHER ==
[2022-07-16 10:36] VITALS: BP 124/79; PULSE 96; RESP 18; TEMP 97.3
[2022-07-16] MEDS ORDERED: HYDROcodone/APAP 5-325MG 1 EACH TAB PO STA (10:55)
[2022-07-16] MEDS ORDERED: PENICILLIN V POTASSIUM 250 MG TAB PO STA (10:56)
[2022-07-16] MEDS ORDERED: IBUPROFEN 600 MG STARTER PACK 4 TAB BTL PO STA (11:00)
[2022-07-16] MEDS ORDERED: traMADol 50 MG STARTER PACK 3 TAB BTL PO STA (11:00)
[2022-07-16] MEDS ORDERED: PENICILLIN VK 500MG STARTER 4 TAB BTL PO STA (11:00)
--- NOTE | 2022-07-16 11:02 | ED ---
ENT HPI - General Chief complaint: Dental/Oral Stated complaint: dental pain Time Seen by Provider: 07/16/22 10:37 Source: patient, RN notes reviewed Mode of arrival: ambulatory Limitations: no limitations - History of Present Illness Initial comments: This is a 36-year-old male who presents to the emergency department for dental pain. States that this is in the left upper side of his jaw. Symptoms have been present for the last 2-3 days. He is taking ibuprofen with no relief. He does have an appointment with his dentist on 08/06 but is unable to get in any sooner. He has a history of multiple dental caries and poor teeth overall, which he was told is secondary to the chemotherapy he received when he was younger for osteogenic sarcoma. Denies any fevers, chills, sore throat, cough, dyspnea, chest pain, palpitations, abdominal pain, nausea, vomiting, diarrhea, back pain, or headaches. MD complaint: tooth pain Onset/Timin -: days(s) - Related Data Home Medications Medication Instructions Recorded Confirmed Buprenorphine HCl/Naloxone HCl 1 film SUBLINGUAL DIRECTED 06/11/20 06/11/20 [Suboxone 8 mg-2 mg Sl Film] Venlafaxine HCl ER [Effexor Xr] 75 mg PO DAILY 06/11/20 06/11/20 lamoTRIgine [LaMICtal] 150 mg PO BID 06/11/20 06/11/20 Previous Rx's Medication Instructions Recorded Amoxicillin/Potassium Clav 1 tab PO Q12HR #20 tab 06/11/20 [Augmentin 875-125 Tablet] Ibuprofen [Motrin] 600 mg PO Q8HR PRN #20 tab 05/01/21 Amoxic-Pot Clav 875-125Mg 1 tab PO Q12HR #20 tablet 09/07/21 [Augmentin 875-125] traMADol HCl [Ultram] 50 mg PO Q6H PRN #12 tab 09/07/21 Amoxic-Pot Clav 875-125Mg 1 tab PO BID 14 Days #40 tab 10/21/21 [Augmentin 875-125] Amoxic-Pot Clav 875-125Mg 1 tab PO Q12HR #20 tablet 11/27/21 [Augmentin 875-125] Ketorolac [Toradol] 10 mg PO Q6HR PRN #16 tab 11/23/22 Penicillin V Potassium [Pen Vee K] 500 mg PO Q6HR #40 tablet 07/16/22 Allergies Allergy/AdvReac Type Severity Reaction Status Date / Time codeine Allergy Rash/Hives/ Verified 07/16/22 10:35 Itching Review of Systems ROS Statement: Those systems with pertinent positive or pertinent negative responses have been documented in the HPI. ROS Other: All systems not noted in ROS Statement are negative. 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 History of Any Multi-Drug Resistant Organisms: None Reported Past Surgical History: Joint Replacement, Orthopedic Surgery Additional Past Surgical History / Comment(s): Left jaw surgery with plate. lt shoulder Past Anesthesia/Blood Transfusion Reactions: Postoperative Nausea & Vomiting (PONV) Past Psychological History: Anxiety, Bipolar, Depression, PTSD Smoking Status: Former smoker Past Alcohol Use History: None Reported Past Drug Use History: Marijuana - Past Family History Father Family Medical History: Fibromyalgia Additional Family Medical History / Comment(s): Depression, anxiety, 6 herniated disc in back Mother Additional Family Medical History / Comment(s): hip replacement General Exam Limitations: no limitations General appearance: alert, in no apparent distress Head exam: Present: atraumatic, normocephalic, normal inspection ENT exam: Present: other (Multiple dental caries and he has a chipped tooth to the left upper side of the jaw. There is also mild swelling to the left cheek.) Respiratory exam: Present: normal lung sounds bilaterally. Absent: respiratory distress, wheezes, rales, rhonchi, stridor Cardiovascular Exam: Present: regular rate, normal rhythm, normal heart sounds. Absent: systolic murmur, diastolic murmur, rubs, gallop, clicks Neurological exam: Present: alert, oriented X3, CN II-XII intact Psychiatric exam: Present: normal affect, normal mood Skin exam: Present: warm, dry, intact, normal color. Absent: rash Course Vital Signs 07/16/22 10:33 Temperature 97.3 F L Pulse Rate 96 Respiratory 18 Rate Blood Pressure 124/79 O2 Sat by Pulse 99 Oximetry Medical Decision Making - Medical Decision Making This is a 36-year-old male who presents to the emergency department for dental pain. Prescription for 10 day course of Pen-Vee K provided. The first dose was administered in the emergency department. He was also given a prescription for Toradol. Advised that if he chooses to take the Toradol, he should avoid any other [id number]-usuartl anti-inflammatories such as ibuprofen. Warm moist heat was suggested as well. Encouraged him to contact his dentist and see if he can get a sooner appointment, and if not he will follow up as scheduled. Return precautions reviewed in depth, the patient is instructed to return to the emergency department with any new, worsening, or concerning symptoms. Patient verbalized understanding. This case was discussed in detail with the attending ED physician. Presentation, findings, and treatment plan discussed in detail as well. Disposition Clinical Impression: Dental abscess Disposition: HOME SELF-CARE Instructions (If sedation given, give patient instructions): Dental Abscess (ED), Toothache (ED) Additional Instructions: Return to the emergency department with any new, worsening, or concerning symptoms. Take the antibiotic as prescribed for 10 days. You can take the Toradol up to every 6 hours as needed for pain relief, however if you choose to take this do not take ibuprofen or other fcuz-iec-yoyzsep anti-inflammatories. You can also try applying warm moist heat. Follow-up with your dentist as scheduled. Prescriptions: Penicillin V Potassium [Pen Vee K] 500 mg PO Q6HR #40 tablet Ketorolac [Toradol] 10 mg PO Q6HR PRN #16 tab PRN Reason: Pain Is patient prescribed a controlled substance at d/c from ED?: No Referrals: Bernie Groves MD [Primary Care Provider] - 1-2 days
== END 2022-07-16 11:23 | disposition home or self-care (01) ==
LOC: EC 10:23
DX: K04.7 Periapical abscess without sinus (principal); F41.9 Anxiety disorder, unspecified; F32.A Depression, unspecified; F12.90 Cannabis use, unspecified, uncomplicated; Z88.5 Allergy status to narcotic agent; Z79.891 Long term (current) use of opiate analgesic
CPT/HCPCS: 99282